=== PATIENT | female | born 1960 | race Caucasian/White ===

== ENCOUNTER → 2022-10-11 | Outpatient (CLI) | payer OTHER, SELFPAY ==
--- NOTE | 2022-10-11 14:18 | BI_ITS ---
MAMMOGRAPHY - BILATERAL SCREENING REASON FOR EXAM: Female, 62 years old. Routine annual screening examination. PERTINENT HISTORY: Mother with breast cancer. TECHNIQUE: Digital bilateral breast lucio (3D mammographic acquisition) in the CC and MLO projections. 2-D mediolateral oblique (MLO) and craniocaudad (CC) views of both breasts were obtained. CAD: Full Field Digital Mammography with Computer Added Detection was performed. COMPARISON: Comparison is made with prior study dated 03/20/2012. FINDINGS: Breast Composition: The breasts are almost entirely fatty. There are no dominant masses or suspicious calcifications. A tissue clip marker is seen in the upper midportion of the right Stable small benign-appearing bilateral axillary lymph nodes. No other significant abnormalities are identified. There has been no significant change since the prior study. BI/SCRN MAMM (CAD)W/LUCIO BILAT IMPRESSION: Stable bilateral screening mammogram. Yearly follow-up mammogram recommended. (A) ASSESSMENT CATEGORY: BIRADS Category 2: Benign. A letter regarding these results will be sent to the patient by the facility within 30 days. Approximately 10% of breast cancers are not detected by mammography. A normal mammogram should not delay biopsy of a clinically suspicious abnormality. [id number] Electronically Signed: Sae Crawford MD at 9:00 EST ,
== END | disposition home or self-care (01) ==
LOC: OPBI 14:15
DX: Z12.31 Encounter for screening mammogram for malignant neoplasm of breast (principal); Z80.3 Family history of malignant neoplasm of breast
CPT/HCPCS: 77063; 77067

== ENCOUNTER 2023-06-22 10:19 | Emergency (ER) | payer OTHER, SELFPAY ==
[2023-06-22 10:20] VITALS: BP 151/81; PULSE 93; RESP 18; TEMP 35.8; O2SAT 97; BMI 41.5
--- NOTE | 2023-06-22 10:36 | EDS_ITS ---
HPI History of Present Illness Chief Complaint: Back PFSH PFSH Home Medications oxycodone 5 mg capsule 5 mg PO Q6H PRN pain 3 days #12 caps 06/22/23 [Rx Last Taken Unknown] prednisone 50 mg tablet 50 mg PO DAILY 5 days #5 tabs 06/22/23 [Rx Last Taken Unknown] sulfamethoxazole 800 mg-trimethoprim 160 mg tablet (Bactrim DS) 1 tab PO BID 7 days #14 tabs 06/22/23 [Rx Last Taken Unknown] Allergy/AdvReac Type Severity Reaction Status Date / Time No Known Allergies Allergy Verified 06/22/23 10:23 EXAM Physical Exam Const Vital Signs: 06/22/23 10:20 Temperature 96.5 F L Temperature Source Temporal Pulse Rate 93 Respiratory Rate 18 Blood Pressure 151/81 H Blood Pressure Mean 104 Pulse Ox 97 Oxygen Delivery Method Room Air [facility] [place] Narrative Medical decision making narrative: HISTORY OF PRESENT ILLNESS: 63year-old female presents s with back pain. Patient states she is been doing this for 3 weeks. Notes sciatic pain. States been taking gabapentin with no relief. She also complains of concern for infection located over her posterior right thigh. Patient denies any saddle anesthesia, urinary tension, bowel or bladder incontinence, lower extremity weakness, fever or IV drug use, no recent spinal manipulation or surgery, no recent urinary catheterization. REVIEW OF SYSTEMS: All other systems reviewed and are negative except as noted in the history of present illness. At least 10 review of systems reviewed and are negative except as noted in history of present illness. PHYSICAL EXAM: Nursing triage notes reviewed, Vital signs reviewed Constitutional: please see mdm HENT: MMM Eyes: Pupils equal round and reactive to light, Extraocular muscles intact Neck: No stridor, no JVD, full neck ROM Lungs: Clear to auscultation, No wheezing or rales. No increased work of breathing, no conversational dyspnea, no accessory muscle use, no nasal flaring. No respiratory distress noted Heart: Regular rate and rhythm, No murmurs, No rubs and No gallops, 2+ distal pulses (radial, femoral, posterior tibial) in all extremities Abdomen: Soft, there is no tenderness, rigidity, rebound or guarding, no obvious peritoneal signs, no palpable pulsatile abdominal masses, no auscultated abdominal bruit : No CVAT Extremities: No edema Back: No midline step-offs or deformities Neuro: Intact sensation L1-S1 dermatomal distributions. Intact 5/5 strength in hip flexion (T12-L3). Knee extension (L2-L4). Ankle dorsiflexion (L4-L5). Ankle plantar flexion (S1). Great toe extension (L5). 2+ patellar and Achilles DTRs. Skin: Erythema noted to posterior right thigh, no fluctuance, no induration, no crepitus MEDICAL DECISION MAKING: Chief Complaint: Back pain External records reviewed: No recent advanced imaging of the spine Factors affecting care: None Social determinants of health: No IV drug use History obtained from others: none Consults: none ALL IMAGES (IF OBTAINED) HAVE BEEN PERSONALLY REVIEWED AND INTERPRETED BY MYSELF. MDM Narrative: The patient was hemodynamically stable, afebrile, nontoxic-appearing. Exam consistent with likely right thigh cellulitis and sciatic or musculoskeletal back pain I considered the following differential diagnosis: Musculoskeletal back pain, space-occupying lesion of the spinal (epidural abscess, epidural hematoma), cauda equina, conus medullaris, fracture dislocation, AAA, nephrolithiasis, pyelonephritis, aortic dissection The patient presented complaining of back pain. There was no history of recent fall or trauma. There was no evidence to support genitourinary etiology. There is also no evidence to suggest vascular pathology such as AAA dissection. No fevers or other evidence to suspect infectious processes, abscess, osteomyelitis etc. The patient?s neurological exam is normal with normal motor and sensory. There is no saddle paresthesias reported and no bowel or bladder incontinence or retention. I suspect the pain is mechanical in nature. Clinical suspicion, plan of care and management was discussed with the patient. The patient was instructed to follow up with their health care provider. The patient was also instructed to return if the pain worsened, changed, or developed weakness or bowel or bladder trouble. The patient agreed with plan. I completed a structured, evidence-based clinical evaluation to screen for acute non-traumatic spinal emergencies. The patient has a normal detailed neurologic exam and red flag historical factors were negative. The evidence indicates that the patient is very low risk for an acute spinal emergency and this is consistent with my clinical intuition. The risk of further workup is higher than the likelihood of the patient having a spinal epidural abscess or other dangerous emergency spinal condition. It is, therefore, in the patient?s best interest not to do additional emergent testing at this time. Shared Decision-Making I have discussed with the patient my clinical impression and the result of an evidence-based clinical evaluation to screen for spinal epidural abscess and other spinal emergencies, as well as the risk of further testing and hospitalization. The evidence shows that the risk for an acute spinal emergency is less than 1%. Although the risk of an acute spinal emergency has not been completely eliminated, the risks of further testing likely exceed any potential benefit, and the patient agrees with not pursuing further emergent evaluation for causes of back pain at this time. The patient and/or family, caregivers express understanding. The patient and/or family, caregivers agrees with the plan. Total critical care time today provided was at least 0 minutes. This excludes separately billable procedures. Critical care time (if documented) is secondary to the patient having high probability of clinically significant/life threatening deterioration in the patient's condition which required my urgent intervention. Elkin Blackman DO Discharge Plan Triage Chief Complaint: Back ED Provider: Elkin Blackman Dx/Rx/DC Orders Clinical Impression: Cellulitis, Sciatic radiculitis Instructions: Cellulitis Dc, ED Sciatica Prescriptions: New oxycodone 5 mg capsule 5 mg PO Q6H PRN (Reason: pain) 3 Days Qty: 12 0RF prednisone 50 mg tablet 50 mg PO DAILY 5 Days Qty: 5 0RF sulfamethoxazole-trimethoprim [Bactrim DS] 800-160 mg tablet 1 tab PO BID 7 Days Qty: 14 0RF [facility] [facility]errals[place] [facility] [Primary Care Provider] - Activity Restrictions/Additional Instructions: Thank you for trusting us with your care today! Please take Tylenol (2 pills, 650 mg), ibuprofen every 6 hours as needed for pain and fever control. If this does not control your pain please take oxycodone. Please take prednisone as prescribed. Please return to the emergency department if your symptoms change or worsen. Specifically develop bowel or bladder incontinence, urinary retention, lack of sensation around your private parts or saddle anesthesia, lack of the ability to move your legs, decree sensation in your legs. Please follow with your primary care physician for further outpatient evaluation and management. Disposition Disposition: Home, Self Care
[2023-06-22] MEDS: Oxycodone/Apap 5/325 Tablet PO (11:24)
[2023-06-22] MEDS: Smz/Tmp Ds Tablet 1 TABLET PO (11:24)
[2023-06-22] MEDS: predniSONE 20 MG Tablet 40 MG PO (11:24)
== END 2023-06-22 11:28 | disposition home or self-care (01) ==
LOC: ED 11:22
PROVIDERS: Emergency Provider Emergency Medicine; Visit Provider Emergency Medicine
DX: M54.31 Sciatica, right side (principal); L03.115 Cellulitis of right lower limb
CPT/HCPCS: 99283

== ENCOUNTER 2023-08-16 16:34 | Emergency (ER) | payer MEDICARE, OTHER, SELFPAY ==
[2023-08-16 16:35] VITALS: BP 124/64; PULSE 74; RESP 16; TEMP 35.9; BMI 40.9
--- NOTE | 2023-08-16 16:48 | ED.VIS.LOWEX ---
HPI History of Present Illness Chief Complaint: Lower Extremity Injury Detail of Chief Complaint: Lateral and medial aspect of proximal right thigh, and anterior right leg p Informant: patient Onset/Context/Timing Onset: Days (Over the past 2 days) and Weeks Timing: Continuous and Waxes and wanes Quality of Pain: - (Pain) Location: Previously documented Maximum Severity: Moderate Worsened by: Movement and weightbearing Relieved by: Not Associated Symptoms Associated Symptoms: Negative for Parasthesia, Weakness or Loss of Funtion Narrative Narrative: Patient is a 63-year-old morbidly obese woman with history of osteoarthritis who needs a right total hip arthroplasty. She states she needs to lose weight before they will operate on her. She denies trauma. She denies symptoms of claudication. She denies fever, chills night sweats. She denies nausea, vomiting or diarrhea. She denies bowel or bladder dysfunction. She denies saddle paresthesia or anesthesia. She denies radicular pain. She localizes the pain over the right greater trochanteric region, medial proximal right thigh near the inguinal region and anterior right leg. She appears in no distress. She has no other symptoms. Patient is in pain management. Tetanus Immunization: Unknown Prior similar symptoms: Yes Recent Illness/Hospitalization: No PFSH PFSH Medical History Anxiety Arthritis Chronic back pain Depression Family history of cholecystectomy Hyperlipidemia Hypertension Kidney disease Home Medications oxycodone 5 mg capsule 5 mg PO Q6H PRN pain 3 days #12 caps 06/22/23 [Rx Last Taken Unknown] prednisone 50 mg tablet 50 mg PO DAILY 5 days #5 tabs 06/22/23 [Rx Last Taken Unknown] sulfamethoxazole 800 mg-trimethoprim 160 mg tablet (Bactrim DS) 1 tab PO BID 7 days #14 tabs 06/22/23 [Rx Last Taken Unknown] Allergy/AdvReac Type Severity Reaction Status Date / Time No Known Allergies Allergy Verified 08/16/23 16:35 Surgical History H/O partial thyroidectomy H/O: hysterectomy Social History (Updated 08/16/23 @ 16:[address] Phi Cantu MD) household members: significant other Smoking Status: Never smoker ROS ROS ED Constitutional Constitutional ED: Denies chills, fever(s), subjective, sweats or weight loss Eyes Eyes: Denies blurry vision or change in vision Cardiovascular Cardiovascular: Denies chest pain or palpitations Respiratory/Chest Respiratory/Chest: Denies cough, dyspnea or dyspnea on exertion Gastrointestinal Gastrointestinal: Denies abdominal pain, diarrhea, nausea or vomiting Genitourinary Genitourinary ED: Denies dysuria, hematuria or urinary frequency Musculoskeletal Musculoskeletal: Reports other Details: Per HPI negative ; Denies arthralgias, back pain, myalgias or neck pain Integumentary Denies rash Neurologic Neurologic: Denies paresthesias or weakness Hematologic/Lymphatic Hematologic/Lymphatic: Denies easy bleeding or easy bruising EXAM Physical Exam Const Vital Signs: 08/16/23 16:35 08/16/23 16:35 Temperature 96.7 F L 96.7 F L Temperature Source Temporal Temporal Pulse Rate 74 74 Respiratory Rate 16 16 Blood Pressure 124/64 H 124/64 H Blood Pressure Mean 84 84 Positive well nourished, well developed and obese General Appearance ED: well developed and NAD Nutritional Appearance: obese HEENT Reports moist mucous membranes normocephalic and atraumatic Eyes PERRL Eyes Narrative: Ocular muscles are intact. Active is pink. Resp normal respiratory effort, no retractions and clear to auscultation bilaterally Cardio regular rate, regular rhythm, S1 normal heart sound, S2 normal heart sound and no murmurs GI non-tender, non-distended and no masses Auscultation: normoactive bowel sounds Palpation: soft Back/Spine no CVA tenderness Thoracic Spine / Upper Back: Negative for thoracic spinal tenderness Lumbar Spine / Lower Back: Negative for lumbar spinal tenderness Extremity normal to inspection Extremity Narrative: MADDISON for test causes discomfort medially. No pain with passive flexion extension of the hip or internal/external rotation. There is no swelling of the right knee compared to the left. There is no effusion and the patella is not ballotable. Anterior right leg is unremarkable. PT pulses palpable and symmetric. Patient does not have reproducible pain. There is no skin lesions noted nor is there a rash. General Extremety ED: Negative for cyanosis or edema General Extremity: Negative for cyanosis or edema Neuro oriented x3, CN's II-XII intact bilaterally, moves all extremities and no sensory deficits noted Motor Exam: strength 5/5 throughout Deep Tendon Reflexes: Rt Patellar (L4): 2+, Lt Patellar (L4): 2+ and Rt Ankle (S1): 2+ Deep Tendon Reflexes Back: Rt Patellar (L4): 2+, Lt Patellar (L4): 2+ and Rt Ankle (S1): 2+ Plantar Reflex: Downgoing: bilateral Psych mental status grossly normal Skin Lesions: no lesions Rashes: no rashes MDM MDM MDM Narrative Medical decision making narrative: Form since she is in pain management I will not write her prescription as this will violate her contract. She acknowledged that it would. She was given a dose of pain medicine here. I was walking out the door she asked if I would give her a work excuse. I informed her that I would document that she was seen here. Neurovascular mise. This is a chronic issue. Discharge Plan Triage Chief Complaint: Lower Extremity Injury ED Provider: Phi Cantu Dx/Rx/DC Orders Clinical Impression: Osteoarthritis of right hip, Right hip pain Instructions: ED Osteoarthritis Prescriptions: No Action oxycodone 5 mg capsule 5 mg PO Q6H PRN (Reason: pain) 3 Days Qty: 12 0RF prednisone 50 mg tablet 50 mg PO DAILY 5 Days Qty: 5 0RF sulfamethoxazole-trimethoprim [Bactrim DS] 800-160 mg tablet 1 tab PO BID 7 Days Qty: 14 0RF Stand Alone Forms: ED Work / School Excuse [facility] [Primary [facility] Provider] - As Needed Disposition Disposition: Home, Self Care
[2023-08-16] MEDS: HYDROcodone Bitartrate/Apap 5/325 Tablet PO (17:11)
[2023-08-16 17:25] VITALS: PULSE 76; RESP 16; O2SAT 98
== END 2023-08-16 17:28 | disposition home or self-care (01) ==
PROVIDERS: Emergency Provider Emergency Medicine; Visit Provider Emergency Medicine
DX: M16.11 Unilateral primary osteoarthritis, right hip (principal); E66.01 Morbid (severe) obesity due to excess calories; M25.551 Pain in right hip
CPT/HCPCS: 99282

== ENCOUNTER 2023-09-10 12:31 | Observation (INO) | payer OTHER, SELFPAY ==
[2023-09-10] VITALS (7 sets, daily range): BP systolic 116–154; BP diastolic 51–83; PULSE 67–73; RESP 14–18; TEMP 36–37.2; O2SAT 96–98; BMI 40.6; BMI 39.4; BMI 40.0
--- NOTE | 2023-09-10 12:41 | EKG12_ITS ---
Test Reason : STROKE ALERT Blood Pressure : / mmHG Vent. Rate : 071 BPM Atrial Rate : 071 BPM P-R Int : 174 ms QRS Dur : 084 ms QT Int : 400 ms P-R-T Axes : 041 047 064 degrees QTc Int : 434 ms Normal sinus rhythm Normal ECG Confirmed by RENEE FORD, ÁLVARO ([id number]), editor greeting card LEVI NIX ([id number]) on 09/16/2023 10:18:43 AM Referred By: Confirmed By:MUNA DURAN MD
--- NOTE | 2023-09-10 12:41 | CT_ITS ---
STUDY: CT HEAD STROKE PROTOCOL W/O CONTRAST INJECTION REASON FOR EXAM: Female, 63 years old. Neuro deficit, acute, stroke suspected RADIATION DOSAGE (If Supplied By Facility): CTDIvol = ( 44.99 ) mGy, DLP = ( 779.24 ) mGycm TECHNIQUE: Transaxial CT imaging of the brain was performed without administration of intravenous contrast material. Individualized dose optimization techniques were used for this CT. COMPARISON: No relevant priors. FINDINGS: Normal soft tissue structures. There is hyperostosis frontalis internus. Normal size ventricles and extra-axial spaces for the patient''s age. There are areas of decreased attenuation within the white matter tracts of the supratentorial brain, consistent with microvascular disease changes. Normal basal ganglia and thalami. Normal brainstem. Normal cerebellum. There is no intracranial hemorrhage. There are no findings of an acute ischemic infarction. Atherosclerotic plaque formation of the cavernous portions of the internal carotid arteries bilaterally. Normal visualized paranasal sinuses. ASPECT score: 10 CT/STROKE Brain/Head without Cont IMPRESSION: Chronic involutional changes of the brain. N.B. : The above Results were Read Back by Sae Crawford MD to Dr Les DO, and understanding confirmed on 09/10/2023 13:04:07 (ET). Electronically Signed: Sae Crawford MD at 13:05 EST ,
--- NOTE | 2023-09-10 12:42 | CT_ITS ---
STUDY: CTA HEAD AND NECK WITH CONTRAST REASON FOR EXAM: Female, 63 years old. Neuro deficit, acute, stroke suspected RADIATION DOSAGE (If Supplied By Facility): CTDIvol = ( 22.31 ) mGy, DLP = ( 743.31 ) mGycm TECHNIQUE: CT angiography was performed with a multi-detector CT scanner. Data acquisition was obtained from the skull base through the vertex following intravenous administration of IV 100mL [id number]-[id number]. MIP images were reconstructed from the axial data set. Post-processing of the angiographic images was performed, with multiplanar reformation and 3D reconstruction. Individualized dose optimization techniques were used for this CT. COMPARISON: No relevant priors. FINDINGS: Normal bilateral petrous carotid arteries. Normal right cavernous carotid artery with a normal supraclinoid bifurcation. Normal left cavernous carotid artery with a normal supraclinoid bifurcation. Normal right A1 segments of the anterior cerebral artery. Normal left A1 segments of the anterior cerebral artery. Normal intact anterior communicating artery (ACOM). Normal bilateral A2 segments of the anterior cerebral arteries. Normal right M1 and M2 segments of the middle cerebral arteries, with a normal M1 bifurcation. Normal left M1 and M2 segments of the middle cerebral arteries, with a normal M1 bifurcation. Normal right posterior communicating artery (PCOM). Normal left posterior communicating artery (PCOM). Normal bilateral vertebral arteries. Normal basilar artery with a normal basilar bifurcation. The visualized bilateral superior cerebellar (SCA) arteries are normal. Normal bilateral P1, P2 and visualized P3 segments of the posterior cerebral arteries. There is no demonstrated aneurysm of the picayune of [place]. There is no demonstrated abnormality of the visualized brain. AORTIC ARCH: There is mild atherosclerotic calcific plaque formation of the aortic arch and great vessels arising from the aortic arch, without a hemodynamically significant stenosis. There is a normal origin of the brachiocephalic, left common carotid, and left subclavian arteries. Heterogeneous enlargement of the left lobe of the thyroid as well as the isthmus with multiple hypodense nodules. The right lobe of the thyroid is not seen most likely secondary to prior resection. RIGHT CAROTID ARTERIES: Normal right common carotid artery (CCA). Normal right common carotid bulb. Normal origin of the right internal carotid (ICA) artery without a hemodynamically significant stenosis. Normal visualized cervical portion of the right internal carotid artery. Normal origin of the right external carotid artery (ECA). LEFT CAROTID ARTERIES: Normal left common carotid artery (CCA). Normal left common carotid bulb. Normal origin of the left internal carotid (ICA) artery without a hemodynamically significant stenosis. Normal visualized cervical portion of the left internal carotid artery. Normal origin of the left external carotid artery (ECA). VERTEBRAL ARTERIES: Normal bilateral vertebral arteries. CT/STROKE CTA Head AND Neck W/Con IMPRESSION: No significant atherosclerotic disease is seen. Heterogeneous enlargement of the isthmus and left lobe of the thyroid. The right lobe of the thyroid is not visualized and most likely has been resected. N.B. : The above Results were Read Back by Sae Crawford MD to Dahlia Astorga and understanding confirmed on 09/10/2023 13:09:26 (ET). Electronically Signed: Sae Crawford MD at 13:11 EST ,
--- NOTE | 2023-09-10 12:43 | EDS_ITS ---
HPI History of Present Illness Chief Complaint: Neuro S/Sx Detail of Chief Complaint: Speech difficulty and vision changes Informant: patient Narrative Narrative: Patient presents to the emergency department with complaint of slurred speech that started last evening around 8 PM. Patient states that she came home from work and her roommate told her that she sounded like she was drunk. Patient also had double vision. She woke up this morning and talk to nurse at the [facility] who advised her to seek medical attention. Patient states that her speech seems better now and her vision has improved but still sees some double vision and some blurry vision. She feels like the object she is looking at are 1 on top of the other. Patient also complains of some numbness to the left arm. She does have history of hypertension and high cholesterol. She is not on blood thinners. She denies any falls or head injuries. [facility] Medical History Anxiety Arthritis Chronic back pain Depression Family history of cholecystectomy Hyperlipidemia Hypertension Kidney disease Home Medications oxycodone 5 mg capsule 5 mg PO Q6H PRN pain 3 days #12 caps 06/22/23 [Rx Last Taken Unknown] prednisone 50 mg tablet 50 mg PO DAILY 5 days #5 tabs 06/22/23 [Rx Last Taken Unknown] sulfamethoxazole 800 mg-trimethoprim 160 mg tablet (Bactrim DS) 1 tab PO BID 7 days #14 tabs 06/22/23 [Rx Last Taken Unknown] Allergy/AdvReac Type Severity Reaction Status Date / Time No Known Allergies Allergy Verified 08/16/23 16:35 Surgical History H/O partial thyroidectomy H/O: hysterectomy Social History (Updated 08/16/23 @ 16:[address] Phi Cantu MD) household members: significant other Smoking Status: Never smoker ROS ROS ED Review of Systems ROS Unobtainable: other Constitutional Constitutional ED: Reports lethargy; Denies chills, fever(s), sweats or weight loss Eyes Eyes: Reports blurry vision, change in vision and diplopia ENT ENT ED: Reports other; Denies rhinorrhea or sore throat Cardiovascular Cardiovascular: Denies chest pain, orthopnea or racing heartbeat Respiratory/Chest Respiratory/Chest: Denies cough, dyspnea, dyspnea on exertion, orthopnea or sputum Gastrointestinal Gastrointestinal: Denies abdominal pain, diarrhea, nausea or vomiting Genitourinary Genitourinary ED: Denies dysuria, hematuria or urinary frequency Musculoskeletal Musculoskeletal: Denies arthralgias, back pain, myalgias or neck pain Integumentary Denies abscess, Abrasions or rash Neurologic Neurologic: Reports paresthesias; Denies headache(s) or weakness Psychiatric Psychiatric: Denies anxiety, depression or suicidal thoughts Endocrine Endocrinology: Denies polydipsia, polyphagia or polyuria Hematologic/Lymphatic Hematologic/Lymphatic: Denies easy bleeding, easy bruising or lymphadenopathy Allergic/Immunologic Allergic/Immunologic ED: Denies mouth swelling, tongue swelling or urticaria EXAM Physical Exam Const Vital Signs: 09/10/23 13:01 09/10/23 13:02 09/10/23 13:04 Temperature 96.8 F L Temperature Source Temporal Pulse Rate 68 Respiratory Rate 18 Blood Pressure 154/83 H Blood Pressure Mean 106 Pulse Ox 98 Oxygen Delivery Method Room Air Room Air Positive well nourished and well developed General Appearance ED: well developed and NAD HEENT Reports TM's clear and moist mucous membranes normocephalic and atraumatic; Negative for trauma or tenderness Tympanic Membrane ED: Yes TM's clear Eyes PERRL and EOMs intact bilaterally General Eye ED: Negative for pale conjunctiva or scleral icterus Neck no lymphadenopathy, supple and no JVD General: Negative for tenderness Chest Wall inspection of chest normal and palpation of chest normal Chest: Negative for tenderness Resp normal respiratory effort and clear to auscultation bilaterally Effort and Inspection: Negative for respiratory distress or pain with movement Auscultation: Negative for rhonchi, wheezes or diminished lung sounds Cardio regular rate, regular rhythm, S1 normal heart sound, S2 normal heart sound and no murmurs Peripheral Pulses: pulses 2+ throughout GI normal to inspection, nondistended, normoactive bowel sounds, soft to palpation, non-tender, non-distended and no masses Back/Spine no CVA tenderness and no thoracic nor lumbar tenderness Extremity normal to inspection General Extremety ED: Negative for edema General Extremity: Negative for edema Neuro oriented x3, CN's II-XII intact bilaterally, no sensory deficits noted and gait normal Neuro Narrative: Patient's NIH stroke scale is a 2 with some paresthesias to the left forearm and hand and double vision. I do not appreciate any dysarthria. There is no facial droop noted. No focal weakness otherwise noted. Sensorium / Orientation: awake, alert, oriented to person, oriented to place and oriented to time Motor Exam: strength 5/5 throughout and strength abnormal Psych mental status grossly normal Skin no rashes or lesions noted and no wounds MDM MDM MDM Narrative Medical decision making narrative: Patient presents to the emergency department with symptoms that started last evening at 8 PM concerning for stroke. IV line established. Stroke team was called. Patient will go to CT scan for imaging and will obtain CTAs of head and neck. Will obtain basic labs as well as EKG to evaluate further. Patient will not be a thrombolytic candidate given symptom onset was more than 16 hours ago. CBC with differential count 6.3 with hemoglobin of 15.2 and platelet count of 183. Chemistries unremarkable. BUN 23 and creatinine 1.15. Troponin normal at 6. CT scan of the brain showed chronic involutional changes without evidence of acute stroke. CTA of head and neck showed no large vessel occlusions. Patient was seen by stroke neurologist at [facility] who recommended admission for stroke work-up completion and MRI. Lab Data Attestation: I reviewed the patient's lab results. Labs: Laboratory Results - last 24 hr 09/10/23 09/10/23 12:42 12:54 WBC 6.3 RBC 5.16 Hgb 15.2 H Hct 45.3 MCV 87.8 MCH 29.5 MCHC 33.6 RDW Std Deviation 38.5 RDW Coeff of Romario 11.9 Plt Count 183 MPV 8.7 Immature Gran % (Auto) 0.200 Neut % (Auto) 58.1 Lymph % (Auto) 30.7 [place] % (Auto) 9.5 Eos % (Auto) 1.0 Baso % (Auto) 0.5 Absolute Neuts (auto) 3.7 Absolute Lymphs (auto) 1.94 Nucleated RBC % 0 PT 12.0 INR 0.9 APTT 25.6 Sodium 139 Potassium 4.1 Chloride 107 Carbon Dioxide 28.0 Anion Gap 4 L BUN 23 H Creatinine 1.15 H Est GFR (MDRD) Af Amer 61 Est GFR (MDRD) Non-Af 50 L BUN/Creatinine Ratio 20.0 Glucose 97 Calcium 8.8 Troponin I High Sens 6 POC Glucose 88 Radiography Diagnostic Testing: Clinical Impression(s) from Imaging Studies Brain CT 09/10/23 12:41 IMPRESSION: Chronic involutional changes of the brain. N.B. : The above Results were Read Back by Sae Crawford MD to Dr Les DO, and understanding confirmed on 09/10/2023 13:04:07 (ET). Electronically Signed: Sae Crawford MD at 13:05 EST , ADDENDUM: 09/10/23 1312 IMPRESSION: Chronic involutional changes of the brain. N.B. : The above Results were Read Back by Sae Crawford MD to Dr Les DO, and understanding confirmed on 09/10/2023 13:04:07 (ET). Electronically Signed: Sae Crawford MD at 13:05 EST , Head/Neck CTA 09/10/23 12:42 IMPRESSION: No significant atherosclerotic disease is seen. Heterogeneous enlargement of the isthmus and left lobe of the thyroid. The right lobe of the thyroid is not visualized and most likely has been resected. N.B. : The above Results were Read Back by Sae Crawford MD to Dahlia Astorga and understanding confirmed on 09/10/2023 13:09:26 (ET). Electronically Signed: Sae Crawford MD at 13:11 EST , ADDENDUM: 09/10/23 1318 IMPRESSION: No significant atherosclerotic disease is seen. Heterogeneous enlargement of the isthmus and left lobe of the thyroid. The right lobe of the thyroid is not visualized and most likely has been resected. N.B. : The above Results were Read Back by Sae Crawford MD to Dahlia Astorga and understanding confirmed on 09/10/2023 13:09:26 (ET). Electronically Signed: Sae Crawford MD at 13:11 EST , Chest X-Ray 09/10/23 13:15 IMPRESSION: No acute abnormality is seen. Electronically Signed: Sae Crawford MD at 13:29 EST , 1 view chest x-ray obtained interpreted by myself as no evidence of infiltrate or acute process. Radiology in agreement. EKG Initial EKG: Attestation: I personally reviewed and interpreted this EKG as follows: Comments: This rhythm with a ventricular rate of 71 bpm with no acute ST segment changes noted Discharge Plan Triage Chief Complaint: Neuro S/Sx ED Provider: Dahlia Astorga Dx/Rx/DC Orders Clinical Impression: Diplopia, Acute CVA (cerebrovascular accident), Hypertension Prescriptions: No Action oxycodone 5 mg capsule 5 mg PO Q6H PRN (Reason: pain) 3 Days Qty: 12 0RF prednisone 50 mg tablet 50 mg PO DAILY 5 Days Qty: 5 0RF sulfamethoxazole-trimethoprim [Bactrim DS] 800-160 mg tablet 1 tab PO BID 7 Days Qty: 14 0RF [facility] [Primary [facility] Provider] - Disposition Disposition: Acute Care Hospital [facility]
[2023-09-10 12:52] LABS: Absolute Lymphocyte Count 1.94 X10^3/uL (0.83-4.51); Absolute Neutrophil Count 3.7 X10^3/uL (2.0-7.7); Basophil# 0.03 X10^3/uL; Basophil% 0.5 % (0-1); Eosinophil# 0.06 X10^3/uL; Hematocrit 45.3 % (37-47); Hemoglobin 15.2 g/dL (12.0-15.0); Lymphocyte # 1.94 X10^3/ul (0.83-4.51); Lymphocyte % 30.7 % (19-41); Mean Corp Hgb Conc 33.6 g/dL (32-36); Mean Corpuscular Hgb 29.5 pg (27.0-32.0); Mean Corpuscular Volume 87.8 fL (81-99); Mean Platelet Vol. 8.7 fl (6.2-12.0); Monocyte% 9.5 % (0-10); NRBC Flagged by Analyzer 0 % (0-5); Neutrophil # 3.67 X10^3/uL (2.7-7.7); Neutrophil % 58.1 % (47-70); Platelet Count 183 K/mm3 (150-450); RBC Distribution Width CV 11.9 % (11.6-14.6); RBC Distribution Width SD 38.5 fl (35.1-43.9); Red Blood Count 5.16 M/mm3 (4.2-5.4); White Blood Count 6.3 K/mm3 (4.4-11.0)
[2023-09-10 13:06] LABS: International Normalized Ratio 0.9
[2023-09-10 13:07] LABS: Partial Thromboplast Time 25.6 Seconds (24.1-36.2)
[2023-09-10 13:11] LABS: Bedside Glucose 88 mg/dL (74-106)
[2023-09-10 13:13] LABS: Anion Gap 4 (5-15); BUN 23 mg/dL (7-18); Calcium,Total 8.8 mg/dL (8.5-10.1); Chloride 107 mmol/L (98-107); Creatinine, Serum 1.15 mg/dL (0.55-1.02); EST Glomerular Filtration Rate 50 mL/min (>60); Est Glom Filt Rate - Afr Amer 61 mL/min (>60); Glucose 97 mg/dL (74-106); Potassium 4.1 mmol/L (3.5-5.1); Sodium Level 139 mmol/L (136-145); Troponin-I HS 6 pg/mL (3.0-54.0)
--- NOTE | 2023-09-10 13:15 | RAD_ITS ---
STUDY: X-RAY CHEST REASON FOR EXAM: Female, 63 years old. Neuro deficit, acute, stroke suspected TECHNIQUE: Single AP portable view of the chest. COMPARISON: None. FINDINGS: EKG electrodes are seen. The lungs are clear and expanded. There is no demonstrated pleural abnormality. Normal size heart. Normal mediastinum and loren. Normal visualized pulmonary arteries. Normal visualized aortic arch and descending thoracic aorta. There are diffuse degenerative changes of the visualized thoracic spine. Normal visualized ribs, clavicles, and shoulders. There is no demonstrated abnormality of the visualized soft tissue structures of the upper abdomen. RAD/Chest 1 View IMPRESSION: No acute abnormality is seen. Electronically Signed: Sae Crawford MD at 13:29 EST ,
--- NOTE | 2023-09-10 14:23 | ED.RN ---
[facility] BEING ADMITTED FOR CVA. CHART FAXED OVER.
--- NOTE | 2023-09-10 14:50 | HP.PCM.HOS_ITS ---
HPI - General General Date of Admission: 09/10/23 HPI Narrative ARRON SMITH, is a 63 F who presents course to the hospital with signs and symptoms consistent of a possible stroke. Last night she came home from work and she noticed that she had significant blurry vision and double vision as well as slurred speech. At that point she decided to go to bed and when she woke up this morning she still had the symptoms though to a lesser extent. Since coming to the hospital she says that her double vision has resolved she still has little bit of blurry vision that appears worse on the left and she thinks that her slurred speech has resolved. She did notice some left upper extremity n umbness during these episodes as well however that appears to have resolved since arrival. CTA of the head and neck was unremarkable and CT of the brain was normal. [facility] Medical History Anxiety Arthritis Chronic back pain Depression Family history of cholecystectomy Hyperlipidemia Hypertension Kidney disease Home Medications atenolol 50 mg tablet 50 mg PO BID 09/10/23 [History Last Taken Unknown] atorvastatin 20 mg tablet 20 mg PO QHS 09/10/23 [History Last Taken Unknown] baclofen 10 mg tablet 10 mg PO TID 09/10/23 [History Last Taken Unknown] buspirone 10 mg tablet 10 mg PO BID 09/10/23 [History Last Taken Unknown] celecoxib 100 mg capsule (Celebrex) 100 mg PO BID 09/10/23 [History Last Taken Unknown] cholecalciferol (vitamin D3) 25 mcg (1,000 unit) capsule (Vitamin D3) 25 mcg PO DAILY 09/10/23 [History Last Taken Unknown] pregabalin 150 mg capsule (Lyrica) 150 mg PO BID 09/10/23 [History Last Taken Unknown] sertraline 100 mg tablet 200 mg PO DAILY 09/10/23 [History Last Taken Unknown] tizanidine 4 mg capsule 4 mg PO Q8H 09/10/23 [History Last Taken Unknown] tramadol 50 mg tablet 100 mg PO Q6H PRN pain 09/10/23 [History Last Taken Unknown] Allergy/AdvReac Type Severity Reaction Status Date / Time No Known Allergies Allergy Verified 08/16/23 16:35 Family History (Updated 09/10/23 @ 14:[address] Donald Rolle MD) Other Cancer Heart disease Surgical History H/O partial thyroidectomy H/O: hysterectomy Social History (Updated 08/16/23 @ 16:[address] Phi Cantu MD) household members: significant other Smoking Status: Never smoker ROS Constitutional Constitutional: Denies chills, fatigue, fever(s) or malaise Eyes Eyes: Reports blurry vision and double vision ENT HEENT: Denies headache(s) or nasal discharge Cardiovascular Cardiovascular: Denies chest pain, dyspnea on exertion or syncope Respiratory/Chest Respiratory/Chest: Denies cough, shortness of breath at rest or shortness of breath with exertion Gastrointestinal Gastrointestinal: Denies constipation, diarrhea, nausea or vomiting Genitourinary Genitourinary: Denies dysuria Neurologic Neurologic: Reports abnormal speech and tingling; Denies focal weakness, numbness or tremor(s) Psychiatric Psychiatric: Denies anxiety or depression Vital Signs Vital Signs Vital Signs: 09/10/23 13:01 09/10/23 13:02 09/10/23 13:04 Temperature 96.8 F L Temperature Source Temporal Pulse Rate 68 Respiratory Rate 18 Blood Pressure 154/83 H Blood Pressure Mean 106 Pulse Ox 98 Oxygen Delivery Method Room Air Room Air 09/10/23 14:37 Temperature 98.9 F Temperature Source Pulse Rate 67 Respiratory Rate 16 Blood Pressure 146/70 H Blood Pressure Mean 95 Pulse Ox 96 Oxygen Delivery Method Weight Weight: 229 lb 11.547 oz Body Mass Index (BMI) 39.4 Physical Exam Narrative General: Alert, Oriented x3, Cooperative, No apparent distress HEENT: Atraumatic, PERRLA, EOMI, Normocephalic Oral: Moist Mucosa Neck: Supple, No JVD Lungs: Diminished, Normal air movement, No rhonchi, No wheeze, No rales Cardiovascular: Regular rate, Regular Rhythm, Normal S1, Normal S2, No murmurs Abdomen: Soft, Non Tender, Non-Distended, No Hepato-splenomegaly Extremities: No edema, Capillary Refill Less than 3 Seconds Skin: No rashes, No breakdown Musculoskeletal: No Tenderness to Palpation of Joints or Extremities Neurological: Cranial nerves II-XII grossly intact, Motor Exam 5/5 strength throughout, Sensory exam intact to light touch and pain, NIH of 0 Psych/Mental Status: Normal Affect, Appropriate Results Lab / Micro Data 09/10/23 12:42 09/10/23 12:42 Labs: Laboratory Results - last 24 hr 09/10/23 12:42: WBC 6.3, RBC 5.16, Hgb 15.2 H, Hct 45.3, MCV 87.8, MCH 29.5, MCHC 33.6, RDW Std Deviation 38.5, RDW Coeff of Romario 11.9, Plt Count 183, MPV 8.7, Immature Gran % (Auto) 0.200, Neut % (Auto) 58.1, Lymph % (Auto) 30.7, Titus % (Auto) 9.5, Eos % (Auto) 1.0, Baso % (Auto) 0.5, Absolute Neuts (auto) 3.7, Absolute Lymphs (auto) 1.94, Nucleated RBC % 0, PT 12.0, INR 0.9, APTT 25.6, Sodium 139, Potassium 4.1, Chloride 107, Carbon Dioxide 28.0, Anion Gap 4 L, BUN 23 H, Creatinine 1.15 H, Est GFR (MDRD) Af Amer 61, Est GFR (MDRD) Non-Af 50 L, BUN/Creatinine Ratio 20.0, Glucose 97, Calcium 8.8, Troponin I High Sens 6 09/10/23 12:54: POC Glucose [address] 09/10/23 12:41 IMPRESSION: Chronic involutional changes of the brain. N.B. : The above Results were Read Back by Sae Crawford MD to Dr Les DO, and understanding confirmed on 09/10/2023 13:04:07 (ET). Electronically Signed: Sae Crawford MD at 13:05 EST , ADDENDUM: 09/10/23 1312 IMPRESSION: Chronic involutional changes of the brain. N.B. : The above Results were Read Back by Sae Crawford MD to Dr Les DO, and understanding confirmed on 09/10/2023 13:04:07 (ET). Electronically Signed: Sae Crawford MD at 13:05 EST , Head/Neck CTA 09/10/23 12:42 IMPRESSION: No significant atherosclerotic disease is seen. Heterogeneous enlargement of the isthmus and left lobe of the thyroid. The right lobe of the thyroid is not visualized and most likely has been resected. N.B. : The above Results were Read Back by Sae Crawford MD to Dahlia Astorga and understanding confirmed on 09/10/2023 13:09:26 (ET). Electronically Signed: Sae Crawford MD at 13:11 EST , ADDENDUM: 09/10/23 1318 IMPRESSION: No significant atherosclerotic disease is seen. Heterogeneous enlargement of the isthmus and left lobe of the thyroid. The right lobe of the thyroid is not visualized and most likely has been resected. N.B. : The above Results were Read Back by Sae Crawford MD to Dahlia Astorga and understanding confirmed on 09/10/2023 13:09:26 (ET). Electronically Signed: Sae Crawford MD at 13:11 EST , Chest X-Ray 09/10/23 13:15 IMPRESSION: No acute abnormality is seen. Electronically Signed: Sae Crawford MD at 13:29 EST , Assessment & Plan Assessment/Plan (1) Acute CVA (cerebrovascular accident): PLAN: Plan 1. CVA rule out ? We will obtain an MRI and an echo in the morning ? PT/OT for evaluation ? Continue with aspirin and Lipitor 2. HTN/HLD ? Blood pressures are stable ? We will monitor and make adjustments as necessary ? Continue with atenolol and Lipitor 3. Anxiety/depression/chronic pain ? Stable ? Continue with her home medications DVT: Ambulation 75 minutes was spent on direct patient care, including documentation as well as chart review and collaboration with colleagues Charges/Coding Visit Charges Inpatient E&M: 63828 Init Hosp L3
--- NOTE | 2023-09-10 15:43 | MRI_ITS ---
STUDY: MRI BRAIN WITHOUT CONTRAST REASON FOR EXAM: Female, 63 years old. CVA TECHNIQUE: Standardized multiplanar fat and water weighted pulse sequences were obtained. COMPARISON: CT FINDINGS: Normal size of the ventricles and extra-axial spaces for the patient''s age. There are a limited number of small white matter hyperintensities, distributed throughout the deep white matter tracts of the cerebral hemispheres, consistent with mild chronic white matter ischemic changes. Normal bilateral basal ganglia. Normal thalami. There is no extra-axial fluid accumulation. Normal flow voids within the major intracranial circulation suggesting patency by spin echo criteria. Normal sella turcica, pituitary gland, infundibular stalk, optic chiasm and hypothalamus. Normal tectal plate and pineal gland. Normal midbrain, farzaneh and medulla. Normal cerebellum. Normal basal cisterns. Normal bilateral temporal bones. Normal bilateral internal auditory canals. No demonstrated orbital abnormality, within the constraints of a routine brain study. Normal visualized paranasal sinuses. Normal calvarium and skull base. Normal visualized soft tissue structures. Normal visualized upper cervical spine. MRI/Brain without Contrast IMPRESSION: Involutional changes of the brain, as described above. Electronically Signed: Twin Hightower MD at 20:07 EST ,
--- NOTE | 2023-09-10 15:43 | ECHOCS_ITS ---
Reason For Study: TIA/CVA Procedure This was a 2D Doppler, Color Flow transthoracic echocardiogram. The study was technically difficult. Contrast injection was performed. Exam performed portable in patient room. Left Ventricle Normal LV size. The estimated ejection fraction is 60 %. No evidence for diastolic dysfunction. No regional wall motion abnormalities noted. Right Ventricle Normal RV size. Normal systolic function. Atria Normal left atrium. Normal right atrium. No doppler evidence for ASD. Bubble contrast study negative for right to left interatrial shunt. Mitral Valve There is no mitral valve stenosis. No mitral valve insufficiency. Tricuspid Valve There is no tricuspid stenosis. Unable to estimate RV systolic pressure due to inadequate jet, pulmonary artery pressure probably normal. Aortic Valve Trisinus/trileaflet aortic valve. There is no aortic stenosis. No aortic valve insufficiency. Pulmonic Valve There is no pulmonic valvular stenosis. No pulmonic valve insufficiency. Great Vessels Normal aortic root. Pericardium/Pleural No pericardial effusion. Medication Diluted definity 2ml given slow IV push to enhance endocardial definition. Performed a rapid injection of agitated mix of 9 cc saline and 1cc air to assess for atrial septal defect. MMode/2D Measurements & Calculations LVIDd: 4.8 cm IVSd: 0.76 cm Ao root diam: 3.0 cm LVIDs: 3.2 cm LVPWd: 1.0 cm LA dimension: 4.7 cm RVDd: 3.3 cm FS: 33.1 % LAV(MOD-bp): 54.5 ml LVAd ap4: 31.5 cm2 SV(MOD-sp4): 59.6 ml LAV(MOD-bp) Indexed: 26.3 ml/m2 LVLd ap4: 7.4 cm LAV(MOD-sp2): 60.4 ml EDV(MOD-sp4): 107.3 ml LAV(MOD-sp4): 45.3 ml EDV(sp4-el): 114.4 ml LVAs ap4: 18.3 cm2 LVLs ap4: 6.0 cm ESV(MOD-sp4): 47.6 ml ESV(sp4-el): 47.9 ml EF(MOD-sp4): 55.6 % EF(sp4-el): 58.1 % SV(sp4-el): 66.5 ml LA A4 area: 18.8 cm2 RA A4 area: 13.3 cm2 TAPSE: 1.9 cm Time Measurements MV dec time: 0.21 sec Doppler Measurements & Calculations MV E max robe: 72.1 cm/sec Lat Peak E' Robe: 6.9 cm/sec Med Peak E' Robe: 7.2 cm/sec MV A max robe: 107.7 cm/sec E/E' lat: 10.4 E/E' med: 10.0 MV E/A: 0.67 MV V2 max: 136.7 cm/sec MV P1/2t max robe: 93.9 cm/sec Ao V2 max: 154.2 cm/sec MV max P.5 mmHg MV P1/2t: 84.5 msec Ao max P.5 mmHg MV V2 mean: 67.4 cm/sec Ao V2 mean: 107.8 cm/sec MV mean P.2 mmHg MV dec slope: 325.2 cm/sec2 Ao mean P.3 mmHg MV V2 VTI: 37.1 cm MVA(P1/2t): 2.6 cm2 Ao V2 VTI: 37.7 cm AV (velocity ratio): 0.67 LV V1 max: 105.3 cm/sec PA V2 max: 89.3 cm/sec LV V1 max P.4 mmHg PA V2 mean: 62.9 cm/sec LV V1 mean P.7 mmHg LV V1 mean: 76.4 cm/sec LV V1 VTI: 25.2 cm ECHO/Echo Complete W/ Contrast Interpretation Summary The estimated ejection fraction is 60 %. No evidence for diastolic dysfunction. Ordering Physician: Donald Rolle Performed By: Bradford Skinner RCS
[2023-09-10] MEDS: traMADol 50 MG Tablet 100 MG PO (22:47)
[2023-09-10] MEDS: Atorvastatin Calcium 80 MG Tablet PO (22:48)
[2023-09-10] MEDS: Baclofen 10 MG Tablet PO (22:48)
[2023-09-10] MEDS: busPIRone 5 MG Tablet 10 MG PO (22:48)
[2023-09-11 02:00] VITALS: BP 121/54; PULSE 70; RESP 14; TEMP 36.3; O2SAT 98
[2023-09-11 05:09] LABS: Absolute Neutrophil Count 2.2 X10^3/uL (2.0-7.7); Basophil# 0.03 X10^3/uL; Basophil% 0.8 % (0-1); Eosinophil# 0.06 X10^3/uL; Eosinophils% 1.6 % (0-5); Hematocrit 44.7 % (37-47); Hemoglobin 14.6 g/dL (12.0-15.0); Lymphocyte % 29.3 % (19-41); Mean Corp Hgb Conc 32.7 g/dL (32-36); Mean Corpuscular Hgb 29.2 pg (27.0-32.0); Mean Corpuscular Volume 89.4 fL (81-99); Mean Platelet Vol. 8.9 fl (6.2-12.0); Monocyte# 0.35 X10^3/uL; Monocyte% 9.3 % (0-10); NRBC Flagged by Analyzer 0 % (0-5); Neutrophil # 2.21 X10^3/uL (2.7-7.7); Neutrophil % 58.7 % (47-70); Platelet Count 149 K/mm3 (150-450); RBC Distribution Width SD 39.6 fl (35.1-43.9); White Blood Count 3.8 K/mm3 (4.4-11.0)
[2023-09-11 05:25] VITALS: BP 140/81; PULSE 63; RESP 18; TEMP 36.4; O2SAT 98
[2023-09-11] MEDS: busPIRone 5 MG Tablet 10 MG PO (05:26)
[2023-09-11] MEDS: traMADol 50 MG Tablet 100 MG PO (05:28)
[2023-09-11 05:40] LABS: Anion Gap 4 (5-15); BUN 22 mg/dL (7-18); BUN/Creat Ratio 21.6 RATIO (10-20); Calcium,Total 8.6 mg/dL (8.5-10.1); Chloride 112 mmol/L (98-107); Cholesterol 156 mg/dL (200); Creatinine, Serum 1.02 mg/dL (0.55-1.02); EST Glomerular Filtration Rate 58 mL/min (>60); Est Glom Filt Rate - Afr Amer 70 mL/min (>60); Estimated Creatinine Clearance 45.49 ml/min; Glucose 129 mg/dL (74-106); High Density Lipoprotein 50 mg/dL; Potassium 4.3 mmol/L (3.5-5.1); Sodium Level 143 mmol/L (136-145); Triglycerides 97 mg/dL; Very Low Density Lipoprotein 19 mg/dL (5-40)
[2023-09-11 09:00] VITALS: BP 119/73; PULSE 84; RESP 18; TEMP 36.4; O2SAT 98
[2023-09-11] MEDS: Aspirin 81 MG TAB.CHEW PO (09:02)
[2023-09-11] MEDS: Baclofen 10 MG Tablet PO (09:02)
[2023-09-11 12:22] VITALS: BMI 40.0
[2023-09-11 13:16] VITALS: O2SAT 95
[2023-09-11 15:12] VITALS: BP 135/80; PULSE 74; RESP 18; TEMP 36.6; O2SAT 96
--- NOTE | 2023-09-11 15:12 | DCINST_ITS ---
Discharge Instructions Diet Discharge Diet: No restrictions Activity Discharge Activity: Return to Normal Activity Return to work on:: 09/16/23 Weight Bearing Status: Full weight bearing Follow Up Care Test Results: Test results from this visit will be discussed in further detail at your follow- up appointment, if applicable. Discharge Plan Admission Admit Date/Time: 09/10/23 14:38 Primary Reason for Your Visit: TIA Attending Provider: Myles Carr Primary Care Provider: [facility] Consulting Providers: Donald Rolle Instructions Additional Instructions / Restrictions: You will need to take one 81mg aspirin daily You will need to increase your Atorvastatin 20 mg to two once a day Your muscle relaxants and Lyrica can cause slurred speech and confusion Discharge Orders/Prescriptions Prescriptions: New aspirin 81 mg Tablet,Chewable 81 mg PO BREAKFAST Qty: 0 0RF atorvastatin 40 mg tablet 40 mg PO QHS Qty: 30 0RF Continued cholecalciferol (vitamin D3) [Vitamin D3] 25 mcg (1,000 unit) capsule 25 mcg PO DAILY buspirone 10 mg tablet 10 mg PO BID celecoxib [Celebrex] 100 mg capsule 100 mg PO BID tramadol 50 mg tablet 100 mg PO Q6H PRN (Reason: pain) pregabalin [Lyrica] 150 mg capsule 150 mg PO BID atenolol 50 mg tablet 50 mg PO BID tizanidine 4 mg capsule 4 mg PO Q8H sertraline 100 mg tablet 200 mg PO DAILY baclofen 10 mg tablet 10 mg PO TID Discontinued atorvastatin 20 mg tablet 20 mg PO QHS Referrals / Follow [facility] [[facility] - Within 1 Month Disposition Disposition (needs filled in before D/C Order can be placed): Home, Self Care
--- NOTE | 2023-09-11 15:12 | CASEMGMT ---
Met with patient to complete ANTONY form. ANTONY form explained to patient who voiced understanding and signed form. Original form placed in pt?s chart and copy provided to?patient. Erika Broussard, Discharge Planning Asst
--- NOTE | 2023-09-11 15:18 | PCM.DC.SUM ---
Providers Date of Admission: 09/10/23 Date of Discharge: 09/11/23 Primary Care Physician: [facility] Reason For Visit: CVA, HTN Diagnosis Discharge Diagnosis (1) Acute CVA (cerebrovascular accident): Status: Acute Code(s): I63.9 - Cerebral infarction, unspecified Plan 1. Transient ischemic attack #2 essential hypertension #3 chronic depression #4 hyperlipidemia Medications at Discharge Home Medications atenolol 50 mg tablet 50 mg PO BID 09/10/23 baclofen 10 mg tablet 10 mg PO TID 09/10/23 buspirone 10 mg tablet 10 mg PO BID 09/10/23 celecoxib 100 mg capsule (Celebrex) 100 mg PO BID 09/10/23 cholecalciferol (vitamin D3) 25 mcg (1,000 unit) capsule (Vitamin D3) 25 mcg PO DAILY 09/10/23 pregabalin 150 mg capsule (Lyrica) 150 mg PO BID 09/10/23 sertraline 100 mg tablet 200 mg PO DAILY 09/10/23 tizanidine 4 mg capsule 4 mg PO Q8H 09/10/23 tramadol 50 mg tablet 100 mg PO Q6H PRN pain 09/10/23 aspirin 81 mg chewable tablet 81 mg PO BREAKFAST #0 tabs 09/11/23 atorvastatin 40 mg tablet 40 mg PO QHS #30 tabs 09/11/23 Hospital Course Operations None Procedures 2-D Echocardiogram Summary of Care Provided Minutes Spent on Discharge: 30 Hospital Course: This 63-year-old white female was seen in the emergency room at [facility] with complaints of an episode of slurred speech and double vision at home, work-up in the emergency room included a CT of the head and a CT of the head and neck which were unremarkable. The remainder of the work-up in the emergency room was also unremarkable. Patient was placed in observation status on PCU, she underwent an echocardiogram which was unremarkable, she had an MRI of the brain which showed no evidence of acute stroke, she was seen in consultation by PT and OT. This examiner had conversations with the patient concerning her episode, I could not be totally sure that she did not have a TIA although the patient was on multiple medications for chronic back pain such as 2 different muscle relaxers and Lyrica. I told her it would be a good idea to try to de-escalate her medicine at home and to at least get rid of one of her muscle relaxants such as baclofen. Patient had a lipid profile drawn which showed a slightly elevated LDL when taken into consideration she may have had a TIA. Patient was instructed to increase her Lipitor at home and follow-up with the [facility]. On 09/11/2023, patient was seen and examined: On examination she appeared in good health and spirits, she does not appear to be in any distress. Vital signs as documented. Skin warm and dry and without overt rashes. Neck without JVD, thyroid appears normal, trachea is midline, neck is supple. Lungs clear, normal air movement was noted. Heart exam notable for regular rhythm, normal sounds and absence of murmurs, rubs or gallops. Abdomen unremarkable and without evidence of organomegaly, masses, or abdominal aortic enlargement, bowel sounds are present in all 4 quadrants, no abdominal tenderness was noted. Extremities nonedematous, no cyanosis was noted, no clubbing was noted. Neuro: Cranial nerves II through XII are grossly intact, no focal motor deficits were noted, sensation to light touch and pinprick is intact, motor exam 5/5 throughout. Psych: Patient is alert and oriented x3, she does not appear anxious or depressed, she does not appear agitated. Patient was discharged home in stable condition on 09/11/2023 Weight / BMI Weight Weight: 102.6 kg Body Mass Index (BMI) 40.0 ABG / Lab / Microbiology Data 09/11/23 04:47 09/11/23 04:47 Laboratory: Laboratory Results - last 24 hr 09/11/23 04:47: WBC 3.8 L, RBC 5.00, Hgb 14.6, Hct 44.7, MCV 89.4, MCH 29.2, MCHC 32.7, RDW Std Deviation 39.6, RDW Coeff of Romario 12.0, Plt Count 149 L, MPV 8.9, Immature Gran % (Auto) 0.300, Neut % (Auto) 58.7, Lymph % (Auto) 29.3, [place] % (Auto) 9.3, Eos % (Auto) 1.6, Baso % (Auto) 0.8, Absolute Neuts (auto) 2.2, Absolute Lymphs (auto) 1.10, Nucleated RBC % 0, Sodium 143, Potassium 4.3, Chloride 112 H, Carbon Dioxide 27.0, Anion Gap 4 L, BUN 22 H, Creatinine 1.02, Estim Creat Clear Calc 45.49, Est GFR (MDRD) Af Amer 70, Est GFR (MDRD) Non-Af 58 L, BUN/Creatinine Ratio 21.6 H, Glucose 129 H, Calcium 8.6, Triglycerides 97, Cholesterol 156, LDL Cholesterol 87, VLDL Cholesterol 19, HDL Cholesterol 50 Radiography Diagnostic Testing: Radiology Impression Brain MRI 09/10/23 15:43 IMPRESSION: Involutional changes of the brain, as described above. Electronically Signed: Twin Hightower MD at 20:07 EST Reading Location ID and State: [id number] [place] [address] , Service support , Echocardiogram 09/10/23 15:43 Interpretation Summary The estimated ejection fraction is 60 %. No evidence for diastolic dysfunction. Ordering Physician: Donald Rolle Performed By: Bradford Skinner RCS D/C Instructions Discharge Diet: No restrictions Return to work on: 09/16/23 Weight Bearing Status: Full weight bearing Meaningful Use Info Meaningful Use Diagnoses (Choose all that apply): None applicable Discharge Plan Admission Admit Date/Time: 09/10/23 14:38 Primary Reason for Your Visit: TIA Attending Provider: Myles Carr Primary Care Provider: [facility],[place] Consulting Providers: Donald Rolle Instructions Additional Instructions / Restrictions: You will need to take one 81mg aspirin daily You will need to increase your Atorvastatin 20 mg to two once a day Your muscle relaxants and Lyrica can cause slurred speech and confusion Discharge Orders/Prescriptions Prescriptions: New aspirin 81 mg Tablet,Chewable 81 mg PO BREAKFAST Qty: 0 0RF atorvastatin 40 mg tablet 40 mg PO QHS Qty: 30 0RF Continued cholecalciferol (vitamin D3) [Vitamin D3] 25 mcg (1,000 unit) capsule 25 mcg PO DAILY buspirone 10 mg tablet 10 mg PO BID celecoxib [Celebrex] 100 mg capsule 100 mg PO BID tramadol 50 mg tablet 100 mg PO Q6H PRN (Reason: pain) pregabalin [Lyrica] 150 mg capsule 150 mg PO BID atenolol 50 mg tablet 50 mg PO BID tizanidine 4 mg capsule 4 mg PO Q8H sertraline 100 mg tablet 200 mg PO DAILY baclofen 10 mg tablet 10 mg PO TID Discontinued atorvastatin 20 mg tablet 20 mg PO QHS [facility] - Within 1 Month Disposition Disposition (needs filled in before D/C Order can be placed): Home, Self Care Charges/Coding Visit Charges Inpatient E&M: 00291 Disch Hosp
--- NOTE | 2023-09-11 15:44 | CASEMGMT ---
Patient has order for discharge. RN CM in to discuss discharge need with patient. Patient denies needs at discharge. Patient had no further questions or concerns at this time.
== END 2023-09-11 17:55 | disposition home or self-care (01) ==
LOC: ED 14:19 → PCU 14:40
PROVIDERS: Admitting Provider Family Medicine; Emergency Provider Emergency Medicine; Visit Provider Internal Medicine
DX: G45.9 Transient cerebral ischemic attack, unspecified (principal); R47.81 Slurred speech; G89.29 Other chronic pain; H53.8 Other visual disturbances; H53.2 Diplopia; E78.00 Pure hypercholesterolemia, unspecified; I10 Essential (primary) hypertension; R20.0 Anesthesia of skin; Z79.899 Other long term (current) drug therapy; F32.A Depression, unspecified
CPT/HCPCS: 36415; 70450; 70496; 70498; 70551; 71045; 80048; 80061; 82962; 84484; 85025; 85610; 85730; 93005; 93306; 94762; 97802; 99221; 99285; Q9957; Q9967; A4216; C8929; G0378

== ENCOUNTER 2023-11-14 12:00 | Outpatient (RCR) | payer OTHER, SELFPAY ==
--- NOTE | 2023-10-23 11:11 | HP.PTEVAL_ITS ---
Patient's Visit Information Visit Information Visit Information: ARRON SMITH is a 63 year old F referred to Physical Therapy by BRE BRYANT with a diagnosis of R hip and back pain. Date of Evaluation: 10/23/23 Physical Therapist: Nhan Helms, DPT, OCS, CSCS Visit Plan Frequency: 2x /Week Duration: 2 Months Plan: 2x/week for 4-7 weeks for aquatic therapy to start for quad stretch B hip and knee and core strength calorie burn and attempt to get I for membership or HEP Subjective Subjective: [facility] has severe OA and worn down and pinched nerve from OA oin LB. Sees chiropractor which helps. R hip is killer pain and has been there a long time. Pain is in the groin and into posterior hip. Constant except sitting, hurts immediately to walk and has for > 1 yr. Insidous onset. Has been coming on for years. Uses cane due to hip pain which helps her walk better. 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 Went t another job [employer] but filed for SSI. 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 Not overly active. Lives in house with steps with her roommate. Has steps with railing and can get up and down but tries to avoid. Basic ADLs are getting done: Hobbies: watches sports basketball, softball. Has not played in a while. reads and watches crime shows. No regualr exercises, sometimes shooting baskets. Pain R hip: Pain Intensity (Out of 10): 7 Pain Intensity Range: 0, 7 and 9 Comment: 0 sitting, walking 7/10 Objective Objective: Walks with R antalgia and 6/10 pain immediately upon arising from chair. I ambulation and safe. Trasnfer bed and chair I with R groin pain. Steps very antalgic on R and requires rail. + R hip scouring, + MADDISON, + FADDIR on R AROM R hip limited and painful at all end ranges, 0 ext, 90 flexion, 0 ir and 40 er. L hip is 105 flexion 5 ext, 45 er adn 8 ir. reflexes 2/3 patella and achilles sensation LE is WNL to gross light touch B LE strength is 3 in hips, 4- in knees, ankles 4/5, pain with R knee Balance/Special Test Scores Lower Extremity Functional Score: 27 Goals Goal 1:: I appropriate water or HEP to limit future problems Goal 2:: Pain in hip 3/10 at worst adn 50% better Goal Time Frame: 6-8 Weeks Goal 3:: trasnfer without evidence of pain and walk without antalgia after first 10 steps Goal Time Frame: 6-8 Weeks Goal 4:: LEFS score 50 Goal Time Frame: 6-8 Weeks Rehabilitation Potential Physical Therapy Diagnosis: pain and limited ROM and strength in R hip and core casuing pain with her hip degeneration. Rehabilitation Potential: Questionable Anticipated Interventions Patient/Client Instruction: Educate patient on: Condition and Plan of Care For the Purpose of:: To decrease pain, To increase ROM, To improve nutrient delivery to tissue and To improve muscle performance and motor function Therapeutic Exercise to Include: Strength training, Postural training, Flexibilty training, In an aquatic setting, Passive ROM and Active ROM For the Purpose of:: To decrease pain, To increase ROM, To improve nutrient delivery to tissue, To increase tolerance to activity/condition/position, To improve ability of physical actions for home/community/work/leisure and To improve gait and locomotor functions Manual Therapy Techniques to Include: Mobilization and Passive ROM For the Purpose of:: To decrease pain and To increase ROM TENS: Yes Thermo therapy (hot pack): Yes For the Purpose of:: To decrease pain and To increase ROM Text: Thank you for the opportunity to evaluate your patient. For Medicare and Medicare HMO plans, please review the plan of care and approve it. It will need to be FAXED BACK to us at [phone] for Medicare purposes. For Medicare only, by signing this I certify the plan of care. Please let me know if there are questions or concerns regarding this plan of care. Physician Signature: Date:
--- NOTE | 2024-01-24 14:22 | HP.PT.NRP ---
Patient Information Patient Information: ARRON SMITH was seen in my office for initial evaluation on 10/23/23. The following Plan of Care was established for this patient: POC Established Initial Frequency: 2x /Week Initial Duration: 2 Months Anticipated Interventions Patient/Client Instruction: Educate patient on: Condition and Plan of Care For the Purpose of:: To decrease pain, To increase ROM, To improve nutrient delivery to tissue and To improve muscle performance and motor function Therapeutic Exercise to Include: Strength training, Postural training, Flexibilty training, In an aquatic setting, Passive ROM and Active ROM For the Purpose of:: To decrease pain, To increase ROM, To improve nutrient delivery to tissue, To increase tolerance to activity/condition/position, To improve ability of physical actions for home/community/work/leisure and To improve gait and locomotor functions Manual Therapy Techniques to Include: Mobilization and Passive ROM For the Purpose of:: To decrease pain and To increase ROM TENS: Yes Thermo therapy (hot pack): Yes For the Purpose of:: To decrease pain and To increase ROM Last Seen Last Seen: This patient was last seen in our office 11/14/23. Pertinent comments regarding their Physical therapy will appear below: Pt seen 4 visits of POC and ended up cancelling them as she did not thinks she was benefitting after 3 visits in water. I will discontinue at her request. At this point I will be discontinuing this patient from physical therapy. I would be happy to see this patient again in the future if found appropriate by the physician. Thank you! Nhan Helms, DPT, OCS, CSCS Balance/Gait/Functional tests Balance/Special Test Scores Lower Extremity Functional Score: 27
== END 2023-11-14 19:00 | disposition home or self-care (01) ==
LOC: PT 12:00
DX: M25.559 Pain in unspecified hip (principal); M54.9 Dorsalgia, unspecified
CPT/HCPCS: 97113; 97161

== ENCOUNTER 2024-03-08 18:01 | Observation (INO) | payer OTHER, SELFPAY ==
[2024-03-08 18:02] VITALS: BP 130/92; PULSE 79; RESP 18; TEMP 36.4; O2SAT 100; BMI 41.2
[2024-03-08 18:23] VITALS: BMI 41.2
--- NOTE | 2024-03-08 18:26 | CT_ITS ---
EXAM: CT ANGIOGRAPHY HEAD AND NECK WITH INTRAVENOUS CONTRAST CLINICAL INDICATION: TIA TECHNIQUE: [place]/head and neck CT angiography protocol performed with intravenous contrast. This CT exam was performed using one or more of the following dose reduction techniques: automated exposure control, adjustment of the mA and/or kV according to patient size, and/or use of iterative reconstruction technique. MIP reconstructed images were created and reviewed. CONTRAST: IV 100mL [id number]-370 RADIATION DOSE: CTDIvol = 28.16 mGy, DLP = 1433.80 mGy-cm COMPARISON: No relevant prior studies available. FINDINGS: HEAD: RIGHT ANTERIOR CEREBRAL ARTERY: Unremarkable. No occlusion or significant stenosis. Anterior communicating artery is present. No aneurysm. RIGHT MIDDLE CEREBRAL ARTERY: Unremarkable. No occlusion or significant stenosis. No aneurysm. RIGHT POSTERIOR CEREBRAL ARTERY: Unremarkable. No occlusion or significant stenosis. No aneurysm. RIGHT INTRACRANIAL INTERNAL CAROTID ARTERY: Unremarkable. No significant stenosis. No dissection or occlusion. RIGHT INTRACRANIAL VERTEBRAL ARTERY: Unremarkable. No significant stenosis. No dissection or occlusion. LEFT ANTERIOR CEREBRAL ARTERY: Unremarkable. No occlusion or significant stenosis. No aneurysm. LEFT MIDDLE CEREBRAL ARTERY: Unremarkable. No occlusion or significant stenosis. No aneurysm. LEFT POSTERIOR CEREBRAL ARTERY: Unremarkable. No occlusion or significant stenosis. No aneurysm. LEFT INTRACRANIAL INTERNAL CAROTID ARTERY: Unremarkable. No significant stenosis. No dissection or occlusion. LEFT INTRACRANIAL VERTEBRAL ARTERY: Unremarkable. No significant stenosis. No dissection or occlusion. BASILAR ARTERY: Unremarkable. No occlusion or significant stenosis. No aneurysm. OTHER VASCULATURE: There is calcified plaque formation of the right cavernous carotid artery, with a mild stenosis (less than 50%). ALL ABOVE CRITERIA BY NASCET. There is calcified plaque formation of the left cavernous carotid artery, with a mild stenosis (less than 50%). ALL ABOVE CRITERIA BY NASCET. No vascular malformation. NECK: RIGHT COMMON CAROTID ARTERY: Unremarkable. No significant stenosis. No dissection or occlusion. RIGHT EXTRACRANIAL INTERNAL CAROTID ARTERY: There is mild atherosclerotic plaque formation of the origin of the right internal carotid artery with less than 50% cross sectional diameter stenosis. ALL ABOVE CRITERIA BY NASCET. No dissection or occlusion. RIGHT EXTERNAL CAROTID ARTERY: Unremarkable. No occlusion. RIGHT EXTRACRANIAL VERTEBRAL ARTERY: Unremarkable. No significant stenosis. No dissection or occlusion. LEFT COMMON CAROTID ARTERY: Unremarkable. No significant stenosis. No dissection or occlusion. LEFT EXTRACRANIAL INTERNAL CAROTID ARTERY: There is mild atherosclerotic plaque formation of the origin of the left internal carotid artery with less than 50% cross sectional diameter stenosis. ALL ABOVE CRITERIA BY NASCET. No dissection or occlusion. LEFT EXTERNAL CAROTID ARTERY: Unremarkable. No occlusion. LEFT EXTRACRANIAL VERTEBRAL ARTERY: Unremarkable. No significant stenosis. No dissection or occlusion. THYROID: Diffusely heterogeneous cystic left thyroid lobe. Recommend dedicated ultrasound of thyroid gland to evaluate. BRACHIOCEPHALIC AND SUBCLAVIAN ARTERIES: Unremarkable as visualized. No occlusion or significant stenosis. LUNG APICES: Unremarkable as visualized. HEAD and NECK: BONES/JOINTS: Unremarkable. No discrete lytic or blastic abnormalities. SOFT TISSUES: Unremarkable. OTHER FINDINGS: Post-processing of the angiographic images was performed, with axial imaging and 3D reconstruction. MIPS images were obtained. CAROTID STENOSIS REFERENCE USING NASCET CRITERIA: % ICA stenosis = (1 - narrowest ICA diameter/diameter of distal cervical ICA) x 100. Mild - <50% stenosis. Moderate - 50-69% stenosis. Severe - 70-94% stenosis. Near occlusion - 95-99% stenosis. Occluded - 100% stenosis. CT/CTA Head AND Neck W/ Contrast IMPRESSION: 1. Diffusely heterogeneous cystic left thyroid lobe. Recommend dedicated ultrasound of thyroid gland to evaluate. 2. There is mild atherosclerotic plaque formation of the origin of the right internal carotid artery with less than 50% cross sectional diameter stenosis. ALL ABOVE CRITERIA BY NASCET. 3. There is mild atherosclerotic plaque formation of the origin of the left internal carotid artery with less than 50% cross sectional diameter stenosis. ALL ABOVE CRITERIA BY NASCET. 4. There is calcified plaque formation of the right cavernous carotid artery, with a mild stenosis (less than 50%). ALL ABOVE CRITERIA BY NASCET. 5. There is calcified plaque formation of the left cavernous carotid artery, with a mild stenosis (less than 50%). ALL ABOVE CRITERIA BY NASCET. Electronically Signed: Antoine Najera MD at 20:13 EDT ,
--- NOTE | 2024-03-08 18:26 | EKG12_ITS ---
Test Reason : DYSRHYTHMIA Blood Pressure : / mmHG Vent. Rate : 068 BPM Atrial Rate : 068 BPM P-R Int : 174 ms QRS Dur : 080 ms QT Int : 394 ms P-R-T Axes : 038 033 058 degrees QTc Int : 418 ms Normal sinus rhythm Normal ECG Confirmed by Jose Vitale ([id number]), mapping editor CHAD RUBIO ([id number]) on 03/09/2024 10:01:40 AM Referred By: Confirmed By:Jose Vitale
--- NOTE | 2024-03-08 18:28 | EX.ED.DYSGE1 ---
HPI History of Present Illness Chief Complaint: Neuro S/Sx Detail of Chief Complaint: TIA Informant: patient Narrative Narrative: Patient presents due to concern for recurrent TIAs. Patient was initially seen here and evaluated in September [address] head was unremarkable. Her dose of atorvastatin was increased at that time. Patient also takes baby aspirin daily. Patient states 4 weeks ago she had another episode where she developed double vision where objects appeared [id number] for approximately a minute and then resolved. Today she had a similar episode while she was at work about 3 hours ago. Again, objects were ghpc-[id number] double vision for about a minute or so and resolved. Friend thought she may have had some stuttering speech today as well. Symptoms seem to have resolved at this time. Patient does follow with a neurologist in [place]. She states that she saw him last week and plan was for her to wear a Holter monitor. She has not yet received this. [facility] Medical History Anxiety Arthritis Chronic back pain Depression Family history of cholecystectomy Hyperlipidemia Hypertension Kidney disease Home Medications atenolol 50 mg tablet 50 mg PO BID 09/10/23 [History Last Taken Unknown] baclofen 10 mg tablet 10 mg PO TID 09/10/23 [History Last Taken Unknown] buspirone 10 mg tablet 10 mg PO BID 09/10/23 [History Last Taken Unknown] celecoxib 100 mg capsule (Celebrex) 100 mg PO BID 09/10/23 [History Last Taken Unknown] cholecalciferol (vitamin D3) 25 mcg (1,000 unit) capsule (Vitamin D3) 25 mcg PO DAILY 09/10/23 [History Last Taken Unknown] pregabalin 150 mg capsule (Lyrica) 150 mg PO BID 09/10/23 [History Last Taken Unknown] sertraline 100 mg tablet 200 mg PO DAILY 09/10/23 [History Last Taken Unknown] tizanidine 4 mg capsule 4 mg PO Q8H 09/10/23 [History Last Taken Unknown] tramadol 50 mg tablet 100 mg PO Q6H PRN pain 09/10/23 [History Last Taken Unknown] aspirin 81 mg chewable tablet 81 mg PO BREAKFAST #0 tabs 09/11/23 [Rx Last Taken Unknown] atorvastatin 40 mg tablet 40 mg PO QHS #30 tabs 09/11/23 [Rx Last Taken Unknown] Allergy/AdvReac Type Severity Reaction Status Date / Time No Known Allergies Allergy Verified 03/08/24 18:03 Family History Other Cancer Heart disease Surgical History H/O partial thyroidectomy H/O: hysterectomy Social History household members: significant other Smoking Status: Never smoker ROS ROS ED Constitutional Constitutional ED: Denies chills or fever(s) Eyes Eyes: Reports diplopia; Denies discharge from eye(s) ENT ENT ED: Denies discharge from eye(s), rhinorrhea or sore throat Cardiovascular Cardiovascular: Denies chest pain or palpitations Respiratory/Chest Respiratory/Chest: Denies cough or dyspnea Gastrointestinal Gastrointestinal: Denies abdominal pain, nausea or vomiting Genitourinary Genitourinary ED: Denies dysuria Musculoskeletal Musculoskeletal: Denies back pain or extremity pain Integumentary Denies Abrasions or rash Neurologic Neurologic: Reports other Details: Feels slightly lightheaded and dizzy today. ; Denies headache(s) or weakness Psychiatric Psychiatric: Denies anxiety or depression Allergic/Immunologic Allergic/Immunologic ED: Denies lip swelling or urticaria EXAM Physical Exam Const Vital Signs: 03/08/24 18:02 03/08/24 20:02 Temperature 97.6 F L Temperature Source Temporal Pulse Rate 79 60 Respiratory Rate 18 15 Blood Pressure 130/92 H 111/60 Blood Pressure Mean 104 77 Pulse Ox 100 96 Oxygen Delivery Method Room Air Positive well nourished and well developed General Appearance ED: well developed HEENT Reports moist mucous membranes Eyes EOMs intact bilaterally Chest Wall inspection of chest normal and palpation of chest normal Resp normal respiratory effort and clear to auscultation bilaterally Cardio regular rate GI non-tender Palpation: soft Extremity normal to inspection Neuro oriented x3 and no sensory deficits noted Neuro Narrative: NIH = 0 at the time of my exam (18:25) Motor Exam: strength 5/5 throughout Psych mental status grossly normal Skin no rashes or lesions noted MDM MDM MDM Narrative Medical decision making narrative: IV line will be established. Labwork obtained to evaluate for leukocytosis, anemia, and electrolyte derangement. Patient placed on bus monitor. EKG obtained to evaluate for cardiac arrhythmia/ischemia. CT of the head along with CTA of the head and neck will be obtained to evaluate for potential TIA/stroke. History & Record Review Discussion w/independent historian: Patient Lab Data Attestation: I reviewed the patient's lab results. Labs: Laboratory Results - last 24 hr 03/08/24 18:15 WBC 5.4 RBC 4.95 Hgb 14.7 Hct 43.9 MCV 88.7 MCH 29.7 MCHC 33.5 RDW Std Deviation 42.2 RDW Coeff of Romario 12.9 Plt Count 156 MPV 9.1 Immature Gran % (Auto) 0.200 Neut % (Auto) 58.3 Lymph % (Auto) 30.2 [place] % (Auto) 8.7 Eos % (Auto) 1.7 Baso % (Auto) 0.9 Absolute Neuts (auto) 3.2 Absolute Lymphs (auto) 1.63 Nucleated RBC % 0 Sodium 139 Potassium 4.7 Chloride 109 H Carbon Dioxide 25.0 Anion Gap 5 BUN 20 H Creatinine 1.36 H Estim Creat Clear Calc 47.04 Est GFR (MDRD) Af Amer 50 L Est GFR (MDRD) Non-Af 41 L BUN/Creatinine Ratio 14.7 Glucose 126 H Calcium 8.7 Radiography Chest X-Ray - ED: 1 View, Read by ED Physician, Chronic Changes and No Infiltrates Diagnostic Testing: Clinical Impression(s) from Imaging Studies Head/Neck CTA 03/08/24 18:26 IMPRESSION: 1. Diffusely heterogeneous cystic left thyroid lobe. Recommend dedicated ultrasound of thyroid gland to evaluate. 2. There is mild atherosclerotic plaque formation of the origin of the right internal carotid artery with less than 50% cross sectional diameter stenosis. ALL ABOVE CRITERIA BY NASCET. 3. There is mild atherosclerotic plaque formation of the origin of the left internal carotid artery with less than 50% cross sectional diameter stenosis. ALL ABOVE CRITERIA BY NASCET. 4. There is calcified plaque formation of the right cavernous carotid artery, with a mild stenosis (less than 50%). ALL ABOVE CRITERIA BY NASCET. 5. There is calcified plaque formation of the left cavernous carotid artery, with a mild stenosis (less than 50%). ALL ABOVE CRITERIA BY NASCET. Electronically Signed: Antoine Najera MD at 20:13 EDT , Chest X-Ray 03/08/24 18:44 IMPRESSION: No radiographic evidence of acute cardiopulmonary disease. Electronically Signed: Antoine Najera MD at 19:10 EDT , EKG Initial EKG: Attestation: I personally reviewed and interpreted this EKG as follows: Interpretation: Sinus Rhythm (Sinus at 68 with no acute ischemia.) Treatment and Re-Evaluation :: CBC was normal white count 5.4 with a hemoglobin of 14.7. Normal differential. Chemistry studies reveal a BUN of 20 and creatinine 1.36. Glucose is 126. EKG is sinus rhythm with no evidence of ischemia. Portable chest x-ray per my interpretation reveals chronic changes with no focal infiltrate. Radiology interpretation reviewed and agrees. A CTA of the head and neck is read with no evidence of acute disease. I do not see a specific comment on the noncontrast portion of the CT and did ask states he did contact the radiologist for this. I have spoken with the hospitalist who will see the patient for admission. While patient was in the emergency room she did wring out to the nurses station stating that she had double vision again. At the time and he went to get back to the room to check her she states that it had resolved. Friend at bedside did not note any speech difficulties with this episode. Discharge Plan Triage Chief Complaint: Neuro S/Sx ED Provider: Lina Sears Dx/Rx/DC Orders Clinical Impression: Brain TIA Prescriptions: No Action cholecalciferol (vitamin D3) [Vitamin D3] 25 mcg (1,000 unit) capsule 25 mcg PO DAILY buspirone 10 mg tablet 10 mg PO BID celecoxib [Celebrex] 100 mg capsule 100 mg PO BID tramadol 50 mg tablet 100 mg PO Q6H PRN (Reason: pain) pregabalin [Lyrica] 150 mg capsule 150 mg PO BID atenolol 50 mg tablet 50 mg PO BID tizanidine 4 mg capsule 4 mg PO Q8H sertraline 100 mg tablet 200 mg PO DAILY baclofen 10 mg tablet 10 mg PO TID aspirin 81 mg Tablet,Chewable 81 mg PO BREAKFAST Qty: 0 0RF atorvastatin 40 mg tablet 40 mg PO QHS Qty: 30 0RF [facility] [Primary [facility] Provider[facility] - Disposition Disposition: Acute Care Hospital [facility]
[2024-03-08 18:41] LABS: Absolute Lymphocyte Count 1.63 X10^3/uL (0.83-4.51); Absolute Neutrophil Count 3.2 X10^3/uL (2.0-7.7); Basophil# 0.05 X10^3/uL; Basophil% 0.9 % (0-1); Eosinophil# 0.09 X10^3/uL; Eosinophils% 1.7 % (0-5); Hematocrit 43.9 % (37-47); Hemoglobin 14.7 g/dL (12.0-15.0); Lymphocyte # 1.63 X10^3/ul (0.83-4.51); Lymphocyte % 30.2 % (19-41); Mean Corp Hgb Conc 33.5 g/dL (32-36); Mean Corpuscular Hgb 29.7 pg (27.0-32.0); Mean Corpuscular Volume 88.7 fL (81-99); Mean Platelet Vol. 9.1 fl (6.2-12.0); Monocyte# 0.47 X10^3/uL; Monocyte% 8.7 % (0-10); NRBC Flagged by Analyzer 0 % (0-5); Neutrophil # 3.15 X10^3/uL (2.7-7.7); Neutrophil % 58.3 % (47-70); Platelet Count 156 K/mm3 (150-450); RBC Distribution Width CV 12.9 % (11.6-14.6); RBC Distribution Width SD 42.2 fl (35.1-43.9); Red Blood Count 4.95 M/mm3 (4.2-5.4); White Blood Count 5.4 K/mm3 (4.4-11.0)
--- NOTE | 2024-03-08 18:44 | RAD_ITS ---
EXAM: XR CHEST, 1 VIEW CLINICAL INDICATION: sob TECHNIQUE: Frontal view of the chest. COMPARISON: No relevant prior studies available. FINDINGS: LUNGS AND PLEURAL SPACES: Unremarkable. No consolidation or edema. No pneumothorax. No effusion. HEART: Unremarkable. Cardiac silhouette not enlarged. MEDIASTINUM: Central airways and mediastinal contour are unremarkable. BONES/JOINTS: Unremarkable. No acute fracture. SOFT TISSUES: Unremarkable. RAD/Chest 1 View (Portable) IMPRESSION: No radiographic evidence of acute cardiopulmonary disease. Electronically Signed: Antoine Najera MD at 19:10 EDT ,
[2024-03-08 19:02] LABS: Anion Gap 5 (5-15); BUN 20 mg/dL (7-18); BUN/Creat Ratio 14.7 RATIO (10-20); Calcium,Total 8.7 mg/dL (8.5-10.1); Chloride 109 mmol/L (98-107); Creatinine, Serum 1.36 mg/dL (0.55-1.02); EST Glomerular Filtration Rate 41 mL/min (>60); Est Glom Filt Rate - Afr Amer 50 mL/min (>60); Estimated Creatinine Clearance 47.04 ml/min; Glucose 126 mg/dL (74-106); Potassium 4.7 mmol/L (3.5-5.1); Sodium Level 139 mmol/L (136-145)
[2024-03-08 20:02] VITALS: BP 111/60; PULSE 60; RESP 15; O2SAT 96
--- NOTE | 2024-03-08 20:20 | ED.RN ---
Pt calls out stating she is having double vision again. Dr Sears notified.
--- NOTE | 2024-03-08 20:58 | PCM.HP.STD ---
HPI - General General Date of Admission: 03/08/24 Date of Service: 03/08/24 Chief Complaint: Vision changes, altered speech, transient. HPI Narrative The patient is a 63 y/o F w/ PMHx: Known thyroid nodules, CKD stage III unclear subtype, Morbid obesity, Chronic back pain< Anxiety and Depression, HTN, HLD, Hx recurrent TIA who presents to the [facility] ED on 03/08/24 with history of episode 4 weeks ago of double vision lasting a minute with resolution following with similar episode on day of presentation approximately 3 hours prior to ED arrival while she was at work again noting double vision seeing images [id number] for approximately 1 to 2 minutes with complete resolution however a friend who was present felt she might have had also some speech alterations with potentially stuttering with resolution quickly prompting ED evaluation. She has been following with a neurologist in [place] and relates that she did see them approximately week prior with planned upcoming Holter monitor evaluation to be cautious. In the ED NIH stroke evaluation 0 upon arrival. Workup in the ED included T97.6, heart rate 79, BP 130/92, respiratory rate 18, 100% on room air, CBC with WC 5.4, hemoglobin 14.9, platelet 156 without marked shift, BMP with chloride 109, BUN/creatinine 20/1.36, GFR 41, glucose 126, chest x-ray with no acute cardiopulmonary findings, CT head and CTA head and neck with diffusely heterogeneous cystic left thyroid lobe, mild atherosclerotic plaque formation of the origin of the right ICA and left ICA with less than 50% cross-sectional diameter stenosis, calcified plaque formation of the right and left cavernous carotid with mild stenosis less than 50%, CT head with no overt concerning intracranial findings acutely however final read per radiology pending upon evaluation, EKG sinus rhythm with no acute evidence of ischemia. ON LICENSE OF [facility] Medical History (Updated 03/08/24 @ 21:[address] Ne Shaw MD) Anxiety and depression Arthritis Chronic back pain CKD (chronic kidney disease), stage III Family history of cholecystectomy Hyperlipidemia Hypertension Morbid obesity Home Medications atenolol 50 mg tablet 50 mg PO DAILY 09/10/23 [History Last Taken Unknown] baclofen 10 mg tablet 10 mg PO TID PRN muscle spasm 09/10/23 [History Last Taken Unknown] buspirone 10 mg tablet 10 mg PO BID 09/10/23 [History Last Taken Unknown] celecoxib 100 mg capsule (Celebrex) 100 mg PO BID 09/10/23 [History Last Taken Unknown] cholecalciferol (vitamin D3) 25 mcg (1,000 unit) capsule (Vitamin D3) 25 mcg PO DAILY 09/10/23 [History Last Taken Unknown] pregabalin 150 mg capsule (Lyrica) 150 mg PO BID PRN pain 09/10/23 [History Last Taken Unknown] sertraline 100 mg tablet 200 mg PO DAILY 09/10/23 [History Last Taken Unknown] tramadol 50 mg tablet 100 mg PO Q6H PRN pain 09/10/23 [History Last Taken Unknown] aspirin 81 mg chewable tablet 81 mg PO BREAKFAST #0 tabs 09/11/23 [Rx Last Taken Unknown] atorvastatin 40 mg tablet 40 mg PO QHS #30 tabs 09/11/23 [Rx Last Taken Unknown] Allergy/AdvReac Type Severity Reaction Status Date / Time No Known Allergies Allergy Verified 03/08/24 18:03 Family History Mother Breast cancer Heart disease Father MVA (motor vehicle accident) when patient was baby secondary to MVA, no history medically prior. Surgical History H/O partial thyroidectomy H/O: hysterectomy Social History (Updated 03/08/24 @ 21:[address] Ne Shaw MD) household members: significant other Smoking Status: Never smoker alcohol intake: never substance use type: does not use ROS ROS Narrative Admission Review of Systems: CONSTITUTIONAL: No weight loss, fever, chills, weakness or fatigue. HEENT: + Intermittent episodes of double vision. Eyes: No visual loss, blurred vision or yellow sclerae. Ears, Nose, Throat: No hearing loss, sneezing, congestion, runny nose or sore throat. SKIN: No rash or itching, lesions, wounds. CARDIOVASCULAR: No chest pain, chest pressure or chest discomfort, palpitations, edema, orthopnea, syncopal events. RESPIRATORY: No shortness of breath, cough or sputum, wheezing, hemoptysis. GASTROINTESTINAL: No anorexia, nausea, vomiting or diarrhea, abdominal pain, melena, BRBPR. GENITOURINARY: No dysuria, frequency, urgency or retention. NEUROLOGICAL: + Intermittent double vision as well as reported stuttered speech. No headache, dizziness, syncope, paralysis, ataxia, numbness or tingling in the extremities, focal weakness, change in bowel or bladder control, seizure. MUSCULOSKELETAL: No muscle, back pain, joint pain or stiffness. HEMATOLOGIC: No anemia, bleeding or bruising. LYMPHATICS: No enlarged nodes. No history of splenectomy. PSYCHIATRIC: + History of anxiety and depression. ENDOCRINOLOGIC: No reports of sweating, cold or heat intolerance. No polyuria or polydipsia. ALLERGIES: No history of asthma, hives, eczema or rhinitis. Vital Signs Vital Signs Vital Signs: 03/08/24 18:02 03/08/24 20:02 Temperature 97.6 F L Temperature Source Temporal Pulse Rate 79 60 Respiratory Rate 18 15 Blood Pressure 130/92 H 111/60 Blood Pressure Mean 104 77 Pulse Ox 100 96 Oxygen Delivery Method Room Air Weight Weight: 232 lb 9.403 oz Body Mass Index (BMI) 41.2 Physical Exam Narrative Physical Examination: General: Awake, alert, oriented x 3 and cooperative, seated upright in the ED bed in no apparent distress, denies any current vision changes and speech is fluid. Skin: Normal color, normal turgor, no icterus, no cyanosis. HEENT: AT/NC, EOMI, PERRLA, MMM, no carotid bruits or JVD noted. Lungs: CTA bilaterally, moderate effort, mild decrease BL bases, no rales, ronchi or wheezing. Heart: Regular rate and rhythm; no gallop, rub audible. Abdomen: Soft, morbidly obese, NTTP, distant bowel sounds, no appreciated distention or HSM but habitus makes evaluation difficult. Extremities: No cyanosis, clubbing, or any marked peripheral edema. Neurological: Patient awake, alert, oriented as noted, cognitive function intact; pupils equally reactive to light and accommodation, cranial nerves II-XII grossly normal, moving all 4 extremities, no focal deficits, strength preserved, sensation intact, speech is fluid, crow of vision are intact and no double vision currently reported, negative Babinski, finger-nose and [id number] appropriate. Psychiatric: Affect appears normal, no acute evidence of depressive or anxiety feelings but does have underlying history. Results Lab / Micro Data 03/08/24 18:15 03/08/24 18:15 Labs: Laboratory Results - last 24 hr 03/08/24 18:15: WBC 5.4, RBC 4.95, Hgb 14.7, Hct 43.9, MCV 88.7, MCH 29.7, MCHC 33.5, RDW Std Deviation 42.2, RDW Coeff of Romario 12.9, Plt Count 156, MPV 9.1, Immature Gran % (Auto) 0.200, Neut % (Auto) 58.3, Lymph % (Auto) 30.2, [place] % (Auto) 8.7, Eos % (Auto) 1.7, Baso % (Auto) 0.9, Absolute Neuts (auto) 3.2, Absolute Lymphs (auto) 1.63, Nucleated RBC % 0, Sodium 139, Potassium 4.7, Chloride 109 H, Carbon Dioxide 25.0, Anion Gap 5, BUN 20 H, Creatinine 1.36 H, Estim Creat Clear Calc 47.04, Est GFR (MDRD) Af Amer 50 L, Est GFR (MDRD) Non-Af 41 L, BUN/Creatinine Ratio 14.7, Glucose 126 H, Calcium 8.7 Imaging Radiology Impression Head/Neck CTA 03/08/24 18:26 IMPRESSION: 1. Diffusely heterogeneous cystic left thyroid lobe. Recommend dedicated ultrasound of thyroid gland to evaluate. 2. There is mild atherosclerotic plaque formation of the origin of the right internal carotid artery with less than 50% cross sectional diameter stenosis. ALL ABOVE CRITERIA BY NASCET. 3. There is mild atherosclerotic plaque formation of the origin of the left internal carotid artery with less than 50% cross sectional diameter stenosis. ALL ABOVE CRITERIA BY NASCET. 4. There is calcified plaque formation of the right cavernous carotid artery, with a mild stenosis (less than 50%). ALL ABOVE CRITERIA BY NASCET. 5. There is calcified plaque formation of the left cavernous carotid artery, with a mild stenosis (less than 50%). ALL ABOVE CRITERIA BY NASCET. Electronically Signed: Antoine Najera MD at 20:13 EDT , Chest X-Ray 03/08/24 18:44 IMPRESSION: No radiographic evidence of acute cardiopulmonary disease. Electronically Signed: Antoine Najera MD at 19:10 EDT Reading Location ID and State: [facility] / [place] , Service support , Assessment & Plan Assessment/Plan (1) Brain TIA: PLAN: Plan The patient is a 63 y/o F w/ PMHx: Known thyroid nodules, CKD stage III unclear subtype, Morbid obesity, Chronic back pain< Anxiety and Depression, HTN, HLD, Hx recurrent TIA who presents to the [facility] ED on 03/08/24 with history of episode 4 weeks ago of double vision lasting a minute with resolution following with similar episode on day of presentation approximately 3 hours prior to ED arrival while she was at work again noting double vision seeing images [id number] for approximately 1 to 2 minutes with complete resolution however a friend who was present felt she might have had also some speech alterations with potentially stuttering with resolution quickly prompting ED evaluation. #1. Recurrent episodes of double vision, potentially altered speech, stuttering with resolution concerning for recurrent TIAs: Will admit to PCU, will obtain MRI Brain, PT/OT/Speech/Nutrition evaluation per protocol. Will allow permissive HTN, maintain on asa and pending neurology reassessment will add plavix, continue home statin w/ AM FLP and if necessary may increase, fall precautions. Mag, TSH, FLP, HgbA1c requested. Maintain on fall and aspiration precautions. To be cautious given descriptions will also obtain EEG. Will request neurology consultation. 09/10/2023 echocardiogram with EF 60% with no evidence of diastolic dysfunction and no evidence of shunt thus we will not repeat. If all work-up unremarkable would benefit also from outpatient thorough ophthalmology evaluation. #2. Incidentally noted diffusely heterogeneous cystic left thyroid lobe: Will obtain TSH and free T4 requested. Patient from discussions notes known history and has routine annual thyroid assessments/US already ongoing. #3. Hypertension: Will maintain permissive hypertension given presentation as noted, as needed agents per stroke protocol in the interim. #4. Hyperlipidemia: Continue home statin regimen. AM FLP. #5. Chronic Kidney Disease Stage III, unclear subtype: Admission BUN/Cr 20/1.36, GFR 41, baseline renal function 1.0-1.15 previously however this was in 2022, repeat BMP in AM. #6. Chronic back pain: Will continue patient chronic baclofen regimen to avoid any withdrawal, attempt to hold tizanidine if able, continue home Lyrica regimen. Encourage offloading and positional changes. Continue patient chronic tramadol regimen judiciously. #7. Anxiety and depression: We will continue patient on sertraline regimen as well as buspirone to avoid withdrawal but hold for sedation. #8. Morbid Obesity: Weight loss and lifestyle changes encouraged, nutrition consulted. #9. DVT prophylaxis: Lovenox. #10. CODE status: Patient YOGESH is her friend Zoey who is present. Discussed CODE status at length including difference between FULL code, DNR-CCA and DNR-CC status. Following discussions about the differences in these status, requested Full Code status. Advanced Care Planning Face to Face Time: 16 minutes. Charges/Coding Visit Charges Inpatient E&M: 06332 Init Hosp L2 Procedures Hospitalists Procedures: 74817 Advncd Care Plan 30 Min
--- NOTE | 2024-03-08 21:31 | ED.RN ---
CALLED [facility], TO ASK IF THEY HAD BED AVAILABILITY FOR ADMIT. THEY TRANSFERRED ME AND MY ONLY OPTION WAS TO LEAVE A VOICEMAIL, AND I DID SO AT 2130
--- NOTE | 2024-03-08 21:36 | ED.RN ---
pt took home dose buspirone and atorvastatin approved by Dr. Sears.
[2024-03-08 21:37] VITALS: BP 133/62; PULSE 59; RESP 18; TEMP 36.6; O2SAT 98
[2024-03-08 21:54] VITALS: BMI 42.6
[2024-03-08 22:09] LABS: Magnesium 2.2 mg/dL (1.6-2.6)
[2024-03-08 22:40] VITALS: BP 136/75; PULSE 60; RESP 16; TEMP 36.2; O2SAT 98
[2024-03-08] MEDS: Pregabalin 75 MG Capsule 150 MG PO (23:15)
[2024-03-08] MEDS: 0.9% Normal Saline (1000mL) 1,000 ML 100 ML IV (23:16)
[2024-03-08] MEDS: Clopidogrel Bisulfate 75 MG Tablet PO (23:16)
[2024-03-09] VITALS (7 sets, daily range): BP systolic 112–141; BP diastolic 56–92; PULSE 62–76; RESP 16; TEMP 35.8–36.4; O2SAT 95–98; BMI 42.6; BMI 42.3
[2024-03-09 06:58] LABS: Absolute Lymphocyte Count 1.23 X10^3/uL (0.83-4.51); Absolute Neutrophil Count 2.3 X10^3/uL (2.0-7.7); Basophil# 0.04 X10^3/uL; Eosinophil# 0.09 X10^3/uL; Eosinophils% 2.2 % (0-5); Hematocrit 44.3 % (37-47); Hemoglobin 14.4 g/dL (12.0-15.0); Lymphocyte # 1.23 X10^3/ul (0.83-4.51); Lymphocyte % 29.7 % (19-41); Mean Corp Hgb Conc 32.5 g/dL (32-36); Mean Corpuscular Hgb 29.4 pg (27.0-32.0); Mean Corpuscular Volume 90.4 fL (81-99); Mean Platelet Vol. 9.2 fl (6.2-12.0); Monocyte# 0.42 X10^3/uL; Monocyte% 10.1 % (0-10); NRBC Flagged by Analyzer 0 % (0-5); Neutrophil # 2.34 X10^3/uL (2.7-7.7); Neutrophil % 56.5 % (47-70); Platelet Count 145 K/mm3 (150-450); RBC Distribution Width CV 12.9 % (11.6-14.6); RBC Distribution Width SD 42.8 fl (35.1-43.9); White Blood Count 4.1 K/mm3 (4.4-11.0)
[2024-03-09 07:26] LABS: ALB/GLOB Ratio 1.1 RATIO (0.9-2.4); AST(SGOT) 15 U/L (15-37); Alanine Aminotransfer ALT/SGPT 28 U/L (13-56); Albumin, Serum 3.1 g/dL (3.2-5.0); Alkaline Phosphatase 65 U/L (45-117); Anion Gap 2 (5-15); BUN 19 mg/dL (7-18); Calcium,Total 8.5 mg/dL (8.5-10.1); Chloride 111 mmol/L (98-107); Cholesterol 150 mg/dL (200); Creatinine, Serum 1.12 mg/dL (0.55-1.02); EST Glomerular Filtration Rate 52 mL/min (>60); Est Glom Filt Rate - Afr Amer 63 mL/min (>60); Estimated Creatinine Clearance 56.97 ml/min; Globulin 2.9 g/dL (2.2-4.2); Glucose 106 mg/dL (74-106); High Density Lipoprotein 59 mg/dL; Potassium 4.2 mmol/L (3.5-5.1); Sodium Level 142 mmol/L (136-145); T4 Free Direct 0.81 ng/dL (0.76-1.46); Thyroid Stim Hormone (TSH) 1.99 uIU/mL (0.358-3.74); Triglycerides 77 mg/dL; Very Low Density Lipoprotein 15 mg/dL (5-40)
[2024-03-09 08:15] LABS: Hemoglobin A1c 5.9 % (3.8-5.6)
[2024-03-09] MEDS: 0.9% Normal Saline (1000mL) 1,000 ML 100 ML IV (09:01)
[2024-03-09] MEDS: Pregabalin 75 MG Capsule 150 MG PO (09:43)
[2024-03-09] MEDS: Clopidogrel Bisulfate 75 MG Tablet PO (09:43)
[2024-03-09] MEDS: busPIRone 5 MG Tablet 10 MG PO (09:43)
[2024-03-09] MEDS: Enoxaparin 40 MG/0.4 ML Syringe SC (09:43)
[2024-03-09] MEDS: Sertraline 100 MG Tablet 200 MG PO (09:43)
[2024-03-09] MEDS: Aspirin 81 MG TAB.CHEW PO (09:43)
--- NOTE | 2024-03-09 10:44 | MRI_ITS ---
EXAM: MR HEAD WITHOUT INTRAVENOUS CONTRAST CLINICAL INDICATION: TIA TECHNIQUE: Multiplanar and multisequence MR images of the brain were obtained without intravenous contrast. COMPARISON: CTA head and neck, 03/07/2024 FINDINGS: BRAIN AND EXTRA-AXIAL SPACES: Periventricular and subcortical T2 and T2 FLAIR hyperintensities are nonspecific although most commonly due to chronic microvascular ischemic changes in a patient of this age. There are a few chronic lacunar infarcts in the bilateral basal ganglia and henriquez radiata. There is no restricted diffusion to indicate recent infarct or other pathology. There is no intracranial mass or mass effect and there is no shift of midline structures. There is no intracranial hemorrhage or pathologic extra-axial fluid. There is no hydrocephalus. Basal cisterns are patent. Posterior fossa structures are unremarkable. SELLA: No significant abnormality. Normal sella turcica, pituitary gland, infundibular stalk, optic chiasm and hypothalamus. AUDITORY SYSTEM: No significant abnormality. The internal auditory canals are patent. BONES/JOINTS: No significant abnormality. No discrete lytic or blastic abnormalities. SINUSES: Normal as visualized. Clear. MASTOID AIR CELLS: Normal as visualized. Clear. ORBITS: Normal as visualized. Both globes, extraocular muscles, optic nerves and retrobulbar fat appear unremarkable. VASCULATURE: Normal as visualized. Normal flow voids in the major intracranial circulation. MRI/Brain without Contrast IMPRESSION: Chronic ischemic changes. No evidence of acute infarct or hemorrhage. Electronically Signed: Arthur Domínguez DO at 23:56 EDT ,
--- NOTE | 2024-03-09 11:26 | CASEMGMT ---
SW completed a PHQ 9 with patient as patient may have had a Stroke vs TIA. Patient scored a 0 which indicates no depression. Patient told SW she is on medicine for her depression and it works well. Patient declined any resources. Elana TORRES
--- NOTE | 2024-03-09 12:05 | STROKE.CONS ---
Assessment and Plan: Stroke Assessment/Plan ARRON SMITH, is a 63 yo RH F with history of prior TIA 09/2023 on Asa/lipitor, HL, HTN who presents for evaluation of TI. On 03/08/2024 at work she had a 1 minute episode of horizontal diplopia, resolved after 1 minute. She presented to [place] [facility]. CT brain negative. CTA head/neck negative. She was admitted. MRI brain DWI negative. LDL 76. She is on lovenox SQ, Asa, lipitor. Neurological examination shows nonfocal exam, NIHSS-0. ASSESSMENT/PLAN: Suspected DWI negative TIA 1) TIA work-up completed. Continue Asa/lipitor. 2) Recommend outpatient referral for Ophtho 3) Agree with EM as outpatient (already ordered by her neurologist) and follow-up with her outpatient neurologist. HPI Consult Data Date of Consult: 03/09/24 HPI Narrative HPI Narrative: ARRON SMITH, is a 63 yo RH F with history of prior TIA 09/2023 on Asa/lipitor, HL, HTN who presents with transient episode of diplopia. Of note, patient had a transient episode of drunk speech in Sep 2023, CTA head/neck and MRI brain DWI negative. TTE EF 60%. She was diagnosed with TIA and is on Asa/lipitor. Approximately 4 weeks ago she had a 1 minute episode of horizontal diplopia, that resolved. She saw her neurologist last week who ordered and outpatient holter monitor. Then on 03/08/2024 at work she had a recurrent 1 minute episode of horizontal diplopia, resolved after 1 minute. She presented to [facility]. CT brain negative. CTA head/neck negative. She was admitted. MRI brain DWI negative. This morning she feels at baseline. LDL 76. She is on lovenox SQ, Asa, lipitor. [facility] Medical History (Updated 03/08/24 @ 22:47 by Joanie Crawford) Anxiety and depression Arthritis Chronic back pain CKD (chronic kidney disease), stage III CPAP (continuous positive airway pressure) dependence Family history of cholecystectomy Hyperlipidemia Hypertension Hypothyroidism Morbid obesity Sleep apnea Home Medications atenolol 50 mg tablet 50 mg PO DAILY 09/10/23 [History Last Taken Unknown] baclofen 10 mg tablet 10 mg PO TID PRN muscle spasm 09/10/23 [History Last Taken Unknown] buspirone 10 mg tablet 10 mg PO BID 09/10/23 [History Last Taken Unknown] celecoxib 100 mg capsule (Celebrex) 100 mg PO BID 09/10/23 [History Last Taken Unknown] cholecalciferol (vitamin D3) 25 mcg (1,000 unit) capsule (Vitamin D3) 25 mcg PO DAILY 09/10/23 [History Last Taken Unknown] pregabalin 150 mg capsule (Lyrica) 150 mg PO BID PRN pain 09/10/23 [History Last Taken Unknown] sertraline 100 mg tablet 200 mg PO DAILY 09/10/23 [History Last Taken Unknown] tramadol 50 mg tablet 100 mg PO Q6H PRN pain 09/10/23 [History Last Taken Unknown] aspirin 81 mg chewable tablet 81 mg PO BREAKFAST #0 tabs 09/11/23 [Rx Last Taken Unknown] atorvastatin 40 mg tablet 40 mg PO QHS #30 tabs 09/11/23 [Rx Last Taken Unknown] Allergy/AdvReac Type Severity Reaction Status Date / Time No Known Allergies Allergy Verified 03/08/24 18:03 Family History Mother Breast cancer Heart disease Father MVA (motor vehicle accident) when patient was baby secondary to MVA, no history medically prior. Surgical History H/O partial thyroidectomy H/O: hysterectomy Social History (Updated 03/08/24 @ 21:[address] Ne Shaw MD) household members: significant other Smoking Status: Never smoker alcohol intake: never substance use type: does not use Vital Signs Vital Signs Vital Signs: 03/08/24 18:02 03/08/24 20:02 03/08/24 21:37 Temperature 97.6 F L 97.9 F Temperature Source Temporal Pulse Rate 79 60 59 L Pulse Strength Respiratory Rate 18 15 18 Respiratory Effort Respiratory Depth Respiratory Pattern Blood Pressure 130/92 H 111/60 133/62 H Blood Pressure Mean 104 77 85 Blood Pressure Source Blood Pressure Position Blood Pressure Location Pulse Ox 100 96 98 Oxygen Delivery Method Room Air 03/08/24 22:00 03/08/24 22:40 03/09/24 00:01 Temperature 97.1 F L Temperature Source Temporal Pulse Rate 60 Pulse Strength Normal (2+) Respiratory Rate 16 Respiratory Effort Respiratory Depth Respiratory Pattern Blood Pressure 136/75 H Blood Pressure Mean 95 Blood Pressure Source Monitor Blood Pressure Position Semi-Fowlers Blood Pressure Location Left Arm Pulse Ox 98 96 Oxygen Delivery Method Room Air Room Air 03/08/24 23:15 03/09/24 02:00 03/09/24 02:15 Temperature 97.3 F L Temperature Source Temporal Pulse Rate 62 Pulse Strength Respiratory Rate 16 Respiratory Effort Normal Non-Labored Normal Non-Labored Respiratory Depth Respiratory Pattern Blood Pressure 112/92 H Blood Pressure Mean 98 Blood Pressure Source Monitor Blood Pressure Position Semi-Fowlers Blood Pressure Location Left Arm Pulse Ox 97 Oxygen Delivery Method Room Air Room Air Room Air 03/09/24 05:51 03/09/24 07:48 03/09/24 09:26 Temperature 97.5 F L Temperature Source Temporal Pulse Rate 69 Pulse Strength Respiratory Rate 16 Respiratory Effort Normal Non-Labored Respiratory Depth Normal Respiratory Pattern Normal Blood Pressure 124/64 H Blood Pressure Mean 84 Blood Pressure Source Monitor Blood Pressure Position Semi-Fowlers Blood Pressure Location Left Arm Pulse Ox 96 96 Oxygen Delivery Method Room Air Room Air Room Air 03/09/24 09:31 Temperature 96.7 F L Temperature Source Temporal Pulse Rate 71 Pulse Strength Respiratory Rate 16 Respiratory Effort Respiratory Depth Respiratory Pattern Blood Pressure 141/63 H Blood Pressure Mean 89 Blood Pressure Source Monitor Blood Pressure Position Semi-Fowlers Blood Pressure Location Left Arm Pulse Ox 95 Oxygen Delivery Method Room Air Weight Weight: 105 kg Body Mass Index (BMI) 42.3 NIHSS NIHSS Nursing Documentation NIHSS Nursing Documentation: NIHSS: Ischemic Stroke/TIA Start: 03/08/24 22:32 Text: For PCU Patients: NIH and Neuro Check every 4 Status: Active hours, PRN and with change in RN caregiver. Freq: [id number] Protocol: Activity Type Activity Date Activity User E-sign Co-sign Detail Recorded Client Recorded Date Recorded By Document 03/09/24 09:31 MS Desktop 03/09/24 09:38 MS 03/09/24 09:31 NIH Stroke Scale [NIHSS] A score of 0 is normal or asymptomatic . Total possible score is 42. Inpatient: RN or Physician to activate a stroke alert for onset of new stroke symptoms or with NIHSS increase >/= 3 points. Following change in neurological status, NIHSS will be performed per physician order or more frequently PRN. -1a. Level of Consciousness Alert; keenly responsive -1b. LOC Questions Answers BOTH questions correctly. -1c. LOC Commands Performs both tasks correctly . -2. Best Gaze Normal -3. Visual No visual loss -4. Facial Palsy Normal symmetrical movements -5a. Left Arm No drift; arm holds 90 (or 45 ) degrees for full 10 seconds -5b. Right Arm No drift; arm holds 90 (or 45 ) degrees for full 10 seconds -6a. Left Leg No drift; leg holds 30-degree position for full 5 seconds -6b. Right Leg No drift; leg holds 30-degree position for full 5 seconds -7. Limb Ataxia Absent -8. Sensory Normal; no sensory loss -9. Best Language No aphasia; normal -10. Dysarthria Normal -11. Extinction and Inattention No abnormality -Total 0 Query Text:A score of 0 is normal or asymptomatic. Total possible score is 42 . ED: Notify Physician for NIHSS increase by > / = 3 points. Inpatient: RN or Physician to activate a stroke alert for NIHSS increase of > / = 3 points. Coma Scale [Assess] -Eye Opening Spontaneous -Motor Obeys Commands -Verbal Oriented [Total] -Coma Scale Total 15 NIHSS 1a. Level of Consciousness: Alert; keenly responsive 1b. LOC Questions: Answers BOTH questions correctly. 1c. LOC Commands: Performs both tasks correctly. 2. Best Gaze: Normal 3. Visual: No visual loss 4. Facial Palsy: Normal symmetrical movements 5a. Left Arm: No drift; arm holds 90 (or 45) degrees for full 10 seconds 5b. Right Arm: No drift; arm holds 90 (or 45) degrees for full 10 seconds 6a. Left Leg: No drift; leg holds 30-degree position for full 5 seconds 6b. Right Leg: No drift; leg holds 30-degree position for full 5 seconds 7. Limb Ataxia: Absent 8. Sensory: Normal; no sensory loss 9. Best Language: No aphasia; normal 10. Dysarthria: Normal 11. Extinction and Inattention: No abnormality Total: 0 Physical Exam Neuro Neuro Narrative: Neurological examination: General: The patient appears nutritionally appropriate, well-groomed, and appears comfortable in no acute distress. Mental Status: The patient?s mental status was normal including orientation. Language was intact. Cranial nerves: Visual crow full, and extra-ocular motion was intact. Face motion symmetric. Tongue was midline with normal movement. There was no dysarthria. Motor: Normal strength and tone in all four extremities. No pronator drift. Sensation: Intact light touch bilaterally, no extinction. Coordination: Bilateral finger to nose was normal. There was no dysmetria. Gait: deferred Lab / Micro Data 03/09/24 06:06 03/09/24 06:06 Labs: Laboratory Results - last 24 hr 03/08/24 18:15: WBC 5.4, RBC 4.95, Hgb 14.7, Hct 43.9, MCV 88.7, MCH 29.7, MCHC 33.5, RDW Std Deviation 42.2, RDW Coeff of Romario 12.9, Plt Count 156, MPV 9.1, Immature Gran % (Auto) 0.200, Neut % (Auto) 58.3, Lymph % (Auto) 30.2, Sublette % (Auto) 8.7, Eos % (Auto) 1.7, Baso % (Auto) 0.9, Absolute Neuts (auto) 3.2, Absolute Lymphs (auto) 1.63, Nucleated RBC % 0, Sodium 139, Potassium 4.7, Chloride 109 H, Carbon Dioxide 25.0, Anion Gap 5, BUN 20 H, Creatinine 1.36 H, Estim Creat Clear Calc 47.04, Est GFR (MDRD) Af Amer 50 L, Est GFR (MDRD) Non-Af 41 L, BUN/Creatinine Ratio 14.7, Glucose 126 H, Calcium 8.7, Magnesium 2.2 03/09/24 06:06: WBC 4.1 L, RBC 4.90, Hgb 14.4, Hct 44.3, MCV 90.4, MCH 29.4, MCHC 32.5, RDW Std Deviation 42.8, RDW Coeff of Romario 12.9, Plt Count 145 L, MPV 9.2, Immature Gran % (Auto) 0.500, Neut % (Auto) 56.5, Lymph % (Auto) 29.7, [place]lette % (Auto) 10.1 H, Eos % (Auto) 2.2, Baso % (Auto) 1.0, Absolute Neuts (auto) 2.3, Absolute Lymphs (auto) 1.23, Nucleated RBC % 0, Sodium 142, Potassium 4.2, Chloride 111 H, Carbon Dioxide 29.0, Anion Gap 2 L, BUN 19 H, Creatinine 1.12 H, Estim Creat Clear Calc 56.97, Est GFR (MDRD) Af Amer 63, Est GFR (MDRD) Non-Af 52 L, BUN/Creatinine Ratio 17.0, Glucose 106, Hemoglobin A1c 5.9 H, Calcium 8.5, Total Bilirubin 0.40, AST 15, ALT 28, Alkaline Phosphatase 65, Total Protein 6.0 L, Albumin 3.1 L, Globulin 2.9, Albumin/Globulin Ratio 1.1, Triglycerides 77, Cholesterol 150, LDL Cholesterol 76, VLDL Cholesterol 15, HDL Cholesterol 59, TSH 1.99, Free T4 0.81 Imaging Radiology Impression Head/Neck CTA 03/08/24 18:26 IMPRESSION: 1. Diffusely heterogeneous cystic left thyroid lobe. Recommend dedicated ultrasound of thyroid gland to evaluate. 2. There is mild atherosclerotic plaque formation of the origin of the right internal carotid artery with less than 50% cross sectional diameter stenosis. ALL ABOVE CRITERIA BY NASCET. 3. There is mild atherosclerotic plaque formation of the origin of the left internal carotid artery with less than 50% cross sectional diameter stenosis. ALL ABOVE CRITERIA BY NASCET. 4. There is calcified plaque formation of the right cavernous carotid artery, with a mild stenosis (less than 50%). ALL ABOVE CRITERIA BY NASCET. 5. There is calcified plaque formation of the left cavernous carotid artery, with a mild stenosis (less than 50%). ALL ABOVE CRITERIA BY NASCET. Electronically Signed: Antoine Najera MD at 20:13 EDT , ADDENDUM: 03/08/24 2340 IMPRESSION: Age consistent senescent changes within the brain, no acute hemorrhage midline shift or mass effect Electronically Signed: Lamberto Magana MD at 23:28 EDT , ADDENDUM: 03/08/24 2341 IMPRESSION: 1. Diffusely heterogeneous cystic left thyroid lobe. Recommend dedicated ultrasound of thyroid gland to evaluate. 2. There is mild atherosclerotic plaque formation of the origin of the right internal carotid artery with less than 50% cross sectional diameter stenosis. ALL ABOVE CRITERIA BY NASCET. 3. There is mild atherosclerotic plaque formation of the origin of the left internal carotid artery with less than 50% cross sectional diameter stenosis. ALL ABOVE CRITERIA BY NASCET. 4. There is calcified plaque formation of the right cavernous carotid artery, with a mild stenosis (less than 50%). ALL ABOVE CRITERIA BY NASCET. 5. There is calcified plaque formation of the left cavernous carotid artery, with a mild stenosis (less than 50%). ALL ABOVE CRITERIA BY NASCET. Electronically Signed: Antoine Najera MD at 20:13 EDT , ADDENDUM: 03/08/24 2342 IMPRESSION: 1. Diffusely heterogeneous cystic left thyroid lobe. Recommend dedicated ultrasound of thyroid gland to evaluate. 2. There is mild atherosclerotic plaque formation of the origin of the right internal carotid artery with less than 50% cross sectional diameter stenosis. ALL ABOVE CRITERIA BY NASCET. 3. There is mild atherosclerotic plaque formation of the origin of the left internal carotid artery with less than 50% cross sectional diameter stenosis. ALL ABOVE CRITERIA BY NASCET. 4. There is calcified plaque formation of the right cavernous carotid artery, with a mild stenosis (less than 50%). ALL ABOVE CRITERIA BY NASCET. 5. There is calcified plaque formation of the left cavernous carotid artery, with a mild stenosis (less than 50%). ALL ABOVE CRITERIA BY NASCET. Electronically Signed: Antoine Najera MD at 20:13 EDT , ADDENDUM: 03/08/24 2342 IMPRESSION: Age consistent senescent changes within the brain, no acute hemorrhage midline shift or mass effect Electronically Signed: Lamberto Magana MD at 23:28 EDT , ADDENDUM: 03/08/24 2351 IMPRESSION: 1. Diffusely heterogeneous cystic left thyroid lobe. Recommend dedicated ultrasound of thyroid gland to evaluate. 2. There is mild atherosclerotic plaque formation of the origin of the right internal carotid artery with less than 50% cross sectional diameter stenosis. ALL ABOVE CRITERIA BY NASCET. 3. There is mild atherosclerotic plaque formation of the origin of the left internal carotid artery with less than 50% cross sectional diameter stenosis. ALL ABOVE CRITERIA BY NASCET. 4. There is calcified plaque formation of the right cavernous carotid artery, with a mild stenosis (less than 50%). ALL ABOVE CRITERIA BY NASCET. 5. There is calcified plaque formation of the left cavernous carotid artery, with a mild stenosis (less than 50%). ALL ABOVE CRITERIA BY NASCET. Electronically Signed: Antoine Najera MD at 20:13 EDT , ADDENDUM: 03/08/24 235 IMPRESSION: Age consistent senescent changes within the brain, no acute hemorrhage midline shift or mass effect Electronically Signed: Lamberto Magana MD at 23:28 EDT , Chest X-Ray 03/08/24 18:44 IMPRESSION: No radiographic evidence of acute cardiopulmonary disease. Electronically Signed: Antoine Najera MD at 19:10 EDT , Active Medications Active Medications Active Medications: Current Medications Generic Name Dose Route Start Last Admin Trade Name Freq PRN Reason Stop Dose Admin Acetaminophen 650 mg 03/08/24 22:32 Acetaminophen 325 Mg Tablet PO Q4H PRN PRN Fever, pain 1-08/13 Al Hydroxide/Mg Hydroxide 30 ml 03/08/24 22:32 Mag Hydrox/Al Hydrox/Simeth 30 Ml Udc PO Q6H PRN PRN Gastric Burning Albuterol Sulfate 2.5 mg 03/08/24 22:32 Albuterol 2.5 Mg/3 Ml Vial.Neb. INHALATION Q2H PRN PRN Dyspnea, wheezing Aspirin 81 mg 03/09/24 08:00 03/09/24 09:43 Aspirin 81 Mg Tab.Chew PO 81 mg BREAKFAST TERRENCE Administration Atorvastatin Calcium 40 mg 03/08/24 22:32 03/08/24 22:49 Atorvastatin Calcium 40 Mg Tablet PO Not Given QHS TERRENCE Baclofen 10 mg 03/08/24 22:32 Baclofen 10 Mg Tablet PO TID PRN PRN muscle spasm Buspirone HCl 10 mg 03/08/24 22:45 03/09/24 09:43 Buspirone 5 Mg Tablet PO 10 mg BID TERRENCE Administration Clopidogrel Bisulfate 75 mg 03/08/24 22:32 03/09/24 09:43 Clopidogrel Bisulfate 75 Mg Tablet PO 75 mg DAILY TERRENCE Administration Enoxaparin Sodium 40 mg 03/09/24 10:00 03/09/24 09:43 Enoxaparin 40 Mg/0.4 Ml Syringe SC 40 mg BID TERRENCE Administration Guaifenesin 20 ml 03/08/24 22:32 Guaifenesin 10 Ml Udc (200mg/10ml) PO Q4H PRN PRN COUGH Hydralazine HCl 5 mg 03/08/24 22:32 Hydralazine 20 Mg/Ml Vial IV 03/09/24 22:32 Q30M PRN maintain BP parameters with HR <60 Sodium Chloride 1,000 mls @ 100 mls/hr 03/08/24 22:32 03/09/24 09:01 IV 03/09/24 13:31 100 mls/hr .Q10H TERRENCE Administration Melatonin 3 mg 03/08/24 22:32 Melatonin 3 Mg Tablet PO QHS PRN PRN INSOMNIA Ondansetron HCl 4 mg 03/08/24 22:32 Ondansetron 4 Mg/2 Ml Vial IV Q8H PRN PRN NAUSEA/VOMITING Pregabalin 150 mg 03/08/24 22:45 03/09/24 09:43 Pregabalin 75 Mg Capsule PO 150 mg BID TERRENCE Administration Prochlorperazine Edisylate 5 mg 03/08/24 22:32 Prochlorperazine 10 Mg/2 Ml Vial IV Q4H PRN PRN Breakthrough Nausea/Vomiting Senna/Docusate Sodium 2 tablet 03/08/24 22:32 Senna/Docusate Sodium 1 Tablet PO BID PRN PRN Constipation Sertraline HCl 200 mg 03/09/24 10:00 03/09/24 09:43 Sertraline 100 Mg Tablet PO 200 mg DAILY TERRENCE Administration Sodium Chloride 10 - 40 ml 03/08/24 21:54 0.9% Saline Lock 10 Ml Syringe IV UD PRN SALINE FLUSH Tramadol HCl 100 mg 03/08/24 22:32 Tramadol 50 Mg Tablet PO Q6H PRN PRN Pain Score 4-10
--- NOTE | 2024-03-09 14:16 | DCINST_ITS ---
Discharge Instructions Diet Discharge Diet: Low fat / Low cholesterol Activity Discharge Activity: Return to Normal Activity Dressing / Incision Call your doctor if you observe: Fever of 101 or Higher, Shortness of breath, Dizziness, Fainting spells, Swelling in the ankles, Chest pain and Increased palpitations (irregular heartbeat) Follow Up Care Test Results: Test results from this visit will be discussed in further detail at your follow- up appointment, if applicable. Discharge Plan Admission Admit Date/Time: 03/08/24 20:59 Attending Provider: Donald Rolle Primary Care Provider: [facility] Consulting Providers: Sekou Narayanan; Esmer Chang; Soraida Velazco; Van Alvarez; Sharon Vega; JOSE FRANCISCO CHRISTIAN; Julienne Barbosa; Stefanie Parra; Alan Hinojosa; Deborah Collier; Marky Gonzales; Jessica Meehan; Kera Taylor; Denis Hudson; Amber Michaels; Clarence Garnett; Ivan Cordova; Marvin Woo; Ann Felton; Julienne Davison; Yohannes Bolden; Heather Nolan; Vern Reynolds; Brandy Harrington; Bhavin Tamayo; Ne Shaw Instructions Patient Instructions: TIA Dc Discharge Orders/Prescriptions Prescriptions: Continued cholecalciferol (vitamin D3) [Vitamin D3] 25 mcg (1,000 unit) capsule 25 mcg PO DAILY buspirone 10 mg tablet 10 mg PO BID celecoxib [Celebrex] 100 mg capsule 100 mg PO BID tramadol 50 mg tablet 100 mg PO Q6H PRN (Reason: pain) pregabalin [Lyrica] 150 mg capsule 150 mg PO BID PRN (Reason: pain) atenolol 50 mg tablet 50 mg PO DAILY sertraline 100 mg tablet 200 mg PO DAILY baclofen 10 mg tablet 10 mg PO TID PRN (Reason: muscle spasm) aspirin 81 mg Tablet,Chewable 81 mg PO BREAKFAST Qty: 0 0RF atorvastatin 40 mg tablet 40 mg PO QHS Qty: 30 0RF Referrals / Follow Up: [facility] [Primary Care Provider] - Disposition Disposition (needs filled in before D/C Order can be placed): Home, Self Care
--- NOTE | 2024-03-09 16:16 | CASEMGMT ---
RN CM in to discuss needs at discharge. RN CM reviewed progress with therapy, no therapy recommended at discharge. Patient denies needs or help at discharge. Patient had no further questions or concerns.
--- NOTE | 2024-03-09 17:45 | PCM.DC.SUM ---
Providers Date of Admission: 03/08/24 Primary Care Physician: [facility] Consultations 03/08/24 22:32 Consult: Tele-Neurology Routine Consulting Provider: [facility] Reason for Consult: Acute Ischemic Stroke/TIA EMERGENT Consult: No MD Notified: Yes Date Notified: 03/08/24 Time Notified: 22:50 Method of Notification: Answering Service Nursing Unit Staff Notify [facility] of Tele-Neurology Consult: Yes Reason For Visit: TIA Diagnosis Discharge Diagnosis (1) Brain TIA: Status: Acute Code(s): G45.9 - Transient cerebral ischemic attack, unspecified Medications at Discharge Home Medications atenolol 50 mg tablet 50 mg PO DAILY 09/10/23 baclofen 10 mg tablet 10 mg PO TID PRN muscle spasm 09/10/23 buspirone 10 mg tablet 10 mg PO BID 09/10/23 celecoxib 100 mg capsule (Celebrex) 100 mg PO BID 09/10/23 cholecalciferol (vitamin D3) 25 mcg (1,000 unit) capsule (Vitamin D3) 25 mcg PO DAILY 09/10/23 pregabalin 150 mg capsule (Lyrica) 150 mg PO BID PRN pain 09/10/23 sertraline 100 mg tablet 200 mg PO DAILY 09/10/23 tramadol 50 mg tablet 100 mg PO Q6H PRN pain 09/10/23 aspirin 81 mg chewable tablet 81 mg PO BREAKFAST #0 tabs 09/11/23 atorvastatin 40 mg tablet 40 mg PO QHS #30 tabs 09/11/23 Hospital Course Operations None Procedures None and Electroencephalogram Summary of Care Provided Minutes Spent on Discharge: 40 Hospital Course: Per HPI: The patient is a 63 y/o F w/ PMHx: Known thyroid nodules, CKD stage III unclear subtype, Morbid obesity, Chronic back pain< Anxiety and Depression, HTN, HLD, Hx recurrent TIA who presents to the [facility] ED on 03/08/24 with history of episode 4 weeks ago of double vision lasting a minute with resolution following with similar episode on day of presentation approximately 3 hours prior to ED arrival while she was at work again noting double vision seeing images [id number] for approximately 1 to 2 minutes with complete resolution however a friend who was present felt she might have had also some speech alterations with potentially stuttering with resolution quickly prompting ED evaluation. She has been following with a neurologist in [place] and relates that she did see them approximately week prior with planned upcoming Holter monitor evaluation to be cautious. In the ED NIH stroke evaluation 0 upon arrival. Workup in the ED included T97.6, heart rate 79, BP 130/92, respiratory rate 18, 100% on room air, CBC with WC 5.4, hemoglobin 14.9, platelet 156 without marked shift, BMP with chloride 109, BUN/creatinine 20/1.36, GFR 41, glucose 126, chest x-ray with no acute cardiopulmonary findings, CT head and CTA head and neck with diffusely heterogeneous cystic left thyroid lobe, mild atherosclerotic plaque formation of the origin of the right ICA and left ICA with less than 50% cross-sectional diameter stenosis, calcified plaque formation of the right and left cavernous carotid with mild stenosis less than 50%, CT head with no overt concerning intracranial findings acutely however final read per radiology pending upon evaluation, EKG sinus rhythm with no acute evidence of ischemia. Hospital Course: 1. TIA?63-year-old female presented in September with a TIA. At the time she had an echocardiogram with an EF of 60% and no evidence of diastolic dysfunction or shunt. Therefore an echocardiogram was not repeated on this admission. CTA of the head and neck was unremarkable and the MRI is still pending read however on my evaluation there did not appear to be an acute stroke. I relayed this information to the patient and discussed with her the fact that while I do not see a new lesion that does not make a definitive read however she felt that since she was feeling better, she did not want to wait for radiology to read the MRI and would prefer to go home. At this time we will be no changes in her medications, given her blurry vision I do recommend outpatient follow-up with ophthalmology as well as her neurologist who is planning on having her in a Holter monitor as an outpatient. I discussed with her the plan for discharge today she expressed understanding of the risk and benefits of going home and would like to go home today. She says that all of her symptoms have completely resolved and she is back to her baseline. She did have an EEG during this hospitalization which was unremarkable. 2. Hypertension, hyperlipidemia, anxiety, depression, chronic pain are all chronic medical conditions which complicate her care. Her home medications were continued where appropriate Physical Exam Narrative General: Alert, Oriented x3, Cooperative, No apparent distress HEENT: Atraumatic, PERRLA, EOMI, Normocephalic Oral: Moist Mucosa Neck: Supple, No JVD Lungs: Diminished, Normal air movement, No rhonchi, No wheeze, No rales Cardiovascular: Regular rate, Regular Rhythm, Normal S1, Normal S2, No murmurs Abdomen: Soft, Non Tender, Non-Distended, No Hepato-splenomegaly Extremities: No edema, Capillary Refill Less than 3 Seconds Skin: No rashes, No breakdown Musculoskeletal: No Tenderness to Palpation of Joints or Extremities Neurological: No focal neurological deficits, Motor Exam 5/5 strength throughout, Sensory exam intact to light touch and pain Psych/Mental Status: Normal Affect, Appropriate Weight / BMI Weight Weight: 231 lb 7.766 oz Body Mass Index (BMI) 42.3 ABG / Lab / Microbiology Data 03/09/24 06:06 03/09/24 06:06 Laboratory: Laboratory Results - last 24 hr 03/08/24 18:15: WBC 5.4, RBC 4.95, Hgb 14.7, Hct 43.9, MCV 88.7, MCH 29.7, MCHC 33.5, RDW Std Deviation 42.2, RDW Coeff of Romairo 12.9, Plt Count 156, MPV 9.1, Immature Gran % (Auto) 0.200, Neut % (Auto) 58.3, Lymph % (Auto) 30.2, [place]yenne % (Auto) 8.7, Eos % (Auto) 1.7, Baso % (Auto) 0.9, Absolute Neuts (auto) 3.2, Absolute Lymphs (auto) 1.63, Nucleated RBC % 0, Sodium 139, Potassium 4.7, Chloride 109 H, Carbon Dioxide 25.0, Anion Gap 5, BUN 20 H, Creatinine 1.36 H, Estim Creat Clear Calc 47.04, Est GFR (MDRD) Af Amer 50 L, Est GFR (MDRD) Non-Af 41 L, BUN/Creatinine Ratio 14.7, Glucose 126 H, Calcium 8.7, Magnesium 2.2 03/09/24 06:06: WBC 4.1 L, RBC 4.90, Hgb 14.4, Hct 44.3, MCV 90.4, MCH 29.4, MCHC 32.5, RDW Std Deviation 42.8, RDW Coeff of Romario 12.9, Plt Count 145 L, MPV 9.2, Immature Gran % (Auto) 0.500, Neut % (Auto) 56.5, Lymph % (Auto) 29.7, [place] % (Auto) 10.1 H, Eos % (Auto) 2.2, Baso % (Auto) 1.0, Absolute Neuts (auto) 2.3, Absolute Lymphs (auto) 1.23, Nucleated RBC % 0, Sodium 142, Potassium 4.2, Chloride 111 H, Carbon Dioxide 29.0, Anion Gap 2 L, BUN 19 H, Creatinine 1.12 H, Estim Creat Clear Calc 56.97, Est GFR (MDRD) Af Amer 63, Est GFR (MDRD) Non-Af 52 L, BUN/Creatinine Ratio 17.0, Glucose 106, Hemoglobin A1c 5.9 H, Calcium 8.5, Total Bilirubin 0.40, AST 15, ALT 28, Alkaline Phosphatase 65, Total Protein 6.0 L, Albumin 3.1 L, Globulin 2.9, Albumin/Globulin Ratio 1.1, Triglycerides 77, Cholesterol 150, LDL Cholesterol 76, VLDL Cholesterol 15, HDL Cholesterol 59, TSH 1.99, Free T4 0.81 Radiography Diagnostic Testing: Radiology Impression Head/Neck CTA 03/08/24 18:26 IMPRESSION: 1. Diffusely heterogeneous cystic left thyroid lobe. Recommend dedicated ultrasound of thyroid gland to evaluate. 2. There is mild atherosclerotic plaque formation of the origin of the right internal carotid artery with less than 50% cross sectional diameter stenosis. ALL ABOVE CRITERIA BY NASCET. 3. There is mild atherosclerotic plaque formation of the origin of the left internal carotid artery with less than 50% cross sectional diameter stenosis. ALL ABOVE CRITERIA BY NASCET. 4. There is calcified plaque formation of the right cavernous carotid artery, with a mild stenosis (less than 50%). ALL ABOVE CRITERIA BY NASCET. 5. There is calcified plaque formation of the left cavernous carotid artery, with a mild stenosis (less than 50%). ALL ABOVE CRITERIA BY NASCET. Electronically Signed: Antoine Najera MD at 20:13 EDT , ADDENDUM: 03/08/24 2340 IMPRESSION: Age consistent senescent changes within the brain, no acute hemorrhage midline shift or mass effect Electronically Signed: Lamberto Magana MD at 23:28 EDT , ADDENDUM: 03/08/24 234 IMPRESSION: 1. Diffusely heterogeneous cystic left thyroid lobe. Recommend dedicated ultrasound of thyroid gland to evaluate. 2. There is mild atherosclerotic plaque formation of the origin of the right internal carotid artery with less than 50% cross sectional diameter stenosis. ALL ABOVE CRITERIA BY NASCET. 3. There is mild atherosclerotic plaque formation of the origin of the left internal carotid artery with less than 50% cross sectional diameter stenosis. ALL ABOVE CRITERIA BY NASCET. 4. There is calcified plaque formation of the right cavernous carotid artery, with a mild stenosis (less than 50%). ALL ABOVE CRITERIA BY NASCET. 5. There is calcified plaque formation of the left cavernous carotid artery, with a mild stenosis (less than 50%). ALL ABOVE CRITERIA BY NASCET. Electronically Signed: Antoine Najera MD at 20:13 EDT , ADDENDUM: 03/08/24 2342 IMPRESSION: 1. Diffusely heterogeneous cystic left thyroid lobe. Recommend dedicated ultrasound of thyroid gland to evaluate. 2. There is mild atherosclerotic plaque formation of the origin of the right internal carotid artery with less than 50% cross sectional diameter stenosis. ALL ABOVE CRITERIA BY NASCET. 3. There is mild atherosclerotic plaque formation of the origin of the left internal carotid artery with less than 50% cross sectional diameter stenosis. ALL ABOVE CRITERIA BY NASCET. 4. There is calcified plaque formation of the right cavernous carotid artery, with a mild stenosis (less than 50%). ALL ABOVE CRITERIA BY NASCET. 5. There is calcified plaque formation of the left cavernous carotid artery, with a mild stenosis (less than 50%). ALL ABOVE CRITERIA BY NASCET. Electronically Signed: Antoine Najera MD at 20:13 EDT , ADDENDUM: 03/08/24 2342 IMPRESSION: Age consistent senescent changes within the brain, no acute hemorrhage midline shift or mass effect Electronically Signed: Lamberto Magana MD at 23:28 EDT , ADDENDUM: 03/08/24 2351 IMPRESSION: 1. Diffusely heterogeneous cystic left thyroid lobe. Recommend dedicated ultrasound of thyroid gland to evaluate. 2. There is mild atherosclerotic plaque formation of the origin of the right internal carotid artery with less than 50% cross sectional diameter stenosis. ALL ABOVE CRITERIA BY NASCET. 3. There is mild atherosclerotic plaque formation of the origin of the left internal carotid artery with less than 50% cross sectional diameter stenosis. ALL ABOVE CRITERIA BY NASCET. 4. There is calcified plaque formation of the right cavernous carotid artery, with a mild stenosis (less than 50%). ALL ABOVE CRITERIA BY NASCET. 5. There is calcified plaque formation of the left cavernous carotid artery, with a mild stenosis (less than 50%). ALL ABOVE CRITERIA BY NASCET. Electronically Signed: Antoine Najera MD at 20:13 EDT , ADDENDUM: 03/08/24 2351 IMPRESSION: Age consistent senescent changes within the brain, no acute hemorrhage midline shift or mass effect Electronically Signed: Lamberto Magana MD at 23:28 EDT , Chest X-Ray 03/08/24 18:44 IMPRESSION: No radiographic evidence of acute cardiopulmonary disease. Electronically Signed: Antoine Najera MD at 19:10 EDT , D/C Instructions Discharge Diet: Low fat / Low cholesterol Call your doctor if you observe: Fever of 101 or Higher, Shortness of breath, Dizziness, Fainting spells, Swelling in the ankles, Chest pain and Increased palpitations (irregular heartbeat) Meaningful Use Info Meaningful Use Meaningful Use Diagnoses (Choose all that apply): None applicable Ischemic Stroke Statin Dosing Therapy Reference: STATIN DOSE THERAPY REFERENCE: * Patients > 75 years receive moderate or high dose statin therapy. * Patients 75 years or YOUNGER should receive HIGH intensity statin dose unless contraindicated. You will be required to document reason for non-treatment if statin daily dose does not meet guidelines. HIGH DOSE STATIN THERAPY DAILY Atorvastatin > than or = to 40 mg Rosuvastatin > than or = to 20 mg Amlodipine + Atorvastatin > than or = to 2.5/40 mg Ezetimibe + Simvastatin 10/80 mg Simvastatin 80mg Discharge Plan Admission Admit Date/Time: 03/08/24 20:59 Attending Provider: Donald Rolle Primary Care Provider: [facility],[place] Consulting Providers: Sekou Narayanan; Esmer Chang; Soraida Velazco; Van Alvarez; Sharon Vega; JOSE FRANCISCO CHRISTIAN; Julienne Barbosa; Stefanie Parra; Alan Hinojosa; Deborah Collier; Marky Gonzales; Jessica Meehan; Kera Taylor; Denis Hudson; Amber Michaels; Clarence Garnett; Ivan Cordova; Marvin Woo; Ann Felton; Julienne Davison; Yohannes Bolden; Heather Nolan; Vern Reynolds; Brandy Harrington; Bhavin Tamayo; Ne Shaw Instructions Patient Instructions: TIA Dc Discharge Orders/Prescriptions Prescriptions: Continued cholecalciferol (vitamin D3) [Vitamin D3] 25 mcg (1,000 unit) capsule 25 mcg PO DAILY buspirone 10 mg tablet 10 mg PO BID celecoxib [Celebrex] 100 mg capsule 100 mg PO BID tramadol 50 mg tablet 100 mg PO Q6H PRN (Reason: pain) pregabalin [Lyrica] 150 mg capsule 150 mg PO BID PRN (Reason: pain) atenolol 50 mg tablet 50 mg PO DAILY sertraline 100 mg tablet 200 mg PO DAILY baclofen 10 mg tablet 10 mg PO TID PRN (Reason: muscle spasm) aspirin 81 mg Tablet,Chewable 81 mg PO BREAKFAST Qty: 0 0RF atorvastatin 40 mg tablet 40 mg PO QHS Qty: 30 0RF Referrals [facility] - Disposition Disposition (needs filled in before D/C Order can be placed): Home, Self Care Charges/Coding Visit Charges Inpatient E&M: 14624 Disch Hosp >30min
== END 2024-03-09 17:45 | disposition home or self-care (01) ==
LOC: ED 21:18 → PCU 21:29
PROVIDERS: Admitting Provider Family Medicine; Emergency Provider Emergency Medicine; Visit Provider Family Medicine
DX: G45.9 Transient cerebral ischemic attack, unspecified (principal); E66.01 Morbid (severe) obesity due to excess calories; Z68.41 Body mass index [BMI] 40.0-44.9, adult; N18.30 Chronic kidney disease, stage 3 unspecified; R47.89 Other speech disturbances; R29.700 NIHSS score 0; M54.9 Dorsalgia, unspecified; G89.29 Other chronic pain; I12.9 Hypertensive chronic kidney disease with stage 1 through stage 4 chronic kidney disease, or unspecified chronic kidney disease; E78.5 Hyperlipidemia, unspecified; F41.9 Anxiety disorder, unspecified; H53.8 Other visual disturbances; Z79.82 Long term (current) use of aspirin; Z79.899 Other long term (current) drug therapy; F32.A Depression, unspecified; E04.1 Nontoxic single thyroid nodule; E03.9 Hypothyroidism, unspecified
CPT/HCPCS: 36415; 70496; 70498; 70551; 71045; 80048; 80053; 80061; 83036; 83735; 84439; 84443; 85025; 93005; 94668; 94762; 95819; 96360; 96361; 96372; 97162; 97166; 97802; 99221; 99285; J7030; Q9967; A4216; G0378

== ENCOUNTER 2024-08-03 07:22 | Observation (INO) | payer OTHER, SELFPAY ==
[2024-07-16 16:27] LABS: Magnesium 2.4 mg/dL (1.6-2.6)
[2024-07-20 15:25] LABS: Absolute Lymphocyte Count 1.14 X10^3/uL (0.83-4.51); Absolute Neutrophil Count 2.8 X10^3/uL (2.0-7.7); Basophil# 0.04 X10^3/uL; Basophil% 0.9 % (0-1); Eosinophil# 0.05 X10^3/uL; Eosinophils% 1.1 % (0-5); Hematocrit 45.1 % (37-47); Hemoglobin 14.7 g/dL (12.0-15.0); Lymphocyte # 1.14 X10^3/ul (0.83-4.51); Mean Corp Hgb Conc 32.6 g/dL (32-36); Mean Corpuscular Hgb 28.7 pg (27.0-32.0); Mean Corpuscular Volume 87.9 fL (81-99); Mean Platelet Vol. 9.3 fl (6.2-12.0); Monocyte# 0.39 X10^3/uL; Monocyte% 8.9 % (0-10); NRBC Flagged by Analyzer 0 % (0-5); Neutrophil # 2.75 X10^3/uL (2.7-7.7); Neutrophil % 62.6 % (47-70); Platelet Count 187 K/mm3 (150-450); RBC Distribution Width CV 12.1 % (11.6-14.6); RBC Distribution Width SD 38.8 fl (35.1-43.9); Red Blood Count 5.13 M/mm3 (4.2-5.4); White Blood Count 4.4 K/mm3 (4.4-11.0)
[2024-07-20 15:35] LABS: Albumin, Serum 3.3 g/dL (3.2-5.0); Anion Gap 8 (5-15); BUN 21 mg/dL (7-18); BUN/Creat Ratio 19.6 RATIO (10-20); Calcium,Total 9.6 mg/dL (8.5-10.1); Chloride 109 mmol/L (98-107); Creatinine, Serum 1.07 mg/dL (0.55-1.02); EST Glomerular Filtration Rate 55 mL/min (>60); Est Glom Filt Rate - Afr Amer 66 mL/min (>60); Glucose 153 mg/dL (74-106); Potassium 4.2 mmol/L (3.5-5.1); Sodium Level 140 mmol/L (136-145)
--- NOTE | 2024-07-31 14:43 | PCM.HP.BLA ---
History and Physical History and Physical Patient Name: Dana Shah : 1960From:? FREDERIC ELDER PA-C DATE OF PRE-OPERATIVE EXAM: 07/29/2024 DATE OF SURGERY:? 08/03/2024 SCHEDULED PROCEDURE:? Direct anterior right total hip arthroplasty HISTORY OF PRESENT ILLNESS: Preoperative history and physical exam was performed on July 29, 2024.? This is a 64-year-old female who is been having ongoing pain in her right hip for the past 1-2 years.? She does feel the pain has been progressively been getting worse.? Patient has been getting pain in the right groin, thigh and gluteal region.? She does feel some sensation of instability in the hip.? Her pain as being constant.? Pain is increased with going up and down stairs, driving, sitting, walking and standing.? She has difficulty with activities of daily living including bathing/showering, housework, and putting on her socks and shoes.? Pain can occasionally awaken her at night and she must use a pillow between her legs.? Patient has attempted rest, elevation, corticosteroid injections, lidocaine patches and oral pain medication with minimal relief.? She denies past history of surgery on the right hip.? She does state she has had a pinched nerve in the back that gets her pain.? She denies any radiation into the feet or ankles.? Denies any numbness and tingling.? Patient has been working on losing weight with appropriate eating and portion control.? Patient [facility] She has medical history pertinent for chronic low back pain, history of TIA with speech defect and vision changes, gastroesophageal reflux disease, chronic kidney disease stage III with 1 kidney, hypertension, thyroid nodule, hyperlipidemia.? She denies past history of DVT or pulmonary embolism.? Patient denies any recent chest pain, shortness of breath, fevers chills, or recent infections.? After failing conservative measures and discussing all treatment options with Dr. Virgilio Mead, the patient does wish to proceed with a direct anterior right total hip arthroplasty. REVIEW OF SYSTEMS: Review Of Systems: Constitutional: Reports change in appetite and weight change, but denies fever. Cardiovasular: Denies chest pain, heart murmur and irregular heartbeat. Respiratory: Denies cough, pneumonia, shortness of breath, tuberculosis and wheezing. Gastrointestinal: Denies constipation, diarrhea, heartburn, nausea, rectal itching, bloody stools and vomiting. Musculoskeletal: Reports gait disturbance, leg swelling, pain, trouble walking and weakness. Skin: Denies Raynaud's, history of shingles and tattoo. Neurological: Denies ambulatory dysfunction, dizziness, numbness/tingling and tremor. Psychiatric: Reports anxiety, but denies insomnia and stress. Hematologic/Lymphatic: Reports bleeding/bruising tendency, but denies anemia and past transfusion. Reviewed and updated. PAST MEDICAL HISTORY: Advance Care Plan: No Advance Directives Effective Date: 07/13/2024 Past Medical History: Medical Problems: Arthritis, High Blood Pressure, Hypercholesterolemia, Sleep Apnea TIA - (09/10/2023) Kidney Disease/Renal Failure - Stage 3 due to one functioning kidney chronic low back pain, Acid Reflux, hyperlipidemia Accidents: Other - fell through steps 5 yrs ago Surgical Hx: Gallbladder - 1997 Hysterectomy - 2011 Right Thyriod Nudle Removal - (04/2022) benign Anesthesia Complications: Nausea Assistive Devices: Cpap, Cane Reviewed and updated. 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 Personal Habits:? Cigarette Use: Never Smoked Cigarettes.Smokeless Tobacco: Never Used Smokeless Tobacco.E-Cigarette Use: Never used.Alcohol: Occasionally.Drug Use: Denies Use.Enjoy Exercising: Exercises 1-3 X/Week. Reviewed, no changes. VITALS: Ht: 62 Wt: 224lb Wt k.606 BMI: 41.0 BP: 130/82 Pulse: 67 Resp: 16 T: 97.4 T: 36.3C Pain Level: 8 O2SatR: 97 ALLERGIES: No Known Drug Allergy MEDICATIONS: Mupirocin 2 % use qtip and apply inside each nostril twice a day until the day of surgery, Aspir-Low 81 mg 1 po qdaily, Buspirone HCL 30 mg 100 mg daily, Atenolol 50 mg 1 by mouth every day, Vitamin D-3 25 mcg (1000 Ut) 1 a day, Sertraline HCL 100 mg 1 by mouth every day, Baclofen 10 mg prn, Atorvastatin Calcium 40 mg 1 by mouth every day, Fluticasone Propionate 50 mcg/Act, Lidocaine Pain Relief 4 % apply 1 patch to right shoulder skin every 12 hours as needed for pain x 7 days, Tylenol Extra Strength 500 mg 2 po bid PRE-OP EXAM: General appearance:NORMAL? Other: Eyes: Conjunctivae and lids: NORMAL? Pupils: ERR Ears, Nose, Mouth, and Throat: NORMAL? Other: Inspection of lips, teeth and gums: NORMAL?? Other: Neck: Examination of neck: no masses noted. Respiratory: Assessment of respiratory effort: NORMAL?? Other: ? Auscultation of lungs: clear to auscultation no wheezes, rhonchi or rales. Cardiovascular:? Auscultation of heart: regular rate and rhythm, no murmurs, gallops or rubs. PHYSICAL EXAMINATION: On exam patient does walk with an antalgic gait with use of cane.? Patient's right hip is without erythema or signs of infection.? She has obligatory external rotation with hip flexion.? She has 20 hip flexion contracture.? External rotation 25, internal rotation neutral.? Hip flexion approximately 75.? Sensation intact to light touch.? There is no erythema or irritation and skin fold. IMAGING STUDIES: Previous x-rays of the right hip reveal severe joint space narrowing with subchondral sclerosis, osteophyte formation consistent with severe stage IV [id number] erosive osteoarthritis.? Previous MRI also reveals significant severe disease with underlying bony edema and full-thickness cartilage erosion. Patient has stage IV [id number] right knee osteoarthritis IMPRESSION: 1.? Severe right hip osteoarthritis 2.? Severe right knee osteoarthritis 3.? Hypertension 4.? History of TIA 5.? Chronic kidney disease stage III with 1 functioning kidney 6.? Chronic low back pain 7.? Sleep apnea 8.? Hypercholesterolemia 9.? Gastroesophageal reflux disease 10.? Morbid obesity with BMI 41.0 PLAN: Dr. Virgilio Mead did discuss and review with the patient all treatment options including surgical versus nonsurgical options.? Patient does wish to proceed with the above-stated procedure.? Potential risks, benefits, and complications of the procedure were discussed in detail including but not limited to , infection, nerve and blood vessel damage, persistent pain, numbness, tingling, paresthesias, blood clot, pulmonary embolism, and requirement for possible further surgery.? The patient expressed full understanding and has no further questions for the doctor.? Patient does agree to proceed with the above-stated procedure and has signed the surgery consent form. POST-OP MEDICATION PLAN: Pain Medications:? Postoperative pain regimen will be initiated by Dr. Virgilio Mead in the hospital.? Patient has been following our nutrition protocol.? She also tested positive for MSSA.? Due to this and her morbid obesity she will be placed on doxycycline postoperatively for 2 weeks.? I did advise the patient that she is more sensitive to the sunlight and should take appropriate precautions.? Also recommended [id number] probiotic.? We are going to be avoiding nonsteroidal anti-inflammatories due to her chronic kidney disease and only 1 kidney as well as history of TIA.? She will bring walker to hospital.? I did advise patient due to the skin pannus that once the Mepilex dressing has been removed at home she should use a 4 x 4 dressing to protect the proximal incision.? She voices understanding. DVT Prophylaxis:? Aspirin 81 mg twice daily for 4 weeks postoperatively.? Denies past history of DVT or pulmonary embolism This dictation was created using voice recognition software. Phonetic and/or grammatical errors may exist. ___? I have re-examined the patient.? There are no clinical changes since date of exam. ___? See progress notes for changes. ___? Dictated on admission Date: ? Time: Signature:
[2024-08-03] VITALS (18 sets, daily range): BP systolic 109–137; BP diastolic 45–73; PULSE 66–87; RESP 14–18; TEMP 35.8–36.9; O2SAT 94–100; BMI 41.4
--- NOTE | 2024-08-03 09:46 | PCM.PRE.AN2 ---
ASA Classification* ASA Classification ASA Classification: 3 Assessment & Plan Anesthesia* Anesthesia Assessment Anesthesia Assessment: Discussed sedation and/or anesthesia options, risks, benefits, and alternatives with patient/parents/legal guardian/POA. Questions invited. The patient/parents/legal guardian/POA seems to understand and agrees to proceed with anesthesia plan. Reviewed the physical assessment, medical history, allergy history and patient home medications list prior to surgery/procedure/anesthetic and documented any changes. Performed airway and anesthesia risk assessments. Anesthesia Type Anesthesia Type: Spinal Anesthesia Focused Assessment* Airway Assessment Mouth opens: >3 cm Mallampati Score: II Focused Labs Anesthesia Preop lab: CBC WBC 4.4 K/mm3 (4.4-11.0) 07/20/24 14:10 RBC 5.13 M/mm3 (4.2-5.4) 07/20/24 14:10 Hgb 14.7 g/dL (12.0-15.0) 07/20/24 14:10 Hct 45.1 % (37-47) 07/20/24 14:10 Plt Count 187 K/mm3 (150-450) 07/20/24 14:10 CHEMISTRY Potassium 4.2 mmol/L (3.5-5.1) 07/20/24 14:10 Sodium 140 mmol/L (136-145) 07/20/24 14:10 Magnesium 2.4 mg/dL (1.6-2.6) 07/16/24 15:27 BUN 21 mg/dL (7-18) H 07/20/24 14:10 Creatinine 1.07 mg/dL (0.55-1.02) H 07/20/24 14:10 Glucose 153 mg/dL (74-106) H 07/20/24 14:10 POC Glucose 88 mg/dL (74-106) 09/10/23 12:54 TSH 1.99 uIU/mL (0.358-3.74) 03/09/24 06:06 COAG PT 12.0 SECONDS (11.7-14.9) 09/10/23 12:42 Pre-Assessment Diagnosis/Proposed Procedure Planned Operative Procedure(s): (R) ANTERIOR RIGHT TOTAL HIP ARTHROPLASTY, ERAS Anesthesia History 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 When Was Last Pacemaker Check QUESTION #4 FULL TEXT: You/Your Family Experience fever (hyperthermia) with Anesthesia Last Oral Intake Last Oral intake: Last Oral Intake NPO since Meds taken in AM with sips of water? Meds patient instructed to take am of surgery PONV PONV - hospital tray service worker: PONV - hospital tray service worker Female Yes 07/20/24 13:17 HX of Motion Sickness No 07/20/24 13:17 HX of N/V After Surgery No 07/20/24 13:17 Non-Smoker Yes 07/20/24 13:17 Duration of Surgery greater Yes 07/20/24 13:17 than 60 minutes Number of Risk Factors 3 07/20/24 13:17 PONV Score Moderate Risk 07/20/24 13:17 Height & Weight Height & Weight: Anesthesia: Height & Weight Height 5 ft 2 in 07/31/24 08:06 Weight: 101.605 kg 07/31/24 08:06 Respiratory Assessment Respiratory Assessment - hospital tray service worker: Respiratory Tract Infection Hx - hospital tray service worker Hx Respiratory Tract Infection No 07/20/24 13:17 STOP Sleep Apnea STOP Sleep Apnea - hospital tray service worker: STOP Sleep Apnea - hospital tray service worker Hx Hypertension Yes: CONTROLLED ON MED 07/20/24 13:17 Hx Sleep Apnea Yes 07/20/24 13:17 CPAP Yes 07/20/24 13:17 BIPAP No 07/20/24 13:17 Do you snore loudly (louder than talking or can be heard Do you often feel tired/ fatigued/ sleepy during daytime? Has anyone observed you stop breathing during sleep? STOP Results Positive 07/20/24 13:17 QUESTION #5 FULL TEXT : Do you snore loudly (louder than talking or can be heard through closed doors)? 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 Specify any problems Hx of Preganancy in last 3 No 07/20/24 13:17 Months Nurse Filling Out Transfusion VCHRISTIN 07/20/24 13:17 & Questions: Date: 07/20/24 07/20/24 13:17 Time: 13:18 07/20/24 13:17 Patient unable to answer at this time (ie. confused, unrespo /Reproduction History /Reproductive History - hospital tray service worker: /Reproductive Hx- hospital tray service worker Hx Now No 07/20/24 13:17 Gestational Age (in weeks): EDC: Hx Hx Para Hx Section SAB No 07/20/24 13:17 Active Medications Active Medications: Current Medications Generic Name Dose Route Start Last Admin Trade Name Freq PRN Reason Stop Dose Admin Acetaminophen 1,000 mg 08/03/24 11:15 Acetaminophen 500 Mg Tablet PO 08/03/24 11:16 X1 ONE Acetaminophen 1,000 mg 08/03/24 14:00 Acetaminophen 500 Mg Tablet PO Q8 [facility] Aspirin 81 mg 08/03/24 10:00 Aspirin 81 Mg Tab.Chew PO BID TERRENCE Atenolol 50 mg 08/03/24 10:00 Atenolol 50 Mg Tablet PO DAILY [facility] Protocol Atorvastatin Calcium 40 mg 08/03/24 22:00 Atorvastatin Calcium 40 Mg Tablet PO QHS [facility] Buspirone HCl 10 mg 08/03/24 10:00 Buspirone 5 Mg Tablet PO BID [facility] Cholecalciferol 25 mcg 08/03/24 10:00 Cholecalciferol (Vit D3) 25 Mcg Tablet (1,000 Units) PO DAILY [facility] Sodium Chloride 78.4 ml/ 0 ml 08/03/24 11:15 Ropivacaine 200 mg/ IV 08/03/24 11:16 Epinephrine HCl 0.6 mg/ X1 ONE Morphine Sulfate 5 mg Dexamethasone Sodium Phosphate 10 mg 08/03/24 11:15 Dexamethasone 10 Mg/Ml Vial IV 08/03/24 11:16 X1 ONE Doxycycline Monohydrate 100 mg 08/04/24 13:00 Doxycycline 100 Mg Capsule PO BID [facility] Enteral Nutritional Formula 237 ml 08/03/24 08:00 Ensure Surgery 237 Ml Liquid PO TIDCM [facility] Famotidine 20 mg 08/03/24 10:00 Famotidine 20 Mg Tablet PO DAILY [facility] Gabapentin 600 mg 08/03/24 11:15 Gabapentin 600 Mg Tablet PO 08/03/24 11:16 X1 ONE Lactated Ringer's 1,000 mls @ 999 mls/hr 08/03/24 11:15 IV 08/03/24 12:15 .Q1H1M [facility] Cefazolin Sodium 2 gm/ Sodium 110 mls @ 150 mls/hr 08/03/24 11:15 Chloride IV 08/03/24 11:58 PREOP ONE Tranexamic Acid 1,000 mg/ 110 mls @ 660 mls/hr 08/03/24 11:15 Sodium Chloride IV 08/03/24 11:24 X1 ONE Tranexamic Acid 1,000 mg/ 110 mls @ 660 mls/hr 08/03/24 12:15 Sodium Chloride IV 08/03/24 12:24 X1 ONE Lactated Ringer's 1,000 mls @ 999 mls/hr 08/03/24 12:15 IV 08/03/24 13:15 .Q1H1M TERRENCE Lactated Ringer's 1,000 mls @ 125 mls/hr 08/03/24 13:15 IV 08/03/24 21:14 .Q8H [facility] Vancomycin HCl 1,500 mg/ 530 mls @ 250 mls/hr 08/03/24 09:45 Sodium Chloride IV 08/03/24 11:52 PREOP ONE Magnesium Sulfate 1 gm/ 102 mls @ 408 mls/hr 08/03/24 11:15 Dextrose IV 08/03/24 11:29 X1 ONE Cefazolin Sodium 1 gm in 50 mls @ 150 mls/hr 08/03/24 14:00 IV 08/03/24 22:19 Q8 T[facility]ENCE Lactated Ringer's 1,000 mls @ 15 mls/hr 08/03/24 09:45 IV .Q48H [facility] Insulin Human Lispro 1 - 6 unit 08/03/24 11:15 Insulin Lispro 100 Unit/Ml Insuln.Pen SC 08/03/24 17:15 Q4H PRN PRN BG>/= 180, SEE PROTOCOL Protocol Morphine Sulfate 2 - 4 mg 08/03/24 07:22 Morphine 2 Mg/Ml Syringe IV Q2H PRN PRN Pain Score 4-10 Ondansetron HCl 4 mg 08/03/24 07:22 Ondansetron 4 Mg/2 Ml Vial IV Q8H PRN PRN NAUSEA Oxycodone HCl 5 - 10 mg 08/03/24 07:22 Oxycodone 5 Mg Tablet PO Q4H PRN PRN Pain Score 4-10 Promethazine HCl 12.5 mg 08/03/24 07:22 Promethazine 25 Mg/Ml Syringe IM Q6H PRN PRN NAUSEA/VOMITING Protocol Senna/Docusate Sodium 2 tablet 08/03/24 10:00 Senna/Docusate Sodium 1 Tablet PO BID [facility] Sertraline HCl 200 mg 08/03/24 10:00 Sertraline 100 Mg Tablet PO DAILY [facility] PFSH Medical History Wears glasses Post-menopausal History of steroid therapy History of renal disease History of hiatal hernia History of echocardiogram Kidney abscess Hypothyroidism CPAP (continuous positive airway pressure) dependence Sleep apnea CKD (chronic kidney disease), stage III Morbid obesity Anxiety and depression Arthritis Hyperlipidemia Hypertension Family history of cholecystectomy Chronic back pain Home Medications ?Medication ?Instructions ?Recorded ?Last Taken ?Type atenolol 50 mg tablet 50 mg PO DAILY BP 09/10/23 Unknown History buspirone 10 mg tablet 10 mg PO BID mental health 09/10/23 Unknown History celecoxib 100 mg capsule (Celebrex) 100 mg PO BID PRN pain 09/10/23 Unknown History cholecalciferol (vitamin D3) 25 25 mcg PO DAILY vitamin 09/10/23 Unknown History mcg (1,000 unit) capsule (Vitamin D3) sertraline 100 mg tablet 200 mg PO DAILY mental health 09/10/23 Unknown History tramadol 50 mg tablet 100 mg PO Q6H PRN pain 09/10/23 Unknown History aspirin 81 mg chewable tablet 81 mg PO BREAKFAST heart health #0 11/08/23 Unknown Rx tabs atorvastatin 40 mg tablet 40 mg PO QHS cholesterol #30 tabs 09/11/23 Unknown Rx acetaminophen 500 mg capsule 1,000 mg PO Q6H PRN pain 07/20/24 Unknown History Allergy/AdvReac Type Severity Reaction Status Date / Time No Known Allergies Allergy Verified 07/20/24 13:00 Family History Mother Breast cancer Heart disease Father MVA (motor vehicle accident) when patient was baby secondary to MVA, no history medically prior. Surgical History History of vocal cord polypectomy Hx laparoscopic cholecystectomy H/O partial thyroidectomy H/O: hysterectomy Social History household members: significant other Smoking Status: Never smoker alcohol intake: never substance use type: does not use Review of Systems (Anesthesia) ROS Narrative System reviewed and no additional complaints, except as documented.
[2024-08-03] MEDS: Vancomycin HCl 1,500 MG in 0.9% Normal Saline (500mL Bag) 500 ML 250 MG IV (10:01)
[2024-08-03] MEDS: Lactated Ringers 1,000 ML 999 ML IV ×2 (10:01→13:14)
[2024-08-03] MEDS: Magnesium 1 GM over 15 mins IV (10:02)
[2024-08-03] MEDS: Acetaminophen 500 MG Tablet 1000 MG PO ×3 (10:15→21:47)
[2024-08-03] MEDS: Gabapentin 600 MG Tablet PO (10:15)
--- NOTE | 2024-08-03 10:15 | RAD_ITS ---
STUDY: X-RAY - PELVIS AND RIGHT HIP REASON FOR EXAM: Female, 64 years old. Total hip arthroplasty follow-up. TECHNIQUE: 4 intraoperative digital documentation views of the pelvis and hip. COMPARISON: None. FINDINGS: 4 intraoperative digital documentation views show a right total hip arthroplasty. RAD/Hip 1 view with Pelvis IMPRESSION: Intraoperative digital documentation views. Electronically Signed: Serge James MD at 12:30 EDT ,
[2024-08-03 10:46] LABS: Bedside Glucose 178 mg/dL (74-106)
[2024-08-03] MEDS: Cefazolin 2 GM in 0.9% Normal Saline (100mL Bag) 100 ML IV (11:00)
[2024-08-03] MEDS: dexAMETHasone 10 MG/ML Vial IV (11:05)
--- NOTE | 2024-08-03 11:15 | HIP_PTH ---
PATIENT: ARRON SMITH LOC: MS3 U#:[id number] AGE/SX: 64/F ROOM: MI317 RE08/03/[address]: Dr. Virgilio Mead MD : 1960 BED: 1 DIS: 08/04/2024 SPEC #: [id number] RECD: 08/03/24 13:16 STATUS: OSCAR SALINAS #: [id number] LAURITA: 08/03/24 11:[address]: Virgilio Mead DEPT: SURGICAL PATHOLOGY RECD BY: Vaishali Castro ENTERED: 08/03/24 13:37 SP TYPE: TOTAL HIP OTHR DR: Dr. Wesley Hernandez MD [facility] Tissues: Hip, NOS Procedures: Decalcification bone/plaque Surgery Specimen Level IV HEADER OPERATION: Anterior right total hip arthroplasty PRE-OP DIAGNOSIS: Severe right hip osteoarthritis TISSUE SUBMITTED: Right hip bone and tissue MICROSCOPIC DIAGNOSIS Right hip bone and soft tissue, total hip replacement/resection: Femoral head with degenerative osteoarthritic changes. Fragments of fibroadipose tissue, fibroconnective tissue and reactive synovial tissue with chronic inflammation. CICI: 08/06/2024 MICROSCOPIC DESCRIPTION Slides are reviewed. GROSS DESCRIPTION Received is one container labeled with the patient's name and designated bone and soft tissue right hip. The specimen consists of a jacome femoral head and detached piece of femoral neck. The femoral head measures 4.0 x 4.5 x 4.0 cm . Detached piece of femoral neck measures 3.5 x 3.5 x 1.5cm. The articular surface displays prominent osteophyte formation, eburnation and bone erosion. Also present in the specimen container are multiple irregular fragments of bone reamings and pink-yellow soft tissue measuring in aggregate 8.0 x 7.0 x 2.5 cm. Window Cleaner sections are submitted in two cassettes as follows: 1 - soft tissue, 2 - bone after decalcification. 08/03/2024 TC:5 CPT: 20600, 32157
[2024-08-03] MEDS: TXA 1000mg in NS100 100ml (IVPB at Incision) 660 MG IV (11:16)
[2024-08-03] MEDS: TXA 1000mg in NS100 100ml (IVPB at Closure) 660 MG IV (12:13)
[2024-08-03] MEDS: Joint Pain Solution (NO KETOROLAC) IV (12:15)
--- NOTE | 2024-08-03 12:25 | PCM.OPRPT ---
Report of Operation Date of Procedure: 08/03/24 Pre-Operative Diagnosis: Right hip primary osteoarthritis Post-Operative Diagnosis: Right hip primary osteoarthritis Surgery/Procedure Performed:: Right minimally invasive direct anterior total hip replacement Description of Surgical Findings:: Stable hip with equal leg length Surgeon: Virgilio Mead carding doubler: Derian Strong Type of Anesthesia: Spinal Anesthesiologist: Wesley Hernandez Special Medications: 2 g Ancef, 1 g TXA at incision, 1 g TXA closure, 10 mg Decadron, joint cocktail (5 mg Duramorph, 30 mL of 0.5% Ropivicaine, 1000 units of epinephrine, 30 mg of Toradol) Specimen's removed: Bony cuts Estimated Blood Loss (mL): 450 Fluids Replaced: 1000 mL crystalloid Description of Procedure: Components used: 1. Insignia Hal femoral stem size 2 high offset 2. Hal trident 2 acetabular shell size 48 mm 3. Hal X3 polyethylene D 4. Oxford Biolox delta 36mm, -2.5mm femoral head Brief history operative indications: 64 yo F who failed conservative measures for their hip osteoarthritis. X-rays were consistent with osteoarthritis including joint space narrowing, osteophyte formation and subchondral cysts. Total hip replacement was discussed with the patient with risks and benefits including but not limited to blood loss, DVTs, PEs, neurovascular damage, dislocation, general risks of anesthesia including loss of life. Patient demonstrated an understanding medical clearance is obtained the patient was consented for surgery. Procedure: On the date of procedure the patient's right hip was marked in the preoperative area. Patient was then taken back to the operating room where anesthesia assumed control of the C-spine and airway and administered anesthetic. Patient was transferred to the operating table and placed in the supine position. The hips were placed at the break of the bed and a sacral bump was placed. The right lower extremity was then prepped out in a sterile fashion using chlorhexidine while the surgeon scrubbed. The PA was vital in the positioning of the patient. Upon reentering the room the right lower extremity was draped in the standard orthopedic fashion and the incision was marked. A timeout was called and everyone agreed upon the side, the site, the procedure be performed, antibody given, and patient's identity. At this time incision was made through skin, subcutaneous tissue, and fat down to fascia. The fascia was then incised and the TFL was retracted laterally. A retractor was placed on the lateral border of the femoral neck. Attention was directed to the inferior portion of the approach and all crossing vessels were identified and appropriately coagulated. A retractor was then placed on the medial portion of the femoral neck. The anterior capsule was then cleared of all soft tissue and then H shaped capsulotomy was made. The retractors were then placed inside the capsule. The femoral neck was identified and a cleanup cut was made. At this time a power corkscrew was used to remove the femoral head. Attention was then turned toward the acetabulum where the soft tissues were appropriately retracted and the acetabulum was sequentially reamed to 48 mm. A 48 mm cup was then selected and impacted into place. Acetabular liner was impacted into place and locking mechanism was verified. The position of the acetabular cup was then verified under live fluoroscopy. Attention was then turned to the femur. Soft tissue releases on the medial and lateral femoral neck were appropriately done, the leg was externally rotated and lateralized. A Bazzi retractor was placed medially and proximally to the greater trochanter this allowed appropriate visualization and exposure of the femoral canal. Rongeour was then used to remove excess lateral bone. A canal finder and entry broach were used to open the proximal canal. Once we verified we were down the femoral canal we subsequently broached up to a size 2 femur. The appropriate neck was placed in the previously selected head was trialed with a -2.5 mm neck. Traction was pulled and the hip was reduced with internal rotation. Once it was appropriately reduced and stability was checked. There was minimal shuck, equal leg lengths and appropriate stability with hyperextension and external rotation as well as with 90? flexion and internal rotation. Fluoroscopy was then also used to verify the position of the components and leg lengths using the contralateral side for comparison. The trial components were then dislocated the proximal femur was again exposed and the components were removed from the wound. The final components were verified and opened. The wound was copiously irrigated out with normal saline. The acetabulum was checked for any residual debris. The final components were placed and impacted. Traction and internal rotation were again used to reduce the hip. After adequate reduction the hip remained stable with appropriate leg lengths. The final components were once again checked with live fluoroscopy and were found to be satisfactory. The wound was then copiously irrigated with normal saline once more, and hemostasis was obtained. Closure was then done using #1 Vicryl runner to close the fascia. A 2-0 vicryl interuppted sutures were used to close the subcutaneous skin. A 3-0 Monocryl and Steri-Strips were used for final skin closure. A Silverlon dressing was placed. Patient was awakened by anesthesia and transferred to the [facility]. Patient was then transferred to the PACU for recovery. During the course of the procedure the physician web design specialist (PE) played a vital role. Their intimate knowledge of my steps in the procedure aided in safe and expedient completion of the procedure. The PE played a vital rolls in positioning particularly in obtaining the appropriate positioning of the sacral bump. The PE was also vital in the retraction of soft tissues during the exposure and especially the femoral work as this is a vital part of the procedure to prevent complications and fractures. The PE was also vital and protecting soft tissues during times of bony cuts and reaming. He also played a vital role in closure with my direct supervision. The PE was also important during reduction and dislocation of the joint and trials intraoperatively. Postoperative plan: Patient will get 24 hours postop antibiotics. Patient will get in-house physical therapy and will be weight-bear as tolerated. Patient will follow up in office in 2 weeks for a wound check and x-rays. Aspirin 81 mg twice daily. Patient had positive staph screening preoperatively. Will be placed on doxycycline 100 mg p.o. twice daily for 2 weeks for extended postop oral antibiotics Complications No intraoperative complications Admit VTE Documentation VTE Present on Admission: No VTE Mechan Device Prophylaxis: SCD's and Thigh High JERROD Hose VTE Pharm Prophylaxis ordered?: Yes
--- NOTE | 2024-08-03 13:07 | PCM.POST.ANE ---
Anesthesia: Postop Eval I Current Vital Signs Temperature: 96.9 F Pulse Rate: 76 Blood Pressure: 113/58 Respiratory Rate: 14 Pulse Ox: 97 Oxygen Delivery Method: Nasal Cannula Oxygen Flow Rate (L/min): 2 Assessment Airway patent: Yes Spontaneous unlabored respirations: Yes Mental status: Awake and Calm nausea: No Vomiting: No Anesthesia Complication: No Fluid Hydration Crystalloid volume administer (ml): 1,000 Total IV fluid infused: 1,000 Progress Note Anesthesia document: Postop Eval 1 completed: Yes
--- NOTE | 2024-08-03 13:10 | RAD_ITS ---
STUDY: X-RAY - PELVIS AND RIGHT HIP REASON FOR EXAM: Female, 64 years old. Postoperative evaluation after total hip arthroplasty. TECHNIQUE: 2 views of the pelvis and hip. COMPARISON: None. FINDINGS: Right total hip arthroplasty in anatomic alignment with expected post-operative findings. There are no complications noted. RAD/Hip Min 2 Views (Portable) IMPRESSION: Placement of total hip arthroplasty in anatomic alignment without complications. Electronically Signed: Serge James MD at 13:23 EDT ,
--- NOTE | 2024-08-03 13:26 | POSTOPAN2_ITS ---
Anesthesia Postop Eval I Sum Postop Eval Completion status Anesthesia document: Postop Eval 1 completed: Yes Anesthesia Postop Eval I Summary Anesthesia Postop Eval I Summary: Anesthesia Postop Eval I: Assessment Summary Airway patent Yes 08/03/24 13:08 [email or web address] Spontaneous unlabored Yes 08/03/24 13:08 [email or web address] [email or web address] respirations Mental status Awake,Calm 08/03/24 13:08 [email or web address] nausea No 08/03/24 13:08 MOOSE [email or web address] Vomiting No 08/03/24 13:08 [email or web address] [email or web address] Anesthesia Postop Eval I: Fluid Summary Crystalloid volume administer 1,000 08/03/24 13:08 [email or web address] (ml) Colloids volume administered ( ml) Blood Product volume administered (ml) Total IV fluid infused 1,000 08/03/24 13:08 [email or web address] [email or web address] Anesthesia Postop Eval I: Summary Notes Anesthesia Complication No 08/03/24 13:08 MOOSE [email or web address] Anesthesia Complication Comment: Post-operative progress note Anesthesia: Postop Eval II Evaluation Mental status: Awake Pain Level: 0 nausea: No Vomiting: No
--- NOTE | 2024-08-03 13:26 | PCM.POSTANE2 ---
Anesthesia Postop Eval I Sum Postop Eval Completion status Anesthesia document: Postop Eval 1 completed: Yes Anesthesia Postop Eval I Summary Anesthesia Postop Eval I Summary: Anesthesia Postop Eval I: Assessment Summary Airway patent Yes 08/03/24 13:08 PARAPROFESSIONAL [email or web address] Spontaneous unlabored Yes 08/03/24 13:08 PARAPROFESSIONAL [email or web address].[email or web address] respirations Mental status Awake,Calm 08/03/24 13:08 PARAPROFESSIONAL [email or web address].[email or web address] nausea No 08/03/24 13:08 PARAPROFESSIONAL INTERPRETER.[email or web address] Vomiting No 08/03/24 13:08 PARAPROFESSIONAL INTERPRETER.[email or web address] Anesthesia Postop Eval I: Fluid Summary Crystalloid volume administer 1,000 08/03/24 13:08 PARAPROFESSIONAL [email or web address].[email or web address] (ml) Colloids volume administered ( ml) Blood Product volume administered (ml) Total IV fluid infused 1,000 08/03/24 13:08 PARAPROFESSIONAL [email or web address].[email or web address] Anesthesia Postop Eval I: Summary Notes Anesthesia Complication No 08/03/24 13:08 PARAPROFESSIONAL INTERPRETER.[email or web address] Anesthesia Complication Comment: Post-operative progress note Anesthesia: Postop Eval II Evaluation Mental status: Awake Pain Level: 0 nausea: No Vomiting: No
--- NOTE | 2024-08-03 13:58 | EKG12_ITS ---
Test Reason : post op cp Blood Pressure : / mmHG Vent. Rate : 075 BPM Atrial Rate : 075 BPM P-R Int : 182 ms QRS Dur : 084 ms QT Int : 422 ms P-R-T Axes : 052 051 067 degrees QTc Int : 471 ms Normal sinus rhythm Normal ECG Confirmed by SANDRINE FORD, KYLAH ([id number]), multimedia editor LEVI NIX ([id number]) on 08/06/2024 1:01:11 PM Referred By: Virgilio Mead Confirmed By:KYLAH DELUCA MD
[2024-08-03 14:25] LABS: Troponin-I HS 6 pg/mL (3.0-54.0)
[2024-08-03] MEDS: Lactated Ringers 1,000 ML 125 ML IV (15:14)
--- NOTE | 2024-08-03 15:18 | PCM.CONS.GEN ---
Assessment & Plan Assessment/Plan (1) Osteoarthritis of right hip: (2) Status post right hip replacement: (3) Hypertension: PLAN: Plan Patient is a 64-year-old female who presented to [facility] on 08/03/2024 for planned right hip replacement. Medicine consulted postoperatively for medical management. 1. Right hip primary osteoarthritis ? Orthopedic surgery primary. S/p right total hip replacement with Dr. Mead on 08/03. Patient tolerated procedure well, no intraoperative complications. Pain control with scheduled Tylenol, oxycodone as needed and IV morphine as needed. DVT prophylaxis with baby aspirin twice daily. PT/OT/case management consulted. CBC and BMP 2 weeks prior to procedure were benign, follow-up postop labs tomorrow morning. Further management per orthopedics. 2. History of TIA, hypertension, hyperlipidemia ? Blood pressure stable postoperatively. Continue home atenolol and atorvastatin. On baby aspirin twice daily as noted above. 3. CKD stage II-III ? Creatinine 1.07 on 07/20 preop labs, at baseline. Follow-up postop labs tomorrow morning. 4. Anxiety/depression ? Stable. Continue home BuSpar and sertraline. 5. Morbid obesity ? BMI 41 on admit. Complicates hospital course, care and prognosis. DVT prophylaxis: Baby aspirin twice daily Total clinical time spent by myself addressing the patient's medical issues, reviewing all the data, and collaborating with patient's care team: 35 minutes. HPI Consult Data Date of Consult: 08/03/24 HPI Narrative Reason for Consultation: Postoperative medical management HPI Narrative: ARRON SMITH, is a 64 F who presented to [facility] on 08/03/2024 for planned right hip replacement. Medicine consulted postoperatively for medical management. Saw patient at bedside this afternoon. Patient had successful right total hip replacement with Dr. Mead this morning. When I saw her, she was awake and alert and sitting up comfortably in bed. She was breathing comfortably on 2 L nasal cannula with oxygen saturations in the high 90s. Stated that she felt well currently, denied any right hip pain or discomfort. She had an ice pack on her right hip and was tolerating this without issue. She had not gotten out of bed yet since coming up from the PACU. She denied any other concerns at this time. [facility] Medical History Wears glasses Post-menopausal History of steroid therapy History of renal disease History of hiatal hernia History of echocardiogram Kidney abscess Hypothyroidism CPAP (continuous positive airway pressure) dependence Sleep apnea CKD (chronic kidney disease), stage III Morbid obesity Anxiety and depression Arthritis Hyperlipidemia Hypertension Family history of cholecystectomy Chronic back pain Home Medications ?Medication ?Instructions ?Recorded ?Last Taken ?Type atenolol 50 mg tablet 50 mg PO DAILY BP 09/10/23 08/03/24 History buspirone 10 mg tablet 10 mg PO BID mental health 09/10/23 08/02/24 History celecoxib 100 mg capsule (Celebrex) 100 mg PO BID PRN pain 09/10/23 08/01/24 History cholecalciferol (vitamin D3) 25 25 mcg PO DAILY vitamin 09/10/23 08/02/24 History mcg (1,000 unit) capsule (Vitamin D3) sertraline 100 mg tablet 200 mg PO DAILY mental health 09/10/23 08/02/24 History tramadol 50 mg tablet 100 mg PO Q6H PRN pain 09/10/23 07/31/24 History aspirin 81 mg chewable tablet 81 mg PO BREAKFAST heart health #0 09/11/23 08/02/24 Rx tabs atorvastatin 40 mg tablet 40 mg PO QHS cholesterol #30 tabs 09/11/23 08/02/24 Rx acetaminophen 500 mg capsule 1,000 mg PO Q6H PRN pain 07/20/24 08/02/24 History Allergy/AdvReac Type Severity Reaction Status Date / Time No Known Allergies Allergy Verified 08/03/24 10:00 Family History Mother Breast cancer Heart disease Father MVA (motor vehicle accident) when patient was baby secondary to MVA, no history medically prior. Surgical History History of vocal cord polypectomy Hx laparoscopic cholecystectomy H/O partial thyroidectomy H/O: hysterectomy Social History household members: significant other Smoking Status: Never smoker alcohol intake: never substance use type: does not use ROS Constitutional Constitutional: Denies chills, fatigue, fever(s) or weakness Cardiovascular Cardiovascular: Denies chest pain Respiratory/Chest Respiratory/Chest: Denies shortness of breath at rest Gastrointestinal Gastrointestinal: Denies abdominal pain Musculoskeletal Musculoskeletal: Denies joint pain or joint swelling Physical Exam Const alert, oriented x3 and no apparent distress Constitutional Narrative: Pleasant elderly female, morbidly obese, sitting up comfortably in bed, conversing normally, in no acute distress. General Appearance: cooperative and comfortable HEENT normocephalic, head/scalp atraumatic, hearing grossly normal bilaterally, nasal mucous membranes and turbinates normal and moist oral mucous membranes Eyes PERRL, EOMs intact bilaterally and conjunctivae normal Neck full ROM Chest inspection of chest normal Resp normal respiratory effort, normal air movement, no use of accessory muscles and clear to auscultation bilaterally Resp Narrative: Breathing comfortably on 2 L nasal cannula with good air movement bilaterally throughout. No wheezing or crackles noted. Cardio regular rate, regular rhythm, no murmurs and peripheral pulses 2+ throughout GI normal to inspection, nondistended, normoactive bowel sounds, soft to palpation, non-tender and non-distended Back/Spine normal ROM Extremity Extremity Narrative: Right hip with dressing in place and ice pack applied. No gross abnormalities on visual exam. No tenderness to mild palpation of the hip joint. Skin no rashes or lesions noted Neuro moves all extremities and no focal motor deficits Speech: speech normal Psych mental status grossly normal Lab / Micro Data 07/20/24 14:10 07/20/24 14:10 Labs: Laboratory Results - last 24 hr 08/03/24 10:13: POC Glucose 178 H 08/03/24 14:03: Troponin I High Sens 6 Imaging Radiology Impression Hip/Pelvis X-Ray 08/03/24 10:15 IMPRESSION: Intraoperative digital documentation views. Electronically Signed: Serge James MD at 12:30 EDT Reading Location ID and State: [facility] / [place] , Service support , Hip X-Ray 08/03/24 13:10 IMPRESSION: Placement of total hip arthroplasty in anatomic alignment without complications. Electronically Signed: Serge James MD at 13:23 EDT Reading Location ID and State: [facility] / [place] , Service support , Charges/Coding Visit Charges Inpatient E&M: 26404 Subs Hosp L2
[2024-08-03] MEDS: Aspirin 81 MG TAB.CHEW PO (16:58)
[2024-08-03] MEDS: Cefazolin 1 GM/50 ML BAG IV ×2 (16:58→21:46)
[2024-08-03] MEDS: Ensure Surgery 237 ML LIQUID PO (17:01)
[2024-08-03] MEDS: oxyCODONE 5 MG Tablet PO ×2 (18:07→22:00)
[2024-08-03] MEDS: Senna/Docusate Sodium 1 Tablet 2 TABLET PO (21:47)
[2024-08-03] MEDS: busPIRone 5 MG Tablet 10 MG PO (21:47)
[2024-08-03] MEDS: Atorvastatin Calcium 40 MG Tablet PO (21:47)
[2024-08-04 03:00] VITALS: BP 142/76; PULSE 64; RESP 18; TEMP 36.7; O2SAT 100
[2024-08-04] MEDS: oxyCODONE 5 MG Tablet PO ×2 (03:05→13:43)
[2024-08-04] MEDS: Acetaminophen 500 MG Tablet 1000 MG PO ×2 (05:16→13:11)
[2024-08-04 07:03] LABS: Hematocrit 36.8 % (37-47); Hemoglobin 12.3 g/dL (12.0-15.0); Mean Corp Hgb Conc 33.4 g/dL (32-36); Mean Corpuscular Hgb 29.2 pg (27.0-32.0); Mean Corpuscular Volume 87.4 fL (81-99); Mean Platelet Vol. 9.3 fl (6.2-12.0); Platelet Count 142 K/mm3 (150-450); RBC Distribution Width CV 12.3 % (11.6-14.6); RBC Distribution Width SD 39.4 fl (35.1-43.9); Red Blood Count 4.21 M/mm3 (4.2-5.4); White Blood Count 8.2 K/mm3 (4.4-11.0)
[2024-08-04 07:09] LABS: Anion Gap 6 (5-15); BUN 15 mg/dL (7-18); BUN/Creat Ratio 16.6 RATIO (10-20); Chloride 106 mmol/L (98-107); EST Glomerular Filtration Rate 66 mL/min (>60); Est Glom Filt Rate - Afr Amer 80 mL/min (>60); Estimated Creatinine Clearance 69.09 ml/min; Glucose 148 mg/dL (74-106); Potassium 4.2 mmol/L (3.5-5.1); Sodium Level 138 mmol/L (136-145)
--- NOTE | 2024-08-04 07:55 | PCM.PN.ORT ---
Subjective Subjective The patient was sitting in bed upon examination. Patient denies any chest pain, shortness of breath, dizziness, lightheadedness, nausea or vomiting, or calf pain. Pain is controlled on medications. No adverse overnight events. Patient is currently using nasal oxygen overnight. She has history of obstructive sleep apnea. She uses a CPAP at home. She denies any shortness of breath or chest pain. She did have some dizziness yesterday that has resolved. Patient has been up walking. Her pain is adequately controlled this morning. Patient does complain of some thigh soreness. Objective Data Objective Data Vital Signs: Vital Signs Temp Pulse Resp BP Pulse Ox O2 Del Method O2 Flow Rate 98.0 F 64 18 142/76 H 100 Nasal Cannula 2 08/04/24 03:00 08/04/24 03:00 08/04/24 03:00 08/04/24 03:00 08/04/24 03:00 08/04/24 03:00 08/04/24 03:00 Oxygen Flow Rate (L/min) 2 Oxygen Delivery Method Nasal Cannula Weight: 102.8 kg Body Mass Index (BMI) 41.4 Intake & Output: Intake and Output for Last 24 Hours 08/02/24 08/03/24 08/04/24 23:59 23:59 23:59 Intake Total 5388 / 5388 300 / 300 Balance 5388 / 5388 300 / 300 Lab / Micro Data 08/04/24 06:24 08/04/24 06:24 Labs: Laboratory Results - last 24 hr 08/03/24 10:13: POC Glucose 178 H 08/03/24 14:03: Troponin I High Sens 6 08/04/24 06:24: WBC 8.2, RBC 4.21, Hgb 12.3, Hct 36.8 L, MCV 87.4, MCH 29.2, MCHC 33.4, RDW Std Deviation 39.4, RDW Coeff of Romario 12.3, Plt Count 142 L, MPV 9.3, Sodium 138, Potassium 4.2, Chloride 106, Carbon Dioxide 26.0, Anion Gap 6, BUN 15, Creatinine 0.90, Estim Creat Clear Calc 69.09, Est GFR (MDRD) Af Amer 80, Est GFR (MDRD) Non-Af 66, BUN/Creatinine Ratio 16.6, Glucose 148 H, Calcium 9.0 Micro: Microbiology 07/20/24 14:10 Swab (Method) Nasal Screen MRSA/MSSA - Final Radiography Diagnostic Testing: Radiology Impression Hip/Pelvis X-Ray 08/03/24 10:15 IMPRESSION: Intraoperative digital documentation views. Electronically Signed: Serge James MD at 12:30 EDT Reading Location ID and State: [facility] / [place] , Service support , Hip X-Ray 08/03/24 13:10 IMPRESSION: Placement of total hip arthroplasty in anatomic alignment without complications. Electronically Signed: Serge James MD at 13:23 EDT Reading Location ID and State: [facility] / [place] , Service support , Physical Exam Narrative Vital signs stable and afebrile. Right thigh is soft and supple SCDs and JERROD hose are in place bilaterally Patient is able to plantarflex and dorsiflex actively. Sensation is intact to light touch to saphenous, sural, superficial and deep peroneal, and tibial distribution. Dressing is clean dry and intact. Negative Homans bilaterally, negative signs and symptoms of DVT. Const alert, oriented x3 and no apparent distress Assessment & Plan Assessment/Plan (1) S/P total right hip arthroplasty: PLAN: 1. S/P right direct anterior total hip arthroplasty POD #1 2. Continue Pain Medications: Tylenol and oxycodone. We are holding off of nonsteroidal anti-inflammatories as patient only has 1 kidney and chronic kidney disease. She has taken Celebrex in the past. I did advise her that if she needs additional pain medications to discuss with her primary care physician about adding back in her Celebrex. I did explain to her that there are risks associated with her chronic kidney disease. She did voiced understanding. I also explained to the patient she should not be taking any of the tramadol that she has leftover at home and combining it with the oxycodone. She did voiced understanding. 3. DVT Prophylaxis: Take 81 mg aspirin twice daily for 4 weeks postoperatively for DVT prophylaxis. Patient denies past history of DVT or pulmonary embolism. 4. PT/OT: Weightbearing as tolerated with walker. Continue anterior hip precautions 5. H & H: 12.3/36.8, asymptomatic. Labs have been reviewed and stable 6. Currently on doxycycline for 2 weeks postoperatively due to morbid obesity and preoperative findings in which patient was staph positive. I discussed with the patient potential side effects of doxycycline including sensitivity to the sunlight and increased risk of skin burn. Recommend patient take appropriate precautions. Also recommend patient to take probiotic while on the antibiotic. Patient voiced understanding agreement. 7. Postoperative dressing: Patient will remove the dressing on postoperative day #5. I did advise the patient that she should use a sterile 4 x 4 dressing and change once or twice daily so that there is no proximal incision breakdown from the pannus. She should do this for approximately 3-4 weeks postoperatively until the incision is well-healed. She did voiced understanding. 8. Encouraged Incentive Spirometry 9. Patient is aware of postoperative constipation that can occur from 1-3 days postoperatively. Will continue with senna 2 tablets twice daily until first bowel movement. Patient was advised if not having a bowel movement after day 3 she is to contact orthopedics so appropriate change can be made. Patient voiced understanding. 10. Continue postoperative medical treatment per medicine 11. Disposition: Plan will be for discharge home today as long as patient remains medically stable, tolerates therapy, and pain is adequately controlled. She does have some thigh soreness in which I did recommend she do some gentle massage avoiding the incision. This is a common postoperative complaint. Patient would like her prescriptions [facility] scrib[facility]. She [facility] about [facility] and I did recommend she keep all receipts and turn those in. Patient will follow-up per postoperative instructions. She does have outpatient physical therapy established. Upon discharge she will contact our office with any concerns or questions. I have reviewed the [place] Automated Rx Reporting System (OARRS) report for this patient for refill pattern and other prescriber involvement as part of the appropriate surveillance for the provision of acute and chronic controlled medications. The report was requested and reviewed on the date of this entry and was considered in the prescribing process. This dictation was created using voice recognition software. Phonetic and/or grammatical errors may exist.
--- NOTE | 2024-08-04 08:02 | PCM.DC ---
Discharge Instructions Diet Discharge Diet: No restrictions Activity Discharge Activity: May Not Drive (No driving for 6 weeks postoperatively. Must also be off all narcotics and able to walk 100 feet without the use of cane or walker.) May shower in (days): 1 (only if incision is dry and without drainage. Do NOT soak/submerge in tub/pool/singh/stream/hot tub.)) Ice area for (Minutes): 20 (Every 1-2 hours while awake[address] place barrier between ice and skin.) Weight Bearing Status: Weight bearing as tolerated Keep extremity elevated above heart level: Operative Extremity Dressing / Incision Call your doctor if your incision/area has: Continuous Slow Oozing, Sudden Increased Bleeding, Increased Pain/ Swelling, Increased Redness and Foul Smelling Discharge Call your doctor if you observe: Fever of 101 or Higher, Shortness of breath, Chest pain, Calf discomfort and Uncontrolled pain Remove Dressing in: 4 days (Okay to remove dressing on August 08, 2024) Additional Dressing/Incision Instructions:: Follow [facility] Post-op Instructions. Once postoperative dressing has been removed, only use gentle soap and water over the incision. Do not use any ointments, Neosporin, salves, alcohol pads over the incision for 6 weeks postoperatively. Do not submerge underwater for [address] 4 x 4 dressing in the skin fold at the proximal incision and keep clean and dry. Can change this once or twice daily as needed. Do this for 4 weeks postoperatively Continue with JERROD hose/elastic stockings for 2 weeks postoperatively. May remove at nighttime but needs to be placed back on the leg during the day. Do NOT use alcohol with narcotic pain medication. Do NOT make important decisions while taking narcotic medication. If you have problems with taking your medication (rash, itching, nausea, etc.) call the office at once. Follow Up Care Test Results: Test results from this visit will be discussed in further detail at your follow-up appointment, if applicable. Discharge Plan Admission Admit Date/Time: 08/03/24 07:22 Attending Provider: Virgilio Mead Primary Care Provider: [facility],[place] Consulting Providers: Wesley Hernandez; Dodie Thompson Discharge Orders/Prescriptions Prescriptions: New acetaminophen 500 mg Tablet 1,000 mg PO Q8 14 Days Qty: 84 0RF Rx Instructions: Take 81 mg aspirin twice daily for 4 weeks postoperatively for DVT prophylaxis. Patient denies past history of DVT or pulmonary embolism. doxycycline monohydrate 100 mg Capsule 100 mg PO BID 14 Days Qty: 28 0RF aspirin 81 mg Tablet,Chewable 81 mg PO BIDCM 30 Days Qty: 60 0RF Rx Instructions: Take 81 mg aspirin twice daily for 4 weeks postoperatively for DVT prophylaxis. After 4 weeks you will then go back to your normal 81 mg aspirin daily famotidine 20 mg Tablet 20 mg PO DAILY 30 Days Qty: 30 0RF oxycodone 5 mg Tablet 5 - 10 mg PO Q4H PRN PRN (Reason: Pain Score 4-10) 7 Days Qty: 42 0RF sennosides-docusate sodium [Stimulant Laxative Plus] 8.6-50 mg Tablet 2 tab PO BID 3 Days Qty: 12 0RF Rx Instructions: Take until first bowel movement, then as needed Continued cholecalciferol (vitamin D3) [Vitamin D3] 25 mcg (1,000 unit) capsule 25 mcg PO DAILY buspirone 10 mg tablet 10 mg PO BID atenolol 50 mg tablet 50 mg PO DAILY sertraline 100 mg tablet 200 mg PO DAILY atorvastatin 40 mg tablet 40 mg PO QHS Qty: 30 0RF Discontinued celecoxib [Celebrex] 100 mg capsule 100 mg PO BID PRN (Reason: pain) tramadol 50 mg tablet 100 mg PO Q6H PRN (Reason: pain) aspirin 81 mg Tablet,Chewable 81 mg PO BREAKFAST Qty: 0 0RF acetaminophen 500 mg capsule 1,000 mg PO Q6H PRN (Reason: pain) Referrals / Follow Up: Physical,Therapy [Other] - 08/06/24 2:30 pm Yvette Tan PA [Med Staff - Adv Practice Prof] - 08/17/24 3:45 pm [facility],[place] [Primary Care Provider] - Disposition Disposition (needs filled in before D/C Order can be placed): Home, Self Care
[2024-08-04 08:57] VITALS: BP 114/47; PULSE 78; RESP 18; TEMP 36.5; O2SAT 96
[2024-08-04] MEDS: Atenolol 50 MG Tablet PO (09:01)
[2024-08-04] MEDS: Cholecalciferol (VIT D3) 25 MCG TABLET (1,000 UNITS) PO (09:01)
[2024-08-04] MEDS: busPIRone 5 MG Tablet 10 MG PO (09:01)
[2024-08-04] MEDS: Aspirin 81 MG TAB.CHEW PO (09:02)
[2024-08-04] MEDS: Senna/Docusate Sodium 1 Tablet 2 TABLET PO (09:02)
[2024-08-04] MEDS: Famotidine 20 MG Tablet PO (09:02)
[2024-08-04] MEDS: Sertraline 100 MG Tablet 200 MG PO (09:02)
[2024-08-04] MEDS: Ensure Surgery 237 ML LIQUID PO (09:05)
--- NOTE | 2024-08-04 09:47 | CASEMGMT ---
Met with patient to complete ANTONY form. ANTONY form explained to patient who voiced understanding and signed form. Original form placed in pt?s chart and copy provided to patient. Erika Broussard, Discharge Planning Asst
--- NOTE | 2024-08-04 10:20 | CASEMGMT ---
[place] Assessment: Face to Face with pt for initial transition planning/care coordination assessment. [place] introduced self and role at [facility], pt voices understanding and consents to assessment. Pt is A&O x4 and answers all questions appropriately at this time. Pt sitting up in chair, just finished with OT. Care providers, pharmacy, and demographics verified/updated. Admitting Dx: Anterior R total hip arthoplasty Strata Score: 1 PCP:Karen Julian Specialists:ronal Mead; [facility] providers- chiropractor, psychologist and therapist Preferred Pharmacy: [facility] Retail- pt states she will pay self pay Insurance: [facility], [facility] Prescription Benefit: yes- [facility] only LNOK: Zoey Salinas, friend Living Arrangements: Pt lives with friend in a two story home with 2 steps to enter. Pt reports prior to surgery she was I in ADLs and IADLs except Zoey did the laundry as it is in the basement. Pt denies concerns at home. Transportation: Pt drives self and denies concerns with transportation. Pt friend and neighbor will transport her until she can drive again. DME:BP cuff, CPAP, cane, FWW HHC/SNF: Denies hx of Pt states no concerns with going home at time of dc. Pt has outpt therapy set up for at [facility]. Pt is going to call to see if a shower bench can be ordered for her. If not, she states she will borrow from a friend. Pt states no further concerns/needs. CM to follow. Advised pt to ask CM if any further question/concerns/needs arise, voices understanding. Pt Goal: Home with outpt therapy set up Plan: Home with outpt therapy set up Pt asks what address is listed as [facility]. Made her aware it states [place]. She states that if it says [address] or [place], [place] she will get a bill. She states she spoke with registration and asked them to change it to [facility]. She is aware that this RN CM will call registration. TC gael Hawkins in registration, made aware of the above. She states that the payor ID matches and claims do not get mailed much anymore. She states she will reach out to her director regarding this. Jose REEDER CM
[2024-08-04] MEDS: Doxycycline 100 MG CAPSULE PO (13:12)
[2024-08-04 13:21] VITALS: BP 137/58; PULSE 71; RESP 16; TEMP 36.7; O2SAT 98
--- NOTE | 2024-08-04 14:06 | PN_ITS ---
Subjective Subjective Patient seen and examined. She felt well and had no active complaints. She she had an uneventful night and pain was well-controlled. Review of systems otherwise negative. Objective Data Objective Data Vital Signs: Vital Signs Temp Pulse Resp BP Pulse Ox O2 Del Method O2 Flow Rate 98.1 F 71 16 137/58 H 98 Room Air 2 08/04/24 13:21 08/04/24 13:21 08/04/24 13:21 08/04/24 13:21 08/04/24 13:21 08/04/24 13:21 08/04/24 08:00 Oxygen Flow Rate (L/min) 2 Oxygen Delivery Method Room Air Weight: 226 lb 10.163 oz Body Mass Index (BMI) 41.4 Intake & Output: Intake and Output for Last 24 Hours 08/02/24 08/03/24 08/04/24 23:59 23:59 23:59 Intake Total 5388 / 5388 650 / 650 Balance 5388 / 5388 650 / 650 Lab / Micro Data 08/04/24 06:24 08/04/24 06:24 Labs: Laboratory Results - last 24 hr 08/03/24 14:03: Troponin I High Sens 6 08/04/24 06:24: WBC 8.2, RBC 4.21, Hgb 12.3, Hct 36.8 L, MCV 87.4, MCH 29.2, MCHC 33.4, RDW Std Deviation 39.4, RDW Coeff of Romario 12.3, Plt Count 142 L, MPV 9.3, Sodium 138, Potassium 4.2, Chloride 106, Carbon Dioxide 26.0, Anion Gap 6, BUN 15, Creatinine 0.90, Estim Creat Clear Calc 69.09, Est GFR (MDRD) Af Amer 80, Est GFR (MDRD) Non-Af 66, BUN/Creatinine Ratio 16.6, Glucose 148 H, Calcium 9.0 Micro: Microbiology 07/20/24 14:10 Swab (Method) Nasal Screen MRSA/MSSA - Final Physical Exam Const alert, oriented x3, no apparent distress and well nourished General Appearance: cooperative HEENT normocephalic, head/scalp atraumatic, moist oral mucous membranes and oropharynx normal Eyes PERRL and EOMs intact bilaterally Neck no lymphadenopathy, supple and no JVD Lymph Lymphatic: no lymphadenopathy noted and no lymphedema noted Resp normal respiratory effort, normal air movement and clear to auscultation bilaterally Cardio regular rate, regular rhythm, S1 normal heart sound, S2 normal heart sound and no murmurs GI normal to inspection, nondistended, normoactive bowel sounds, soft to palpation, non-tender and non-distended Extremity Extremity Narrative: intact dressing over right hip Skin Skin Narrative: as under extremity Neuro CN's II-XII intact bilaterally and no focal motor deficits Motor Exam: general weakness Psych thought process normal and cooperative Appearance: appropriate Assessment & Plan Assessment/Plan (1) S/P total right hip arthroplasty: (2) Hypertension: PLAN: Plan #Right hip osteoarthritis s/p right total hip arthroplasty * management as per orthopedics * on PO tylenol and PO oxycodone. * PT/.OT On board. * Fall precautions * incentive spirometry. * #Mild thrombocytopenia: * Platelets at 142. Were 187 yesterday. * Has had intermittent mild thrombocytopenia in the past with platelets being 149 on 09/11/2023 and 145 on 03/09/2024. * Will monitor closely for now. * #Hypertension: on atenolol. #Hyperlipidemia: on statin #Impaired glucose tolerance: * A1C is 5.9 from 03/09/2024. * To follow up with PCP on outpatient basis for A1C to be checked, and for metformin to be commenced as deemed necessary. * #History of TIA: on aspirin, statin. * #Anxiety and depression; on buspar and sertraline. #Morbid obesity: BMI is 41.5. Complicates acute care, expected recovery and prognosis. DVT prophylaxis: on aspirin bid as per orthopedics. Charges/Coding Visit Charges Inpatient E&M: 50449 Subs Hosp L2
== END 2024-08-04 16:43 | disposition home or self-care (01) ==
LOC: SDC 14:41 → AC 14:41 → SDC 14:41 → MS3 14:41
PROVIDERS: Anesthesiology; Admitting Provider Specialist; Referring Provider Specialist; Visit Provider Specialist
PROC: (CPT 27284; principal; 2024-08-03 10:50)
DX: M16.11 Unilateral primary osteoarthritis, right hip (principal); E66.01 Morbid (severe) obesity due to excess calories; Z68.41 Body mass index [BMI] 40.0-44.9, adult; N18.30 Chronic kidney disease, stage 3 unspecified; E78.00 Pure hypercholesterolemia, unspecified; I12.9 Hypertensive chronic kidney disease with stage 1 through stage 4 chronic kidney disease, or unspecified chronic kidney disease; G47.30 Sleep apnea, unspecified; F32.A Depression, unspecified; F41.9 Anxiety disorder, unspecified; Z79.899 Other long term (current) drug therapy; Z86.73 Personal history of transient ischemic attack (TIA), and cerebral infarction without residual deficits; E03.9 Hypothyroidism, unspecified; Z79.82 Long term (current) use of aspirin; K21.9 Gastro-esophageal reflux disease without esophagitis
CPT/HCPCS: 27130; 01214; 36415; 73501; 73502; 76000; 80048; 82040; 82962; 83735; 84484; 85025; 85027; 87077; 87081; 88305; 88311; 93005; 94668; 96361; 96365; 96376; 97116; 97162; 97166; 97530; 97535; 99221; 99252; C1776; J7040; J7120; G0378; G0463; J3475

== ENCOUNTER 2024-10-09 10:30 | Outpatient (RCR) | payer OTHER, SELFPAY ==
--- NOTE | 2024-08-06 18:20 | HP.PTEVAL ---
Patient's Visit Information Visit Information Visit Information: ARRON SMITH is a 64 year old F referred to Physical Therapy by Kenneth Strong PA-C with a diagnosis of PRESENCE OF RIGHT ARTIFICIAL HIP JOINT. Date of Evaluation: 08/06/24 Physical Therapist: Ivan Castaneda, PT, Cert MDT, OCS Visit Plan Frequency: 2x /Week Duration: 7 WEEKS Plan: S/P ANTERIOR APPROACH VIKTOR ANTERIOR PRECAUTIONS NO SLR PT INTERVENTIONS AROM,STRENGTHENING RIGHT QUADS/HAMS/HIP ,GAITING TRAINING ,FUNCTIONAL STRENGTHENING AND NUSTEP Subjective Subjective: This 64 y/o female presents to physical therapy with s/p right VIKTOR done at [facility] by Dr Mead on 08/03/24 and d/c 08/04/24. Patient had anterior min invasive approach. Patient d/c with fww WBAT RLE. 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 Patient had x-rays severe DJD with hip. Patient had no prior PT except Aquatic therapy. Patient medication hydrocodine . Patient pain is minimal . Patient denies paresthesia/tingling. Patient has anterior hip precaution no SLR. Patient lives 2 story with 2 steps stays on 1 st floor ,bed /bath 10 steps full bath and 1/2 bath downstairs . Patient plans to get shower chair. Prior to surgery patient used cane . Patient condition affects QOL and function /gait. Patient goals to walk no device and RTW. 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 Pain Right Hip: Pain Intensity (Out of 10): 7 Pain Intensity Range: 10 Objective Objective: POSTURE: mild forward posture SKIN: incision anterior bandage dressing intact NEURO: denies parestehesia/tingling EDEMA: 2+ thigh GAIT: ambulates with fww with WBAT RLE slow diana mild forward posture AROM: supine knee flexion 80 degrees ,hip flexion 80 degrees and hip abd 25 degrees MMT: ( peak force) quads 0 ,hamstrings 0 , hip flexion,hip extension 0 STAIRS: 3 steps with rail Balance/Special Test Scores Lower Extremity Functional Score: 3 WOMAC Total Score: 49 WOMAC Percentatge: 46.7400 Goals Goal 1:: Patient to be I with HEP Goal Time Frame: 6-8 Weeks Goal 2:: Patient to ambulate with cane with reciprocal pattern. Goal Time Frame: 4-6 Weeks Goal 3:: Patient to improve peak force quads/hams/hip by 10-15 # to improve function Goal Time Frame: 6-8 Weeks Goal 4:: Patient to improve WOMAC score by 10 15 points to imprOve QOL Goal Time Frame: 6-8 Weeks Goal 5:: Patient to improve TUG score by under 20 sec to improve safe gait Goal Time Frame: 6-8 Weeks Goal 6:: Patient to improve LFES score by 5-10 points to improve QOL and gait. Goal Time Frame: 6-8 Weeks Rehabilitation Potential Physical Therapy Diagnosis: This patient and hip underwent s/p VIKTOR anterior approach right with decrease ROM ,weakness hip quads/hip /hamstrings ,balance and stairs thus benefit from skilled PT Rehabilitation Potential: Good Anticipated Interventions Patient/Client Instruction: Educate patient on: Condition and Plan of Care For the Purpose of:: To decrease pain, To increase ROM, To improve muscle performance and motor function, To improve ability to perform ADL's, To increase tolerance to activity/condition/position, To improve ability of physical actions for home/community/work/leisure, To improve gait and locomotor functions, To improve health of tissue, To decrease soft tissue restriction, To increase flexibility/ROM, To improve endurance and To improve balance Therapeutic Exercise to Include: Strength training, Endurance training, Balance training, Flexibilty training, Gait and locomotor training and Active ROM Comment: QUADS/HAMS/HIP For the Purpose of:: To decrease pain, To increase ROM, To improve muscle performance and motor function, To improve ability to perform ADL's, To increase tolerance to activity/condition/position, To improve ability of physical actions for home/community/work/leisure, To improve health of tissue, To decrease soft tissue restriction, To increase flexibility/ROM, To improve endurance, To improve balance, To improve safety with gait, To assume or resume ADL's and To improve tolerance to ADL's Text: Thank you for the opportunity to evaluate your patient. For Medicare and Medicare HMO plans, please review the plan of care and approve it. It will need to be FAXED BACK to us at [phone] for Medicare purposes. For Medicare only, by signing this I certify the plan of care. Please let me know if there are questions or concerns regarding this plan of care. Physician Signature: Date:
== END 2024-10-09 19:00 | disposition home or self-care (01) ==
LOC: PT 10:30
PROVIDERS: Referring Provider Physician Assistant Surgical; Visit Provider Physician Assistant Surgical
DX: Z96.641 Presence of right artificial hip joint (principal); Z47.1 Aftercare following joint replacement surgery
CPT/HCPCS: 97110; 97113; 97162; 97530